=== PATIENT | female | born 1945 | race Caucasian/White ===

== ENCOUNTER → 2016-04-02 | Outpatient (CLI) | payer MEDICARE, MEDICAID | LOC: MW.CHRC 09:12 | PROVIDERS: ATTEND Family Medicine | DX: I10 Essential (primary) hypertension (principal); E78.00 Pure hypercholesterolemia, unspecified; R73.01 Impaired fasting glucose | CPT/HCPCS: 36415; 80053; 80061; 83036; G0463 ==

== ENCOUNTER → 2016-04-29 | Outpatient (CLI) | payer MEDICARE, MEDICAID | LOC: MW.CHPOD 09:16 | PROVIDERS: ATTEND Podiatrist Foot & Ankle Surgery | DX: M79.672 Pain in left foot (principal); S89.92XA Unspecified injury of left lower leg, initial encounter; E66.01 Morbid (severe) obesity due to excess calories; R26.9 Unspecified abnormalities of gait and mobility; M77.9 Enthesopathy, unspecified | CPT/HCPCS: 29540; 99205 ==

== ENCOUNTER → 2016-05-11 | Outpatient (CLI) | payer MEDICARE, MEDICAID ==
--- NOTE | 2016-05-11 16:11 | CR ---
EXAMINATION: Bilateral feet HISTORY: Pain COMPARISON: 12/03/2015 TECHNIQUE: 2 views bilaterally FINDINGS: Postsurgical changes are noted within the left first metatarsal secondary to bunionectomy. There is minimal hallux valgus residually and bilaterally. The osseous structures appear osteopenic . No fracture or dislocation. Mild valgus angulation of the MTP joints the second and third digits b ilaterally. Moderate plantar and Achilles calcaneal enthesophytes are noted. Mild plus planus bilate rally. IMPRESSION: 1. No acute osseous abnormalities. 2. Postsurgical changes within the first left metatarsal. 3. Plantar calcaneal spurs bilaterally. 4. Generalized osteopenia. 5. Mild valgus angulation of the second and third MTP joints.
== END ==
LOC: MW.DI 11:59
PROVIDERS: ATTEND Podiatrist Foot & Ankle Surgery
DX: R26.9 Unspecified abnormalities of gait and mobility (principal); M20.62 Acquired deformities of toe(s), unspecified, left foot; M79.672 Pain in left foot; M77.9 Enthesopathy, unspecified
CPT/HCPCS: 736202650; 73620-50; 99215

== ENCOUNTER → 2016-06-01 | Outpatient (CLI) | payer MEDICARE, MEDICAID | LOC: MW.CHPOD 08:00 | PROVIDERS: ATTEND Podiatrist Foot & Ankle Surgery | DX: S89.92XD Unspecified injury of left lower leg, subsequent encounter (principal); M79.672 Pain in left foot; R26.9 Unspecified abnormalities of gait and mobility; M77.42 Metatarsalgia, left foot | CPT/HCPCS: G0463 ==

== ENCOUNTER → 2016-06-15 | Outpatient (CLI) | payer MEDICARE, MEDICAID ==
--- NOTE | 2016-06-15 14:58 | CR ---
EXAMINATION: Right knee HISTORY: Artificial joint COMPARISON: 06/05/2015 TECHNIQUE: 3 views FINDINGS/IMPRESSION: Right total knee hardware is demonstrated in good position and alignment. No fr acture or acute osseous abnormality. No joint effusion.
== END ==
LOC: MW.CHORTHO 07:07
PROVIDERS: ATTEND Orthopaedic Surgery
DX: Z96.651 Presence of right artificial knee joint (principal); M17.11 Unilateral primary osteoarthritis, right knee
CPT/HCPCS: 73562-26-RT; 73562-RT; G0463

== ENCOUNTER → 2016-06-18 | Outpatient (CLI) | payer MEDICARE, MEDICAID | LOC: MW.CHRC 08:35 | PROVIDERS: ATTEND Family Medicine | DX: I10 Essential (primary) hypertension (principal); E78.00 Pure hypercholesterolemia, unspecified; R73.01 Impaired fasting glucose; G89.4 Chronic pain syndrome; I12.9 Hypertensive chronic kidney disease with stage 1 through stage 4 chronic kidney disease, or unspecified chronic kidney disease; T50.2X5D Adverse effect of carbonic-anhydrase inhibitors, benzothiadiazides and other diuretics, subsequent encounter; E87.6 Hypokalemia | CPT/HCPCS: 36415; 80053; 80061; 83036; 99215 ==

== ENCOUNTER 2016-07-04 20:36 | Emergency (ER) | payer MEDICARE, MEDICAID ==
[2016-07-04] MEDS ORDERED: Morphine 2 MG/ML Syringe IVPUSH ONE (20:44)
[2016-07-04] MEDS ORDERED: Ondansetron 4 MG/2 ML SDV IVPUSH ONE (20:44)
[2016-07-04] MEDS ORDERED: Sodium Chloride 0.9% 1,000 ML IV ONE (20:44)
--- NOTE | 2016-07-04 20:58 | EDM.PDOC ---
ED HPI GENERAL MEDICAL PROBLEM - General Chief Complaint: Back Pain or Injury Stated Complaint: PT HAS BACK PAINS Time Seen by Provider: 07/04/16 20:52 Source of Information: Reports: Patient History Limitations: Reports: No Limitations - History of Present Illness INITIAL COMMENTS - FREE TEXT/NARRATIVE: History of present illness: [71-year-old female brought in by EMS secondary to acute back pain. Patient is lying on gurney stating that she has pain in her abdomen, and back and it feels like the band and she does understand where the pain is coming from patient repeats herself in puzzlement in regards to her pain and why she is hurting. She denies any trauma or any acute changes] Review of systems: As per history of present illness and below otherwise all systems reviewed and negative. Past medical history: As per history of present illness and as reviewed below otherwise noncontributory. Surgical history: As per history of present illness and as reviewed below otherwise noncontributory. Social history: No reported history of drug or alcohol abuse. Family history: As per history of present illness and as reviewed below otherwise noncontributory. Physical exam: HEENT: Atraumatic, normocephalic, pupils reactive, negative for conjunctival pallor or scleral icterus, mucous membranes moist, throat clear, neck supple, nontender, trachea midline. Lungs: Clear to auscultation, breath sounds equal bilaterally, chest nontender. Heart: S1S2, regular, negative for clicks, rubs, or JVD. Abdomen: Soft, obese distended with diffuse non specific tenderness. Negative for masses or hepatosplenomegaly. Negative for costovertebral tenderness. Pelvis: Stable nontender. Genitourinary: Deferred. Rectal: Deferred. Extremities: Atraumatic, negative for cords or calf pain. Neurovascular unremarkable. Neuro: Awake, alert, oriented. Cranial nerves II through XII unremarkable. Cerebellum unremarkable. Motor and sensory unremarkable throughout. Exam nonfocal. Diagnostics: [CBC, CMP, UA] Therapeutics: [IV, morphine, Zofran] Impression: [Back pain acute on chronic] Plan: [Followup with PCP patient on he has pain medication] Definitive disposition and diagnosis as appropriate pending reevaluation and review of above. Treatments SECURITY MONITOR: Reports: IV/IO Lower Back Pain Score (Numeric/FACES): 10 - Related Data Allergies Allergy/AdvReac Type Severity Reaction Status Date / Time Tape adhesives Allergy Blisters Uncoded 12/03/15 11:32 Home Meds: Home Meds Furosemide 40 mg PO BID 11/08/14 [History] Metoprolol Tartrate [Lopressor] 25 mg PO BID 11/08/14 [History] Nitroglycerin [Nitrostat] 0.4 mg SL ASDIRECTED PRN 11/08/14 [History] Oxybutynin Chloride 5 mg PO BID 11/08/14 [History] Pramipexole Di-HCl [Mirapex] 1 mg PO BEDTIME PRN 11/08/14 [History] Rosuvastatin [Crestor] 40 mg PO DAILY 11/08/14 [History] Valsartan 80 mg PO DAILY 11/08/14 [History] FLUoxetine [PROzac] 20 mg PO DAILY 05/22/15 [History] Multivitamin [Multi-Vitamin Daily] 1 tab PO DAILY 05/22/15 [History] Potassium Chloride 10 meq PO DAILY 05/22/15 [History] ALPRAZolam [Alprazolam] 0.5 mg PO BID PRN 08/20/15 [History] Aspirin [Children's Aspirin] 81 mg PO DAILY 08/20/15 [History] Acetaminophen/HYDROcodone [[place] 325-5 MG] 1 tab PO Q6H PRN #14 tablet 12/03/15 [Rx] Gabapentin [Neurontin] 300 mg PO DAILY #30 cap 12/03/15 [Rx] traZODone HCl [Trazodone HCl] 50 mg PO BEDTIME PRN 07/04/16 [History] Past Medical History HEENT History: Reports: Cataract, Impaired Vision Other HEENT History: wears glasses, has upper dentures, loss of peripheral vision. 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 Other Genitourinary History: Stage III Kidney Disease [facility]ER History: Reports: Musculoskeletal History: Reports: Back Pain, Chronic Other Musculoskeletal History: Lot of arthritis to back, hx: fracturing Right and Left ankle, Right and Left arms, 2 toes Neurological History: Reports: None Other Neuro History: Restless Leg syndrome Psychiatric History: Reports: Anxiety, Depression Other Psychiatric History: "Some depression, but have good supports and reach out" Endocrine/Metabolic History: Reports: Obesity/BMI 30+ Other Endocrine/Metabolic History: History of Type I diabetes in dictation, she reports 'abnormal glucose' Hematologic History: Reports: None Immunologic History: Reports: None Oncologic (Cancer) History: Reports: Other (See Below) Other Oncologic History: skin cancer on nose, uterus ca, removal of stomach tumor Dermatologic History: Reports: Other (See Below) Other Dermatologic History: ABnormal cells to face, recent office procedure to remove or freeze - Infectious Disease History Infectious Disease History: Reports: Chicken Pox, Measles - Past Surgical History HEENT Surgical History: Reports: Cataract Surgery, Tonsillectomy, Other (See Below) Cardiovascular Surgical History: Reports: None Female Surgical History: Reports: Hysterectomy Endocrine Surgical History: Reports: None Other Endocrine Surgeries/Procedures: pt states she does not have diabetes Neurological Surgical History: Reports: Discectomy Other Neurological Surgeries/Procedures: 3 discs in back Musculoskeletal Surgical History: Reports: Knee Replacement, Other (See Below) Other Musculoskeletal Surgeries/Procedures:: right knee replacemnt, back surgery L3-L4 Oncologic Surgical History: Reports: Other (See Below) Social & Family History - Family History Family Medical History: Noncontributory Oncologic: Reports: Cervix, Lung, Other (See Below) Other Oncologic Family History: spine - Tobacco Use Smoking Status *Q: Never Smoker Years of Tobacco use: 20 Used Tobacco, but Quit: Yes Month Tobacco Last Used: April Second Hand Smoke Exposure: No - Caffeine Use Caffeine Use: Reports: None - Recreational Drug Use Recreational Drug Use: No Drug Use in Last 12 Months: No ED ROS GENERAL - Review of Systems Review Of Systems: See Below (The history of present illness) ED EXAM, GENERAL - Physical Exam Exam: See Below (See history of present illness) Course - Vital Signs Last Recorded V/S: Last Vital Signs Temp 36.2 C 07/04/16 20:41 Pulse 93 07/04/16 21:09 Resp 18 07/04/16 21:09 BP 149/68 H 07/04/16 21:09 Pulse Ox 93 L 07/04/16 21:09 - Orders/Labs/Meds Labs: Laboratory Tests 07/04/16 07/04/16 07/04/16 Range/Units 21:00 21:00 21:43 WBC 7.63 (4.0-11.0) K/uL RBC 4.81 (4.30-5.90) M/uL Hgb 13.5 (12.0-16.0) g/dL Hct 41.3 (36.0-46.0) % MCV 85.9 (80.0-98.0) fL MCH 28.1 (27.0-32.0) pg MCHC 32.7 (31.0-37.0) g/dL RDW Std Deviation 47.9 (28.0-62.0) fl RDW Coeff of Shu 15 (11.0-15.0) % Plt Count 187 (150-400) K/uL MPV 10.80 (7.40-12.00) fL Neut % (Auto) 41.6 L (48.0-80.0) % Lymph % (Auto) 48.0 H (16.0-40.0) % [place] % (Auto) 6.6 (0.0-15.0) % Eos % (Auto) 3.3 (0.0-7.0) % Baso % (Auto) 0.5 (0.0-1.5) % Neut # (Auto) 3.2 (1.4-5.7) K/uL Lymph # (Auto) 3.7 H (0.6-2.4) K/uL Irion # (Auto) 0.5 (0.0-0.8) K/uL Eos # (Auto) 0.3 (0.0-0.7) K/uL Baso # (Auto) 0.0 (0.0-0.1) K/uL Nucleated RBC % 0.0 /100WBC Nucleated RBCs # 0 K/uL Sodium 142 (136-146) mmol/L Potassium 3.8 (3.5-5.1) mmol/L Chloride 110 (98-110) mmol/L Carbon Dioxide 24 (21-31) mmol/L BUN 38 H (6.0-23.0) mg/dL Creatinine 1.2 (0.6-1.5) mg/dL Est Cr Clr Drug Dosing 36.59 mL/min Estimated GFR (MDRD) 44.2 ml/min Glucose 93 (60-110) mg/dL Calcium 9.8 (8.8-10.8) mg/dL Total Bilirubin 0.7 (0.1-1.5) mg/dL AST 13 (5-40) IU/L ALT 13 (8-54) IU/L Alkaline Phosphatase 58 (40-150) Total Protein 7.3 (6.0-8.0) g/dL Albumin 4.1 (3.4-4.8) g/dL Globulin 3.2 (2.0-3.5) g/dL Albumin/Globulin Ratio 1.3 (1.3-2.8) Urine Color YELLOW Urine Appearance HAZY Urine pH 5.5 (5.0-8.0) Ur Specific Cable 1.015 (1.001-1.035) Urine Protein NEGATIVE (NEGATIVE) mg/dL Urine Glucose (UA) NEGATIVE (NEGATIVE) mg/dL Urine Ketones NEGATIVE (NEGATIVE) mg/dL Urine Occult Blood NEGATIVE (NEGATIVE) Urine Nitrite NEGATIVE (NEGATIVE) Urine Bilirubin NEGATIVE (NEGATIVE) Urine Urobilinogen 0.2 (<2.0) EU/dL Ur Leukocyte Esterase TRACE (NEGATIVE) Urine RBC 0-2 (0-2/HPF) Urine WBC 0-4 (0-5/HPF) Ur Epithelial Cells RARE (NONE-FEW) Ur Renal Epithelial Cell RARE Urine Bacteria FEW (NEGATIVE) Urine Mucus LIGHT (NONE-MOD) Meds: Medications Discontinued Medications Generic Name Dose Route Start Last Admin Trade Name Freq PRN Reason Stop Dose Admin Sodium Chloride 1,000 mls @ 999 mls/hr 07/04/16 20:44 07/04/16 20:59 Normal Saline IV 07/04/16 21:44 999 mls/hr STAT ONE Administration Morphine Sulfate 2 mg 07/04/16 20:44 07/04/16 21:04 Morphine IVPUSH 07/04/16 20:45 2 mg ONETIME ONE Administration Ondansetron HCl 8 mg 07/04/16 20:44 07/04/16 21:01 Zofran IVPUSH 07/04/16 20:45 8 mg ONETIME ONE Administration Departure - Departure Time of Disposition: 22:10 Disposition: Home, Self-Care 01 Condition: good Clinical Impression: Back pain - Discharge Information Instructions: Back Pain, Adult, [id number] Forms: ED Department Discharge Additional Instructions: The following information is given to patients seen in the emergency department who are being discharged to home. This information is to outline your options for follow-up care. We provide all patients seen in our emergency department with a follow-up referral. The need for follow-up, as well as the timing and circumstances, are variable depending upon the specifics of your emergency department visit. If you don't have a primary care physician on staff, we will provide you with a referral. We always advise you to contact your personal physician following an emergency department visit to inform them of the circumstance of the visit and for follow-up with them and/or the need for any referrals to a consulting specialist. The emergency department will also refer you to a specialist when appropriate. This referral assures that you have the opportunity for follow-up care with a specialist. All of these measure are taken in an effort to provide you with optimal care, which includes your follow-up. Under all circumstances we always encourage you to contact your private physician who remains a resource for coordinating your care. When calling for follow-up care, please make the office aware that this follow-up is from your recent emergency room visit. If for any reason you are refused follow-up, please contact the [facility] Emergency Department at and asked to speak to the emergency department charge nurse. Take your pain medication majority have Followup with PCP 1-2 days Turned ED as needed as discussed
[2016-07-04 22:44] VITALS: BP 125/64
== END 2016-07-04 22:37 | disposition home or self-care (01) ==
LOC: MW.ED 20:36
DX: M54.9 Dorsalgia, unspecified (principal); E10.22 Type 1 diabetes mellitus with diabetic chronic kidney disease; I13.0 Hypertensive heart and chronic kidney disease with heart failure and stage 1 through stage 4 chronic kidney disease, or unspecified chronic kidney disease; I50.9 Heart failure, unspecified; N18.3 Chronic kidney disease, stage 3 (moderate); E66.9 Obesity, unspecified; F32.9 Major depressive disorder, single episode, unspecified; F41.9 Anxiety disorder, unspecified; G89.29 Other chronic pain; M19.90 Unspecified osteoarthritis, unspecified site; Z79.82 Long term (current) use of aspirin; Z79.899 Other long term (current) drug therapy; Z90.710 Acquired absence of both cervix and uterus; Z98.890 Other specified postprocedural states; Z96.651 Presence of right artificial knee joint; Z68.43 Body mass index [BMI] 50.0-59.9, adult; Z98.49 Cataract extraction status, unspecified eye; Z91.09 Other allergy status, other than to drugs and biological substances
CPT/HCPCS: 36415; 80053; 81001; 85025; 96361; 96374; 96375; 99284; J2270; J2405; J7040

== ENCOUNTER 2016-09-21 22:22 | Emergency (ER) | payer MEDICARE, MEDICAID ==
[2016-09-21] MEDS ORDERED: Sodium Chloride 0.9% 10 ML Syringe FLUSH PRN (22:30)
[2016-09-21] MEDS ORDERED: Sodium Chloride 0.9% 2.5 ML Syringe FLUSH PRN (22:30)
[2016-09-21] MEDS ORDERED: Dicyclomine 10 MG Cap PO ONE (22:31)
--- NOTE | 2016-09-21 22:37 | EDM.PDOC ---
ED HPI GENERAL MEDICAL PROBLEM - General Chief Complaint: Gastrointestinal Problem Stated Complaint: AMBULANCE Time Seen by Provider: 09/21/16 22:29 - History of Present Illness INITIAL COMMENTS - FREE TEXT/NARRATIVE: HISTORY AND PHYSICAL: History of present illness: The patient is a 71-year-old female with a history of hypertension and hypercholesterolemia chronic kidney disease stage III obstructive sleep apnea city follows in our family practice clinic and presents with complaints of 3 days of symptoms; she says that on Tuesday she had nausea and vomiting and then diarrhea and the nausea and vomiting has since stopped after 24 hours. The diarrhea has continued and she's had about 4 episodes today of watery stool which is not black or bloody. She also says that today this afternoon she started having shortness of breath and a dry hacking cough. She has not had a fever or urinary complaints and says that her abdomen is discomforting and cramping with the diarrhea overall is not sharp pain and she has no flank pain. She has no chest pain per se. The patient says she is compliant with her medications. The patient came by EMS and says that she called because of the shortness of breath and she felt like she might pass out. She has generalized weakness and malaise as well for the last 24 hours. She says she is trying to eat and drink but perhaps not doing as well as usual The patient told EMS and me that she used to have home oxygen when she lived in [place] but since she's been in this area in [place] for the last 8 years she has not used it or needed. She says her provider did not feel that it was necessary Review of systems: As per history of present illness and below otherwise all systems reviewed and negative. Past medical history: As per history of present illness and as reviewed below otherwise noncontributory. Surgical history: As per history of present illness and as reviewed below otherwise noncontributory. Social history: No reported history of drug or alcohol abuse. Family history: As per history of present illness and as reviewed below otherwise noncontributory. Physical exam: General: Well-developed well-nourished obese patient was nontoxic and speaking clearly in the ED without breathlessness. She moves easily in the bed without distress. Vital signs of the note by me HEENT: Atraumatic, normocephalic, pupils reactive, negative for conjunctival pallor or scleral icterus, mucous membranes tacky, throat clear, neck supple, nontender, trachea midline. Cervical adenopathy or nuchal rigidity Lungs: Clear to auscultation with some coarse breath sounds at the right base but no worker breathing stridor or wheezing or sensory muscle use, breath sounds equal bilaterally, chest nontender. Heart: S1S2, regular rate and rhythm and no overt murmur Abdomen: Soft, nondistended, hypoactive bowel sounds and obese abdomen, there is some mild tenderness in the left mid abdomen without rebound or guarding. Negative for masses or hepatosplenomegaly. Negative for costovertebral tenderness. Pelvis: Stable nontender. Genitourinary: Deferred. Rectal: Deferred. Extremities: Atraumatic, negative for cords or calf pain. Neurovascular unremarkable. Full range of motion without defects or deficits Neuro: Awake, alert, oriented. Cranial nerves II through XII unremarkable. Cerebellum unremarkable. Motor and sensory unremarkable throughout. Exam nonfocal. Skin: Normal turgor no evidence of any overt rashes or lesions Diagnostics: EKG CBC CMP amylase lipase troponin INR magnesium level UA BNP chest x-ray orthostatic vitals lactic acid We will collect stool and send it for culture if the patient produces Therapeutics: IV O2 monitor gentle IV fluids Bentyl potassium magnesium Rocephin I discussed with the patient all testing results and will give her a dose of potassium and magnesium here as well as a dose of antibiotics for the early UTI. Because the patient felt lightheaded at home and the subjective dyspnea I offered her an admission and she would decline that at this time. She will prefer to go home and follow-up in the clinic. She is aware of my concerns and is accepting of them. I've advised her on reasons to return to the ED and to call the clinic tomorrow for follow-up. I will give her Bentyl for home for any cramping in the diarrhea and a prescription for antibiotics that she can fill tomorrow as well. Impression: Subjective dyspnea, lightheadedness, diarrhea, early UTI Mild hypokalemia and hypomagnesemia Definitive disposition and diagnosis as appropriate pending reevaluation and review of above. no pain Pain Score (Numeric/FACES): 0 - Related Data Allergies Allergy/AdvReac Type Severity Reaction Status Date / Time Tape adhesives Allergy Blisters Uncoded 09/21/16 22:25 Home Meds: Home Meds Furosemide 40 mg PO BID 11/08/14 [History] Metoprolol Tartrate [Lopressor] 25 mg PO BID 11/08/14 [History] Nitroglycerin [Nitrostat] 0.4 mg SL ASDIRECTED PRN 11/08/14 [History] Oxybutynin Chloride 5 mg PO BID 11/08/14 [History] Pramipexole Di-HCl [Mirapex] 1 mg PO BEDTIME PRN 11/08/14 [History] Rosuvastatin [Crestor] 40 mg PO DAILY 11/08/14 [History] Valsartan 80 mg PO DAILY 11/08/14 [History] FLUoxetine [PROzac] 20 mg PO DAILY 05/22/15 [History] Multivitamin [Multi-Vitamin Daily] 1 tab PO DAILY 05/22/15 [History] Potassium Chloride 10 meq PO DAILY 05/22/15 [History] ALPRAZolam [Alprazolam] 0.5 mg PO BID PRN 08/20/15 [History] Aspirin [Children's Aspirin] 81 mg PO DAILY 08/20/15 [History] Acetaminophen/HYDROcodone [[place] 325-5 MG] 1 tab PO Q6H PRN #14 tablet 12/03/15 [Rx] Gabapentin [Neurontin] 300 mg PO DAILY #30 cap 12/03/15 [Rx] traZODone HCl [Trazodone HCl] 50 mg PO BEDTIME PRN 07/04/16 [History] Past Medical History HEENT History: Reports: Cataract, Impaired Vision Other HEENT History: wears glasses, has upper dentures, loss of peripheral vision. 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 Other Genitourinary History: Stage III Kidney Disease [employer] History: Reports: Musculoskeletal History: Reports: Back Pain, Chronic Other Musculoskeletal History: Lot of arthritis to back, hx: fracturing Right and Left ankle, Right and Left arms, 2 toes Neurological History: Reports: None Other Neuro History: Restless Leg syndrome Psychiatric History: Reports: Anxiety, Depression Other Psychiatric History: "Some depression, but have good supports and reach out" Endocrine/Metabolic History: Reports: Obesity/BMI 30+ Other Endocrine/Metabolic History: History of Type I diabetes in dictation, she reports 'abnormal glucose' Hematologic History: Reports: None Immunologic History: Reports: None Oncologic (Cancer) History: Reports: Other (See Below) Other Oncologic History: skin cancer on nose, uterus ca, removal of stomach tumor Dermatologic History: Reports: Other (See Below) Other Dermatologic History: ABnormal cells to face, recent office procedure to remove or freeze - Infectious Disease History Infectious Disease History: Reports: Chicken Pox, Measles - Past Surgical History HEENT Surgical History: Reports: Cataract Surgery, Tonsillectomy, Other (See Below) Cardiovascular Surgical History: Reports: None Female Surgical History: Reports: Hysterectomy Endocrine Surgical History: Reports: None Other Endocrine Surgeries/Procedures: pt states she does not have diabetes Neurological Surgical History: Reports: Discectomy Other Neurological Surgeries/Procedures: 3 discs in back Musculoskeletal Surgical History: Reports: Knee Replacement, Other (See Below) Other Musculoskeletal Surgeries/Procedures:: right knee replacemnt, back surgery L3-L4 Oncologic Surgical History: Reports: Other (See Below) Social & Family History - Family History Family Medical History: Noncontributory Oncologic: Reports: Cervix, Lung, Other (See Below) Other Oncologic Family History: spine - Tobacco Use Smoking Status *Q: Never Smoker Years of Tobacco use: 20 Used Tobacco, but Quit: Yes Month Tobacco Last Used: April Second Hand Smoke Exposure: No - Caffeine Use Caffeine Use: Reports: None - Recreational Drug Use Recreational Drug Use: No Drug Use in Last 12 Months: No ED ROS GENERAL - Review of Systems Review Of Systems: ROS reveals no pertinent complaints other than HPI. ED EXAM, GENERAL - Physical Exam Exam: See Below (See dictation) Course - Vital Signs Last Recorded V/S: Last Vital Signs Temp 36.3 C 09/21/16 22:25 Pulse 73 09/21/16 22:25 Resp 24 H 09/21/16 22:25 BP 120/66 09/21/16 22:25 Pulse Ox 95 09/21/16 22:31 Orthostatic Blood Pressure [ 108/42 Standing] Orthostatic Blood Pressure [ 104/46 Sitting] - Orders/Labs/Meds Orders: Active Orders 24 hr Category Date Time Status Cardiac Monitoring [RC] . DIRECTED Care 09/21/16 22:29 Active EKG Documentation Completion [RC] STAT Care 09/21/16 22:29 Active Orthostatic Vital Signs [RC] ASDIRECTED Care 09/21/16 22:31 Active Oxygen Therapy, ED [RC] ASDIRECTED Care 09/21/16 22:29 Active Pulse Oximetry [RC] ASDIRECTED Care 09/21/16 22:29 Active Chest 2V [CR] Stat Exams 09/21/16 22:30 Taken CULTURE URINE [RM] Stat Lab 09/21/16 22:45 Received Sodium Chloride 0.9% [Normal Saline] 500 ml Med 09/21/16 22:45 Active IV STAT Sodium Chloride 0.9% [Saline Flush] Med 09/21/16 22:30 Active 10 ml FLUSH ASDIRECTED PRN Sodium Chloride 0.9% [Saline Flush] Med 09/21/16 22:30 Active 2.5 ml FLUSH ASDIRECTED PRN cefTRIAXone [Rocephin in Dextrose,Iso-Osm 1 GM/50 ML] 1 Med 09/21/16 23:41 Ordered gm Premix Bag 1 bag IV ONETIME Saline Lock Insert [OM.PC] Stat Oth 09/21/16 22:29 Ordered Medication Orders Sodium Chloride (Normal Saline) 500 mls @ 999 mls/hr IV STAT HUMBERTO Last Admin: 09/21/16 22:43 Dose: 999 mls/hr Ceftriaxone Sodium/Dextrose 1 (gm/ Premix) 50 mls @ 100 mls/hr IV ONETIME ONE Stop: 09/22/16 00:10 Sodium Chloride (Saline Flush) 10 ml FLUSH ASDIRECTED PRN PRN Reason: Keep Vein Open Sodium Chloride (Saline Flush) 2.5 ml FLUSH ASDIRECTED PRN PRN Reason: Keep Vein Open Labs: Laboratory Tests 09/21/16 09/21/16 09/21/16 Range/Units 22:45 22:47 22:47 WBC 8.43 (4.0-11.0) K/uL RBC 4.35 (4.30-5.90) M/uL Hgb 12.5 (12.0-16.0) g/dL Hct 37.9 (36.0-46.0) % MCV 87.1 (80.0-98.0) fL MCH 28.7 (27.0-32.0) pg MCHC 33.0 (31.0-37.0) g/dL RDW Std Deviation 50.9 (28.0-62.0) fl RDW Coeff of Shu 16 H (11.0-15.0) % Plt Count 187 (150-400) K/uL MPV 10.90 (7.40-12.00) fL Neut % (Auto) 35.5 L (48.0-80.0) % Lymph % (Auto) 50.3 H (16.0-40.0) % [place] % (Auto) 9.7 (0.0-15.0) % Eos % (Auto) 3.9 (0.0-7.0) % Baso % (Auto) 0.6 (0.0-1.5) % Neut # (Auto) 3.0 (1.4-5.7) K/uL Lymph # (Auto) 4.2 H (0.6-2.4) K/uL [place] # (Auto) 0.8 (0.0-0.8) K/uL Eos # (Auto) 0.3 (0.0-0.7) K/uL Baso # (Auto) 0.1 (0.0-0.1) K/uL Nucleated RBC % 0.0 /100WBC Nucleated RBCs # 0 K/uL INR 0.95 (0.86-1.11) Lactate (0.20-2.00) mmol/L Sodium (136-146) mmol/L Potassium (3.5-5.1) mmol/L Chloride (98-110) mmol/L Carbon Dioxide (21-31) mmol/L BUN (6.0-23.0) mg/dL Creatinine (0.6-1.5) mg/dL Est Cr Clr Drug Dosing mL/min Estimated GFR (MDRD) ml/min Glucose (60-110) mg/dL Calcium (8.8-10.8) mg/dL Magnesium (1.5-2.3) mEq/L Total Bilirubin (0.1-1.5) mg/dL AST (5-40) IU/L ALT (8-54) IU/L Alkaline Phosphatase (40-150) Troponin I (0.0-0.29) NG/ML B-Natriuretic Peptide (<100) PG/ML Total Protein (6.0-8.0) g/dL Albumin (3.4-4.8) g/dL Globulin (2.0-3.5) g/dL Albumin/Globulin Ratio (1.3-2.8) Amylase (10-90) U/L Lipase (7-80) U/L Urine Color YELLOW Urine Appearance CLEAR Urine pH 6.0 (5.0-8.0) Ur Specific [place] 1.020 (1.001-1.035) Urine Protein NEGATIVE (NEGATIVE) mg/dL Urine Glucose (UA) NEGATIVE (NEGATIVE) mg/dL Urine Ketones NEGATIVE (NEGATIVE) mg/dL Urine Occult Blood NEGATIVE (NEGATIVE) Urine Nitrite NEGATIVE (NEGATIVE) Urine Bilirubin NEGATIVE (NEGATIVE) Urine Urobilinogen 0.2 (<2.0) EU/dL Ur Leukocyte Esterase SMALL (NEGATIVE) Urine RBC 0-1 (0-2/HPF) Urine WBC 4-6 (0-5/HPF) Ur Epithelial Cells FEW (NONE-FEW) Urine Bacteria FEW (NEGATIVE) 09/21/16 09/21/16 09/21/16 Range/Units 22:47 22:47 22:47 WBC (4.0-11.0) K/uL RBC (4.30-5.90) M/uL Hgb (12.0-16.0) g/dL Hct (36.0-46.0) % MCV (80.0-98.0) fL MCH (27.0-32.0) pg MCHC (31.0-37.0) g/dL RDW Std Deviation (28.0-62.0) fl RDW Coeff of Shu (11.0-15.0) % Plt Count (150-400) K/uL MPV (7.40-12.00) fL Neut % (Auto) (48.0-80.0) % Lymph % (Auto) (16.0-40.0) % [place] % (Auto) (0.0-15.0) % Eos % (Auto) (0.0-7.0) % Baso % (Auto) (0.0-1.5) % Neut # (Auto) (1.4-5.7) K/uL Lymph # (Auto) (0.6-2.4) K/uL [place] # (Auto) (0.0-0.8) K/uL Eos # (Auto) (0.0-0.7) K/uL Baso # (Auto) (0.0-0.1) K/uL Nucleated RBC % /100WBC Nucleated RBCs # K/uL INR (0.86-1.11) Lactate 1.1 (0.20-2.00) mmol/L Sodium 145 (136-146) mmol/L Potassium 3.2 L (3.5-5.1) mmol/L Chloride 110 (98-110) mmol/L Carbon Dioxide 24 (21-31) mmol/L BUN 25 H (6.0-23.0) mg/dL Creatinine 1.1 (0.6-1.5) mg/dL Est Cr Clr Drug Dosing 40.21 mL/min Estimated GFR (MDRD) 48.8 ml/min Glucose 127 H (60-110) mg/dL Calcium 8.7 L (8.8-10.8) mg/dL Magnesium 1.4 L (1.5-2.3) mEq/L Total Bilirubin 0.3 (0.1-1.5) mg/dL AST 14 (5-40) IU/L ALT 16 (8-54) IU/L Alkaline Phosphatase 87 (40-150) Troponin I < 0.10 (0.0-0.29) NG/ML B-Natriuretic Peptide (<100) PG/ML Total Protein 6.5 (6.0-8.0) g/dL Albumin 3.4 (3.4-4.8) g/dL Globulin 3.1 (2.0-3.5) g/dL Albumin/Globulin Ratio 1.1 L (1.3-2.8) Amylase 64 (10-90) U/L Lipase 23 (7-80) U/L Urine Color Urine Appearance Urine pH (5.0-8.0) Ur Specific [place] (1.001-1.035) Urine Protein (NEGATIVE) mg/dL Urine Glucose (UA) (NEGATIVE) mg/dL Urine Ketones (NEGATIVE) mg/dL Urine Occult Blood (NEGATIVE) Urine Nitrite (NEGATIVE) Urine Bilirubin (NEGATIVE) Urine Urobilinogen (<2.0) EU/dL Ur Leukocyte Esterase (NEGATIVE) Urine RBC (0-2/HPF) Urine WBC (0-5/HPF) Ur Epithelial Cells (NONE-FEW) Urine Bacteria (NEGATIVE) 09/21/16 Range/Units 22:47 WBC (4.0-11.0) K/uL RBC (4.30-5.90) M/uL Hgb (12.0-16.0) g/dL Hct (36.0-46.0) % MCV (80.0-98.0) fL MCH (27.0-32.0) pg MCHC (31.0-37.0) g/dL RDW Std Deviation (28.0-62.0) fl RDW Coeff of Shu (11.0-15.0) % Plt Count (150-400) K/uL MPV (7.40-12.00) fL Neut % (Auto) (48.0-80.0) % Lymph % (Auto) (16.0-40.0) % [place] % (Auto) (0.0-15.0) % Eos % (Auto) (0.0-7.0) % Baso % (Auto) (0.0-1.5) % Neut # (Auto) (1.4-5.7) K/uL Lymph # (Auto) (0.6-2.4) K/uL [place] # (Auto) (0.0-0.8) K/uL Eos # (Auto) (0.0-0.7) K/uL Baso # (Auto) (0.0-0.1) K/uL Nucleated RBC % /100WBC Nucleated RBCs # K/uL INR (0.86-1.11) Lactate (0.20-2.00) mmol/L Sodium (136-146) mmol/L Potassium (3.5-5.1) mmol/L Chloride (98-110) mmol/L Carbon Dioxide (21-31) mmol/L BUN (6.0-23.0) mg/dL Creatinine (0.6-1.5) mg/dL Est Cr Clr Drug Dosing mL/min Estimated GFR (MDRD) ml/min Glucose (60-110) mg/dL Calcium (8.8-10.8) mg/dL Magnesium (1.5-2.3) mEq/L Total Bilirubin (0.1-1.5) mg/dL AST (5-40) IU/L ALT (8-54) IU/L Alkaline Phosphatase (40-150) Troponin I (0.0-0.29) NG/ML B-Natriuretic Peptide < 15 (<100) PG/ML Total Protein (6.0-8.0) g/dL Albumin (3.4-4.8) g/dL Globulin (2.0-3.5) g/dL Albumin/Globulin Ratio (1.3-2.8) Amylase (10-90) U/L Lipase (7-80) U/L Urine Color Urine Appearance Urine pH (5.0-8.0) Ur Specific [place] (1.001-1.035) Urine Protein (NEGATIVE) mg/dL Urine Glucose (UA) (NEGATIVE) mg/dL Urine Ketones (NEGATIVE) mg/dL Urine Occult Blood (NEGATIVE) Urine Nitrite (NEGATIVE) Urine Bilirubin (NEGATIVE) Urine Urobilinogen (<2.0) EU/dL Ur Leukocyte Esterase (NEGATIVE) Urine RBC (0-2/HPF) Urine WBC (0-5/HPF) Ur Epithelial Cells (NONE-FEW) Urine Bacteria (NEGATIVE) Meds: Medications Generic Name Dose Route Start Last Admin Trade Name Freq PRN Reason Stop Dose Admin Sodium Chloride 500 mls @ 999 mls/hr 09/21/16 22:45 09/21/16 22:43 Normal Saline IV 999 mls/hr STAT HUMBERTO Administration Ceftriaxone Sodium/Dextrose 1 50 mls @ 100 mls/hr 09/21/16 23:41 gm/ Premix IV 09/22/16 00:10 ONETIME ONE Sodium Chloride 10 ml 09/21/16 22:30 Saline Flush FLUSH ASDIRECTED PRN Keep Vein Open Sodium Chloride 2.5 ml 09/21/16 22:30 Saline Flush FLUSH ASDIRECTED PRN Keep Vein Open Discontinued Medications Generic Name Dose Route Start Last Admin Trade Name Freq PRN Reason Stop Dose Admin Dicyclomine HCl 20 mg 09/21/16 22:31 09/21/16 22:42 Bentyl PO 09/21/16 22:32 20 mg ONETIME ONE Administration Magnesium Oxide 400 mg 09/21/16 23:40 Magnesium Oxide PO 09/21/16 23:41 ONETIME ONE Potassium Chloride 20 meq 09/21/16 23:40 Klor-Con M20 PO 09/21/16 23:41 ONETIME ONE Departure - Departure Time of Disposition: 23:47 Disposition: Home, Self-Care 01 Condition: Good Clinical Impression: UTI, Urinary tract infectious disease, Diarrhea, Lightheadedness Dyspnea, unspecified Qualifiers: Dyspnea type: unspecified Qualified Code(s): R06.00 - Dyspnea, unspecified - Discharge Information Forms: ED Department Discharge Additional Instructions: The following information is given to patients seen in the emergency department who are being discharged to home. This information is to outline your options for follow-up care. We provide all patients seen in our emergency department with a follow-up referral. The need for follow-up, as well as the timing and circumstances, are variable depending upon the specifics of your emergency department visit. If you don't have a primary care physician on staff, we will provide you with a referral. We always advise you to contact your personal physician following an emergency department visit to inform them of the circumstance of the visit and for follow-up with them and/or the need for any referrals to a consulting specialist. The emergency department will also refer you to a specialist when appropriate. This referral assures that you have the opportunity for followup care with a specialist. All of these measure are taken in an effort to provide you with optimal care, which includes your followup. Under all circumstances we always encourage you to contact your private physician who remains a resource for coordinating your care. When calling for followup care, please make the office aware that this follow-up is from your recent emergency room visit. If for any reason you are refused follow-up, please contact the [facility] emergency department at and ask to speak to the emergency department charge nurse. [facility] Primary care- Internal Medicine and Family [address] [address] Please use the Bentyl you have been prescribed for cramping and diarrhea and push hydration. Please use [id number] [place] saline nasal spray as well as petroleum jelly to keep the nasal mucosa moist. Please call and follow-up in the clinic as we discussed in the next 1-2 days for reevaluation and further care. Return to ER as needed and as discussed. Please take the antibiotics you have been prescribed until they're finished. He will be contacted if the culture results yield any changes that are necessary in this care plan. - My Orders Last 24 Hours: My Active Orders 09/21/16 22:29 Cardiac Monitoring [RC] . DIRECTED EKG Documentation Completion [RC] STAT Oxygen Therapy, ED [RC] ASDIRECTED Pulse Oximetry [RC] ASDIRECTED Saline Lock Insert [OM.PC] Stat 09/21/16 22:30 Chest 2V [CR] Stat Sodium Chloride 0.9% [Saline Flush] 10 ml FLUSH ASDIRECTED PRN Sodium Chloride 0.9% [Saline Flush] 2.5 ml FLUSH ASDIRECTED PRN 09/21/16 22:31 Orthostatic Vital Signs [RC] ASDIRECTED 09/21/16 22:45 CULTURE URINE [RM] Stat Sodium Chloride 0.9% [Normal Saline] 500 ml IV STAT 09/21/16 23:41 cefTRIAXone [Rocephin in Dextrose,Iso-Osm 1 GM/50 ML] 1 gm Premix Bag 1 bag IV ONETIME - Assessment/Plan Last 24 Hours: My Active Orders 09/21/16 22:29 Cardiac Monitoring [RC] . DIRECTED EKG Documentation Completion [RC] STAT Oxygen Therapy, ED [RC] ASDIRECTED Pulse Oximetry [RC] ASDIRECTED Saline Lock Insert [OM.PC] Stat 09/21/16 22:30 Chest 2V [CR] Stat Sodium Chloride 0.9% [Saline Flush] 10 ml FLUSH ASDIRECTED PRN Sodium Chloride 0.9% [Saline Flush] 2.5 ml FLUSH ASDIRECTED PRN 09/21/16 22:31 Orthostatic Vital Signs [RC] ASDIRECTED 09/21/16 22:45 CULTURE URINE [RM] Stat Sodium Chloride 0.9% [Normal Saline] 500 ml IV STAT 09/21/16 23:41 cefTRIAXone [Rocephin in Dextrose,Iso-Osm 1 GM/50 ML] 1 gm Premix Bag 1 bag IV ONETIME
[2016-09-21] MEDS ORDERED: Sodium Chloride 0.9% 500 ML IV SCH (22:45)
[2016-09-21] MEDS ORDERED: Potassium Chloride 20 MEQ Tab.ER PO ONE (23:40)
[2016-09-21] MEDS ORDERED: Magnesium Oxide 400 MG Tab PO ONE (23:40)
[2016-09-21] MEDS ORDERED: cefTRIAXone 1 GM in Premix Bag 1 BAG IV ONE (23:41)
[2016-09-22 00:45] VITALS: BP 113/59
--- NOTE | 2016-09-22 10:00 | CR ---
EXAM DATE: 09/21/16 PATIENT'S AGE: 71 Patient: FOZIA YEAGER Facility: [place], [place] Site . Site : 1945 Study: XRay Chest [id number]/8/2017 11:27:45 PM Ordering Physician: Luis E Jenkins Final Report: HISTORY: Nausea vomiting and diarrhea x3 days. Cough, shortness of breath x1 day. FINDINGS: PA and lateral chest radiographs are compared to 14 Jul 2015. EKG leads overlie the thorax. There is stable cardiomegaly. Pulmonary vasculature is free cephalization. No lobar consolidation or pleural effusion is seen. Peridiscal spurring is seen within the thoracic spine. IMPRESSION: Stable cardiomegaly without CHF. Dictated by Keke Lake MD @ 09/21/2016 11:38:26 PM Dictated by: Keke Lake MD @ 09/21/2016 23:39:16 (Electronic Signature) Report Signed by Proxy. [facility] SYSTEMStacie
== END 2016-09-22 00:32 | disposition home or self-care (01) ==
LOC: MW.ED 22:22
DX: E83.42 Hypomagnesemia (principal); E87.6 Hypokalemia; R06.00 Dyspnea, unspecified; R42 Dizziness and giddiness; R19.7 Diarrhea, unspecified; N39.0 Urinary tract infection, site not specified; I13.0 Hypertensive heart and chronic kidney disease with heart failure and stage 1 through stage 4 chronic kidney disease, or unspecified chronic kidney disease; N18.3 Chronic kidney disease, stage 3 (moderate); I50.9 Heart failure, unspecified; F41.9 Anxiety disorder, unspecified; F32.9 Major depressive disorder, single episode, unspecified; E66.9 Obesity, unspecified; Z85.42 Personal history of malignant neoplasm of other parts of uterus; Z85.828 Personal history of other malignant neoplasm of skin; Z98.890 Other specified postprocedural states; Z90.710 Acquired absence of both cervix and uterus; Z96.651 Presence of right artificial knee joint; Z87.891 Personal history of nicotine dependence; Z91.09 Other allergy status, other than to drugs and biological substances; Z79.82 Long term (current) use of aspirin; Z79.899 Other long term (current) drug therapy; Z68.43 Body mass index [BMI] 50.0-59.9, adult
CPT/HCPCS: 36415; 71020; 80053; 81001; 82150; 83605; 83690; 83735; 83880; 84484; 85025; 85610; 87086; 93005; 96361; 96365; 99285; A9270; J0696; J7040; 99284

== ENCOUNTER 2016-11-02 10:31 | Emergency (ER) | payer MEDICARE, MEDICAID ==
[2016-11-02] MEDS ORDERED: Sodium Chloride 0.9% 1,000 ML IV ONE (10:55)
[2016-11-02] MEDS ORDERED: Sodium Chloride 0.9% 10 ML Syringe FLUSH PRN (10:55)
[2016-11-02] MEDS ORDERED: Sodium Chloride 0.9% 2.5 ML Syringe FLUSH PRN (10:55)
[2016-11-02] MEDS ORDERED: Ondansetron 4 MG/2 ML SDV IVPUSH ONE (10:59)
[2016-11-02] MEDS ORDERED: Dicyclomine 10 MG Cap PO ONE (11:59)
[2016-11-02] MEDS ORDERED: Ibuprofen 800 MG Tab PO ONE (12:05)
--- NOTE | 2016-11-02 12:12 | EDM.PDOC ---
ED HPI GENERAL MEDICAL PROBLEM - General Chief Complaint: Abdominal Pain Stated Complaint: FLU LIKE SYMPTOMS Time Seen by Provider: 11/02/16 10:44 Source of Information: Reports: Patient History Limitations: Reports: No Limitations - History of Present Illness INITIAL COMMENTS - FREE TEXT/NARRATIVE: History of present illness: []Patient has been complaining of one week of feeling poorly with extreme weakness and chills. 2 days ago she began having diarrhea that is watery and black. She denies any bloody emesis or bright red blood per stool. She has generalized abdominal pain. Patient was taking antibiotic and Bentyl for inflamed bowels and has run out of meds. Review of systems: As per history of present illness and below otherwise all systems reviewed and negative. Past medical history: As per history of present illness and as reviewed below otherwise noncontributory. Surgical history: As per history of present illness and as reviewed below otherwise noncontributory. Social history: No reported history of drug or alcohol abuse. Family history: As per history of present illness and as reviewed below otherwise noncontributory. Physical exam: General: Well developed, well nourished in NAD HEENT: Atraumatic, normocephalic, pupils reactive, negative for conjunctival pallor or scleral icterus, mucous membranes moist, throat clear, neck supple, nontender, trachea midline. Lungs: Clear to auscultation, breath sounds equal bilaterally, chest nontender. Heart: S1S2, regular, negative for clicks, rubs, or JVD. Abdomen: Soft, nondistended, nontender. Negative for masses or hepatosplenomegaly. Negative for costovertebral tenderness. Pelvis: Stable nontender. Genitourinary: Deferred. Rectal: Deferred. Extremities: Atraumatic, negative for cords or calf pain. Neurovascular unremarkable. Neuro: Awake, alert, oriented. Cranial nerves II through XII unremarkable. Cerebellum unremarkable. Motor and sensory unremarkable throughout. Exam nonfocal. Diagnostics: []Labs and UA checked and are normal Therapeutics: []IV hydrated dose of Bentyl given for pain vital signs stable Impression: []Diarrhea, abdominal pain Plan: []Bentyl, follow-up with PMD Definitive disposition and diagnosis as appropriate pending reevaluation and review of above. upper abdominal Pain Score (Numeric/FACES): 9 - Related Data Allergies Allergy/AdvReac Type Severity Reaction Status Date / Time Tape adhesives Allergy Blisters Uncoded 11/02/16 10:47 Home Meds: Home Meds Furosemide 40 mg PO BID 11/08/14 [History] Metoprolol Tartrate [Lopressor] 25 mg PO BID 11/08/14 [History] Nitroglycerin [Nitrostat] 0.4 mg SL ASDIRECTED PRN 11/08/14 [History] Oxybutynin Chloride 5 mg PO BID 11/08/14 [History] Pramipexole Di-HCl [Mirapex] 1 mg PO BEDTIME PRN 11/08/14 [History] Rosuvastatin [Crestor] 40 mg PO DAILY 11/08/14 [History] Valsartan 80 mg PO DAILY 11/08/14 [History] FLUoxetine [PROzac] 20 mg PO DAILY 05/22/15 [History] Multivitamin [Multi-Vitamin Daily] 1 tab PO DAILY 05/22/15 [History] Potassium Chloride 10 meq PO DAILY 05/22/15 [History] ALPRAZolam [Alprazolam] 0.5 mg PO BID PRN 08/20/15 [History] Aspirin [Children's Aspirin] 81 mg PO DAILY 08/20/15 [History] traZODone HCl [Trazodone HCl] 50 mg PO BEDTIME PRN 07/04/16 [History] Carisoprodol [Soma] 350 mg PO TID 11/02/16 [History] Celecoxib [CeleBREX] 200 mg PO DAILY 11/02/16 [History] Dicyclomine [Bentyl] 10 mg PO QID PRN #20 cap 11/02/16 [Rx] traMADol [Ultram] 50 mg pe PO BID PRN 11/02/16 [History] Past Medical History HEENT History: Reports: Cataract, Impaired Vision Other HEENT History: wears glasses, has upper dentures, loss of peripheral vision. 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 Other Genitourinary History: Stage III Kidney Disease SHINGLER History: Reports: Musculoskeletal History: Reports: Back Pain, Chronic Other Musculoskeletal History: Lot of arthritis to back, hx: fracturing Right and Left ankle, Right and Left arms, 2 toes Neurological History: Reports: None Other Neuro History: Restless Leg syndrome Psychiatric History: Reports: Anxiety, Depression Other Psychiatric History: "Some depression, but have good supports and reach out" Endocrine/Metabolic History: Reports: Obesity/BMI 30+ Other Endocrine/Metabolic History: History of Type I diabetes in dictation, she reports 'abnormal glucose' Hematologic History: Reports: None Immunologic History: Reports: None Oncologic (Cancer) History: Reports: Other (See Below) Other Oncologic History: skin cancer on nose, uterus ca, removal of stomach tumor Dermatologic History: Reports: Other (See Below) Other Dermatologic History: ABnormal cells to face - Infectious Disease History Infectious Disease History: Reports: Chicken Pox, Measles - Past Surgical History HEENT Surgical History: Reports: Cataract Surgery, Tonsillectomy, Other (See Below) Cardiovascular Surgical History: Reports: None Female Surgical History: Reports: Hysterectomy Endocrine Surgical History: Reports: None Other Endocrine Surgeries/Procedures: pt states she does not have diabetes Neurological Surgical History: Reports: Discectomy Other Neurological Surgeries/Procedures: 3 discs in back Musculoskeletal Surgical History: Reports: Knee Replacement, Other (See Below) Other Musculoskeletal Surgeries/Procedures:: right knee replacemnt, back surgery L3-L4 Oncologic Surgical History: Reports: Other (See Below) Social & Family History - Family History Family Medical History: Noncontributory Oncologic: Reports: Cervix, Lung, Other (See Below) Other Oncologic Family History: spine - Tobacco Use Smoking Status *Q: Never Smoker Years of Tobacco use: 20 Used Tobacco, but Quit: Yes Month Tobacco Last Used: April Second Hand Smoke Exposure: No - Caffeine Use Caffeine Use: Reports: Coffee, Soda - Recreational Drug Use Recreational Drug Use: No Drug Use in Last 12 Months: No ED ROS GENERAL - Review of Systems Review Of Systems: See Below (See history of present illness) ED EXAM, GENERAL - Physical Exam Exam: See Below (See history of present illness) Course - Vital Signs Last Recorded V/S: Last Vital Signs Temp 36.4 C 11/02/16 10:44 Pulse 76 11/02/16 10:44 Resp 20 11/02/16 10:44 BP 127/81 11/02/16 10:44 Pulse Ox 95 11/02/16 10:44 - Orders/Labs/Meds Orders: Active Orders 24 hr Category Date Time Status EKG Documentation Completion [RC] STAT Care 11/02/16 10:54 Active Sodium Chloride 0.9% [Saline Flush] Med 11/02/16 10:55 Active 10 ml FLUSH ASDIRECTED PRN Sodium Chloride 0.9% [Saline Flush] Med 11/02/16 10:55 Active 2.5 ml FLUSH ASDIRECTED PRN Saline Lock Insert [OM.PC] Stat Oth 11/02/16 10:54 Ordered Medication Orders Sodium Chloride (Saline Flush) 10 ml FLUSH ASDIRECTED PRN PRN Reason: Keep Vein Open Last Admin: 11/02/16 11:06 Dose: 10 ml Sodium Chloride (Saline Flush) 2.5 ml FLUSH ASDIRECTED PRN PRN Reason: Keep Vein Open Last Admin: 11/02/16 11:06 Dose: 2.5 ml Labs: Laboratory Tests 11/02/16 11/02/16 11/02/16 Range/Units 10:49 10:49 10:49 WBC 8.33 (4.0-11.0) K/uL RBC 4.78 (4.30-5.90) M/uL Hgb 13.9 (12.0-16.0) g/dL Hct 41.9 (36.0-46.0) % MCV 87.7 (80.0-98.0) fL MCH 29.1 (27.0-32.0) pg MCHC 33.2 (31.0-37.0) g/dL RDW Std Deviation 49.3 (28.0-62.0) fl RDW Coeff of Shu 15 (11.0-15.0) % Plt Count 196 (150-400) K/uL MPV 10.80 (7.40-12.00) fL Neut % (Auto) 50.6 (48.0-80.0) % Lymph % (Auto) 35.7 (16.0-40.0) % Phillips % (Auto) 10.1 (0.0-15.0) % Eos % (Auto) 3.2 (0.0-7.0) % Baso % (Auto) 0.4 (0.0-1.5) % Neut # (Auto) 4.2 (1.4-5.7) K/uL Lymph # (Auto) 3.0 H (0.6-2.4) K/uL Phillips # (Auto) 0.8 (0.0-0.8) K/uL Eos # (Auto) 0.3 (0.0-0.7) K/uL Baso # (Auto) 0.0 (0.0-0.1) K/uL Nucleated RBC % 0.0 /100WBC Nucleated RBCs # 0 K/uL Sodium 140 (136-146) mmol/L Potassium 4.0 (3.5-5.1) mmol/L Chloride 107 (98-110) mmol/L Carbon Dioxide 23 (21-31) mmol/L BUN 30 H (6.0-23.0) mg/dL Creatinine 1.1 (0.6-1.5) mg/dL Est Cr Clr Drug Dosing 39.92 mL/min Estimated GFR (MDRD) 48.8 ml/min Glucose 106 (60-110) mg/dL Calcium 9.7 (8.8-10.8) mg/dL Total Bilirubin 0.9 (0.1-1.5) mg/dL AST 14 (5-40) IU/L ALT 12 (8-54) IU/L Alkaline Phosphatase 85 (40-150) Troponin I < 0.10 (0.0-0.29) NG/ML Total Protein 7.5 (6.0-8.0) g/dL Albumin 3.8 (3.4-4.8) g/dL Globulin 3.7 H (2.0-3.5) g/dL Albumin/Globulin Ratio 1.0 L (1.3-2.8) Urine Color Urine Appearance Urine pH (5.0-8.0) Ur Specific [place] (1.001-1.035) Urine Protein (NEGATIVE) mg/dL Urine Glucose (UA) (NEGATIVE) mg/dL Urine Ketones (NEGATIVE) mg/dL Urine Occult Blood (NEGATIVE) Urine Nitrite (NEGATIVE) Urine Bilirubin (NEGATIVE) Urine Urobilinogen (<2.0) EU/dL Ur Leukocyte Esterase (NEGATIVE) Urine RBC (0-2/HPF) Urine WBC (0-5/HPF) Ur Epithelial Cells (NONE-FEW) Amorphous Sediment (NEGATIVE) Urine Bacteria (NEGATIVE) 11/02/16 Range/Units 11:22 WBC (4.0-11.0) K/uL RBC (4.30-5.90) M/uL Hgb (12.0-16.0) g/dL Hct (36.0-46.0) % MCV (80.0-98.0) fL MCH (27.0-32.0) pg MCHC (31.0-37.0) g/dL RDW Std Deviation (28.0-62.0) fl RDW Coeff of Shu (11.0-15.0) % Plt Count (150-400) K/uL MPV (7.40-12.00) fL Neut % (Auto) (48.0-80.0) % Lymph % (Auto) (16.0-40.0) % Phillips % (Auto) (0.0-15.0) % Eos % (Auto) (0.0-7.0) % Baso % (Auto) (0.0-1.5) % Neut # (Auto) (1.4-5.7) K/uL Lymph # (Auto) (0.6-2.4) K/uL Phillips # (Auto) (0.0-0.8) K/uL Eos # (Auto) (0.0-0.7) K/uL Baso # (Auto) (0.0-0.1) K/uL Nucleated RBC % /100WBC Nucleated RBCs # K/uL Sodium (136-146) mmol/L Potassium (3.5-5.1) mmol/L Chloride (98-110) mmol/L Carbon Dioxide (21-31) mmol/L BUN (6.0-23.0) mg/dL Creatinine (0.6-1.5) mg/dL Est Cr Clr Drug Dosing mL/min Estimated GFR (MDRD) ml/min Glucose (60-110) mg/dL Calcium (8.8-10.8) mg/dL Total Bilirubin (0.1-1.5) mg/dL AST (5-40) IU/L ALT (8-54) IU/L Alkaline Phosphatase (40-150) Troponin I (0.0-0.29) NG/ML Total Protein (6.0-8.0) g/dL Albumin (3.4-4.8) g/dL Globulin (2.0-3.5) g/dL Albumin/Globulin Ratio (1.3-2.8) Urine Color YELLOW Urine Appearance CLEAR Urine pH 5.5 (5.0-8.0) Ur Specific [place] 1.025 (1.001-1.035) Urine Protein NEGATIVE (NEGATIVE) mg/dL Urine Glucose (UA) NEGATIVE (NEGATIVE) mg/dL Urine Ketones NEGATIVE (NEGATIVE) mg/dL Urine Occult Blood NEGATIVE (NEGATIVE) Urine Nitrite NEGATIVE (NEGATIVE) Urine Bilirubin NEGATIVE (NEGATIVE) Urine Urobilinogen 0.2 (<2.0) EU/dL Ur Leukocyte Esterase TRACE (NEGATIVE) Urine RBC 0-1 (0-2/HPF) Urine WBC 1-2 (0-5/HPF) Ur Epithelial Cells MODERATE (NONE-FEW) Amorphous Sediment FEW (NEGATIVE) Urine Bacteria FEW (NEGATIVE) Meds: Medications Generic Name Dose Route Start Last Admin Trade Name Francisco PRN Reason Stop Dose Admin Sodium Chloride 10 ml 11/02/16 10:55 11/02/16 11:06 Saline Flush FLUSH 10 ml ASDIRECTED PRN Administration Keep Vein Open Sodium Chloride 2.5 ml 11/02/16 10:55 11/02/16 11:06 Saline Flush FLUSH 2.5 ml ASDIRECTED PRN Administration Keep Vein Open Discontinued Medications Generic Name Dose Route Start Last Admin Trade Name Francisco PRN Reason Stop Dose Admin Dicyclomine HCl 10 mg 11/02/16 11:59 Bentyl PO 11/02/16 12:00 ONETIME ONE Sodium Chloride 1,000 mls @ 999 mls/hr 11/02/16 10:55 11/02/16 11:06 Normal Saline IV 11/02/16 11:55 999 mls/hr .Bolus ONE Administration Ibuprofen 800 mg 11/02/16 12:05 Motrin PO 11/02/16 12:06 ONETIME ONE Ondansetron HCl 4 mg 11/02/16 10:59 11/02/16 11:06 Zofran IVPUSH 11/02/16 11:00 4 mg ONETIME ONE Administration Departure - Departure Time of Disposition: 12:12 Disposition: Home, Self-Care 01 Condition: Good Clinical Impression: Diarrhea Qualifiers: Diarrhea type: unspecified type Qualified Code(s): R19.7 - Diarrhea, unspecified - Discharge Information Prescriptions: Dicyclomine [Bentyl] 10 mg PO QID PRN #20 cap PRN Reason: Pain Referrals: PCP,Unknown [Primary Care Provider] - Additional Instructions: The following information is given to patients seen in the emergency department who are being discharged to home. This information is to outline your options for follow-up care. We provide all patients seen in our emergency department with a follow-up referral. The need for follow-up, as well as the timing and circumstances, are variable depending upon the specifics of your emergency department visit. If you don't have a primary care physician on staff, we will provide you with a referral. We always advise you to contact your personal physician following an emergency department visit to inform them of the circumstance of the visit and for follow-up with them and/or the need for any referrals to a consulting specialist. The emergency department will also refer you to a specialist when appropriate. This referral assures that you have the opportunity for follow-up care with a specialist. All of these measure are taken in an effort to provide you with optimal care, which includes your follow-up. Under all circumstances we always encourage you to contact your private physician who remains a resource for coordinating your care. When calling for follow-up care, please make the office aware that this follow-up is from your recent emergency room visit. If for any reason you are refused follow-up, please contact the [facility] Emergency Department at and asked to speak to the emergency department charge nurse. [facility] [address] [place] [id number] - My Orders Last 24 Hours: My Active Orders 11/02/16 10:54 EKG Documentation Completion [RC] STAT Saline Lock Insert [OM.PC] Stat 11/02/16 10:55 Sodium Chloride 0.9% [Saline Flush] 10 ml FLUSH ASDIRECTED PRN Sodium Chloride 0.9% [Saline Flush] 2.5 ml FLUSH ASDIRECTED PRN - Assessment/Plan Last 24 Hours: My Active Orders 11/02/16 10:54 EKG Documentation Completion [RC] STAT Saline Lock Insert [OM.PC] Stat 11/02/16 10:55 Sodium Chloride 0.9% [Saline Flush] 10 ml FLUSH ASDIRECTED PRN Sodium Chloride 0.9% [Saline Flush] 2.5 ml FLUSH ASDIRECTED PRN
[2016-11-02 12:20] VITALS: BP 118/59
== END 2016-11-02 12:34 | disposition home or self-care (01) ==
LOC: MW.ED 10:31
DX: R19.7 Diarrhea, unspecified (principal); I13.0 Hypertensive heart and chronic kidney disease with heart failure and stage 1 through stage 4 chronic kidney disease, or unspecified chronic kidney disease; E10.22 Type 1 diabetes mellitus with diabetic chronic kidney disease; N18.3 Chronic kidney disease, stage 3 (moderate); I50.9 Heart failure, unspecified; F32.9 Major depressive disorder, single episode, unspecified; E66.9 Obesity, unspecified; Z85.828 Personal history of other malignant neoplasm of skin; Z85.42 Personal history of malignant neoplasm of other parts of uterus; Z98.49 Cataract extraction status, unspecified eye; Z98.890 Other specified postprocedural states; Z90.710 Acquired absence of both cervix and uterus; Z96.651 Presence of right artificial knee joint; Z87.891 Personal history of nicotine dependence; Z91.048 Other nonmedicinal substance allergy status
CPT/HCPCS: 36415; 80053; 81001; 84484; 85025; 93005; 96361; 96374; 99284; A9270; J2405; J7040; 99283

== ENCOUNTER 2017-05-09 08:32 | Emergency (ER) | payer MEDICARE, MEDICAID ==
--- NOTE | 2017-05-09 08:35 | EDM.PDOC ---
ED HPI GENERAL MEDICAL PROBLEM - General Chief Complaint: General Stated Complaint: FALL Time Seen by Provider: 05/09/17 08:35 Source of Information: Reports: Patient - History of Present Illness INITIAL COMMENTS - FREE TEXT/NARRATIVE: HISTORY AND PHYSICAL: History of present illness: []Patient presents via EMS after a fall in her home 72-year-old female who after taking a shower this morning was walking into her kitchen/living room area she slipped falling and striking the back of her head on a footstool, she also complains of several other painful joints including left shoulder and right knee. Pain is 4 out of 10 nonradiating to the joints 1 out of 10 headache patient states she really doesn't know what happened outside of that she fell and hit her head. Later after imaging she began to complain of low back pain 4 out of 10 nonradiating over lumbar spine No fever nausea vomiting diarrhea constipation chest pain shortness breath dizziness or palpitation no bowel or urine symptoms headache has improved/ resolved Review of systems: As per history of present illness and below otherwise all systems reviewed and negative. Past medical history: As per history of present illness and as reviewed below otherwise noncontributory. Surgical history: As per history of present illness and as reviewed below otherwise noncontributory. Social history: No reported history of drug or alcohol abuse. Family history: As per history of present illness and as reviewed below otherwise noncontributory. Physical exam: HEENT: Atraumatic, normocephalic, pupils reactive, negative for conjunctival pallor or scleral icterus, mucous membranes moist, throat clear, neck supple, nontender, trachea midline. Lungs: Clear to auscultation, breath sounds equal bilaterally, chest nontender. Heart: S1S2, regular, negative for clicks, rubs, or JVD. Abdomen: Soft, nondistended, nontender. Negative for masses or hepatosplenomegaly. Negative for costovertebral tenderness. Pelvis: Stable nontender. Genitourinary: Deferred. Rectal: Deferred. Extremities: Atraumatic, negative for cords or calf pain. Neurovascular unremarkable. Neuro: Awake, alert, oriented. Cranial nerves II through XII unremarkable. Cerebellum unremarkable. Motor and sensory unremarkable throughout. Exam nonfocal. Skin no bruising or open lesion Diagnostics: [CBC CMP UA troponin EKG Chest 1 view Pelvis 1 view Left shoulder Right knee ]Lumbar spine plain films--patient refused imaging Therapeutics: [Ibuprofen 400 mg by mouth Patient was able to get up and get to the bathroom on her own without difficulty , patient will be discharged in stable condition negative findings ] Impression: [fall in home] Contusion left shoulder/right knee Chronic history baseline Definitive disposition and diagnosis as appropriate pending reevaluation and review of above. Right Knee Pain Score (Numeric/FACES): 9 Middle Back Pain Score (Numeric/FACES): 9 Left Shoulder Pain Score (Numeric/FACES): 9 - Related Data Allergies Allergy/AdvReac Type Severity Reaction Status Date / Time Tape adhesives Allergy Blisters Uncoded 11/02/16 10:47 Home Meds: Home Meds Furosemide 40 mg PO BID 11/08/14 [History] Metoprolol Tartrate [Lopressor] 25 mg PO BID 11/08/14 [History] Nitroglycerin [Nitrostat] 0.4 mg SL ASDIRECTED PRN 11/08/14 [History] Oxybutynin Chloride 5 mg PO BID 11/08/14 [History] Pramipexole Di-HCl [Mirapex] 1 mg PO BEDTIME PRN 11/08/14 [History] Rosuvastatin [Crestor] 40 mg PO DAILY 11/08/14 [History] Valsartan 80 mg PO DAILY 11/08/14 [History] FLUoxetine [PROzac] 20 mg PO DAILY 05/22/15 [History] Multivitamin [Multi-Vitamin Daily] 1 tab PO DAILY 05/22/15 [History] Potassium Chloride 10 meq PO DAILY 05/22/15 [History] ALPRAZolam [Alprazolam] 0.5 mg PO BID PRN 08/20/15 [History] Aspirin [Children's Aspirin] 81 mg PO DAILY 08/20/15 [History] traZODone HCl [Trazodone HCl] 50 mg PO BEDTIME PRN 07/04/16 [History] Dicyclomine [Bentyl] 10 mg PO QID PRN #20 cap 11/02/16 [Rx] Hydrocodone/Acetaminophen [Hydrocodon-Acetaminophen 5-325] 5 - 325 mg Q6H [History] Past Medical History HEENT History: Reports: Cataract, Impaired Vision Other HEENT History: wears glasses, has upper dentures, loss of peripheral vision. 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 Other Genitourinary History: Stage III Kidney Disease [employer] History: Reports: Musculoskeletal History: Reports: Back Pain, Chronic Other Musculoskeletal History: Lot of arthritis to back, hx: fracturing Right and Left ankle, Right and Left arms, 2 toes Neurological History: Reports: None Other Neuro History: Restless Leg syndrome Psychiatric History: Reports: Anxiety, Depression Other Psychiatric History: "Some depression, but have good supports and reach out" Endocrine/Metabolic History: Reports: Obesity/BMI 30+ Other Endocrine/Metabolic History: History of Type I diabetes in dictation, she reports 'abnormal glucose' Hematologic History: Reports: None Immunologic History: Reports: None Oncologic (Cancer) History: Reports: Other (See Below) Other Oncologic History: skin cancer on nose, uterus ca, removal of stomach tumor Dermatologic History: Reports: Other (See Below) Other Dermatologic History: ABnormal cells to face - Infectious Disease History Infectious Disease History: Reports: Chicken Pox, Measles - Past Surgical History HEENT Surgical History: Reports: Cataract Surgery, Tonsillectomy, Other (See Below) Cardiovascular Surgical History: Reports: None Female Surgical History: Reports: Hysterectomy Endocrine Surgical History: Reports: None Other Endocrine Surgeries/Procedures: pt states she does not have diabetes Neurological Surgical History: Reports: Discectomy Other Neurological Surgeries/Procedures: 3 discs in back Musculoskeletal Surgical History: Reports: Knee Replacement, Other (See Below) Other Musculoskeletal Surgeries/Procedures:: right knee replacemnt, back surgery L3-L4 Oncologic Surgical History: Reports: Other (See Below) Social & Family History - Family History Family Medical History: Noncontributory Oncologic: Reports: Cervix, Lung, Other (See Below) Other Oncologic Family History: spine - Tobacco Use Smoking Status *Q: Never Smoker Years of Tobacco use: 20 Used Tobacco, but Quit: Yes Month/Year Tobacco Last Used: April Second Hand Smoke Exposure: No - Caffeine Use Caffeine Use: Reports: Coffee, Soda - Recreational Drug Use Recreational Drug Use: No Drug Use in Last 12 Months: No ED ROS GENERAL - Review of Systems Review Of Systems: ROS reveals no pertinent complaints other than HPI. ED EXAM, GENERAL - Physical Exam Exam: See Below Course - Vital Signs Last Recorded V/S: Last Vital Signs Temp 97.6 F 05/09/17 08:34 Pulse 72 05/09/17 08:34 Resp 18 05/09/17 08:34 BP 133/51 L 05/09/17 08:34 Pulse Ox 96 05/09/17 08:34 - Orders/Labs/Meds Orders: Active Orders 24 hr Category Date Time Status EKG 12 Lead [EKG Documentation Completion] [RC] AM Care 05/09/17 08:47 Active Labs: Laboratory Tests 05/09/17 05/09/17 05/09/17 Range/Units 08:47 09:00 09:00 WBC 8.07 (4.0-11.0) K/uL RBC 4.56 (4.30-5.90) M/uL Hgb 12.9 (12.0-16.0) g/dL Hct 39.3 (36.0-46.0) % MCV 86.2 (80.0-98.0) fL MCH 28.3 (27.0-32.0) pg MCHC 32.8 (31.0-37.0) g/dL RDW Std Deviation 52.0 (28.0-62.0) fl RDW Coeff of Shu 17 H (11.0-15.0) % Plt Count 180 (150-400) K/uL MPV 10.40 (7.40-12.00) fL Neut % (Auto) 54.3 (48.0-80.0) % Lymph % (Auto) 32.1 (16.0-40.0) % [place] % (Auto) 8.3 (0.0-15.0) % Eos % (Auto) 4.8 (0.0-7.0) % Baso % (Auto) 0.5 (0.0-1.5) % Neut # (Auto) 4.4 (1.4-5.7) K/uL Lymph # (Auto) 2.6 H (0.6-2.4) K/uL [place] # (Auto) 0.7 (0.0-0.8) K/uL Eos # (Auto) 0.4 (0.0-0.7) K/uL Baso # (Auto) 0.0 (0.0-0.1) K/uL Nucleated RBC % 0.0 /100WBC Nucleated RBCs # 0 K/uL Sodium 144 (136-145) mmol/L Potassium 4.5 (3.5-5.1) mmol/L Chloride 109 H (98-107) mmol/L Carbon Dioxide 26.8 (21.0-32.0) mmol/L BUN 26 H (7.0-18.0) mg/dL Creatinine 1.1 H (0.6-1.0) mg/dL Est Cr Clr Drug Dosing 39.33 mL/min Estimated GFR (MDRD) 48.7 ml/min Glucose 103 (74-106) mg/dL Calcium 9.4 (8.5-10.1) mg/dL Total Bilirubin 0.5 (0.2-1.0) mg/dL AST 15 (15-37) IU/L ALT 15 (14-63) IU/L Alkaline Phosphatase 74 (46-116) U/L Troponin I < 0.050 (0.000-0.056) ng/mL Total Protein 6.9 (6.4-8.2) g/dL Albumin 3.1 L (3.4-5.0) g/dL Globulin 3.8 H (2.0-3.5) g/dL Albumin/Globulin Ratio 0.8 L (1.3-2.8) Urine Color YELLOW Urine Appearance CLEAR Urine pH 6.0 (5.0-8.0) Ur Specific [place] <= 1.005 (1.001-1.035) Urine Protein NEGATIVE (NEGATIVE) mg/dL Urine Glucose (UA) NEGATIVE (NEGATIVE) mg/dL Urine Ketones NEGATIVE (NEGATIVE) mg/dL Urine Occult Blood NEGATIVE (NEGATIVE) Urine Nitrite NEGATIVE (NEGATIVE) Urine Bilirubin NEGATIVE (NEGATIVE) Urine Urobilinogen 0.2 (<2.0) EU/dL Ur Leukocyte Esterase NEGATIVE (NEGATIVE) Urine RBC 0-1 (0-2/HPF) Urine WBC 0-1 (0-5/HPF) Ur Epithelial Cells OCCASIONAL (NONE-FEW) Urine Bacteria RARE (NEGATIVE) Meds: Medications Discontinued Medications Generic Name Dose Route Start Last Admin Trade Name Freq PRN Reason Stop Dose Admin Ibuprofen 400 mg 03/26/18 12:08 05/09/17 12:17 Motrin PO 05/09/17 12:09 400 mg ONETIME ONE Administration Departure - Departure Time of Disposition: 12:42 Disposition: Home, Self-Care 01 Condition: Good Clinical Impression: Fall at home, Contusion - Discharge Information Referrals: Tavon Fregoso MD [Primary Care Provider] - Forms: ED Department Discharge Additional Instructions: Continue home medications as directed Return if symptoms persist or worsen or new concerning symptoms develop Follow-up with primary care in 2 weeks sooner as needed [facility] - Primary [facility] [address] [place] [id number] [address] The following information is given to patients seen in the emergency department who are being discharged to home. This information is to outline your options for follow-up care. We provide all patients seen in our emergency department with a follow-up referral. The need for follow-up, as well as the timing and circumstances, are variable depending upon the specifics of your emergency department visit. If you don't have a primary care physician on staff, we will provide you with a referral. We always advise you to contact your personal physician following an emergency department visit to inform them of the circumstance of the visit and for follow-up with them and/or the need for any referrals to a consulting specialist. The emergency department will also refer you to a specialist when appropriate. This referral assures that you have the opportunity for follow-up care with a specialist. All of these measure are taken in an effort to provide you with optimal care, which includes your follow-up. Under all circumstances we always encourage you to contact your private physician who remains a resource for coordinating your care. When calling for follow-up care, please make the office aware that this follow-up is from your recent emergency room visit. If for any reason you are refused follow-up, please contact the [facility] emergency department at and asked to speak to the emergency department charge nurse. - My Orders Last 24 Hours: My Active Orders 05/09/17 08:47 EKG 12 Lead [EKG Documentation Completion] [RC] AM - Assessment/Plan Last 24 Hours: My Active Orders 05/09/17 08:47 EKG 12 Lead [EKG Documentation Completion] [RC] AM
[2017-05-09 10:29] LABS: CHLORIDE,CL 109 mmol/L (98-107); SODIUM,NA 144 mmol/L (136-145)
--- NOTE | 2017-05-09 10:53 | CT ---
EXAMINATION: Non contrast CT head. Coronal and sagittal reformats. HISTORY: Pain FINDINGS: No evidence of intra or extra axial hemorrhage, mass, midline shift, hydrocephalus or edema. No hypoattenuation changes in the major vascular territories to suggest acute infarct. No abnormal intracranial calcifications are detected. No evidence of substantial vascular calcificat ions. Paranasal sinuses and mastoid air cells are well aerated without substantial findings. Orbits and gl obes are symmetric. Pituitary fossa appears unremarkable. Calvarium is intact. No evidence of skull fracture. IMPRESSION: No acute intracranial findings.
--- NOTE | 2017-05-09 10:54 | CT ---
EXAMINATION: CT cervical spine HISTORY: Pain COMPARISON: None TECHNIQUE: Axial CT images obtained through the cervical spine without contrast. Coronal and sagittal reconstructions obtained. FINDINGS: The cervical spinal alignment is normal. Vertebral body heights appear maintained. Osseous structures appear osteopenic. Minimal marginal osteophytes are noted. Temporomandibular joints are sy mmetric. The prevertebral soft tissues are grossly unremarkable. Lung apices are grossly clear. IMPRESSION: 1. No acute cervical spinal abnormality. 2. Generalized osteopenia.
--- NOTE | 2017-05-09 10:58 | CR ---
EXAMINATION: Right knee HISTORY: Fall COMPARISON: 04/05/2016 TECHNIQUE: 2 views FINDINGS/IMPRESSION: Right total knee hardware demonstrated in stable position and alignment. No frac ture or acute osseous abnormality identified. No joint effusion or soft tissue swelling.
--- NOTE | 2017-05-09 10:59 | CR ---
EXAMINATION: Left shoulder HISTORY: Pain COMPARISON: None TECHNIQUE: 3 views FINDINGS: There is no acute osseous abnormality, dislocation, or fracture. Osseous structures are ost eopenic. Mild acromioclavicular osteoarthritic changes are noted. Glenohumeral joint space is preserv ed. IMPRESSION: 1. No acute osseous abnormality identified. 2. Generalized osteopenia.
[2017-05-09] MEDS ORDERED: Ibuprofen 400 MG Tab PO ONE (12:08)
[2017-05-09 13:36] VITALS: BP 140/54
== END 2017-05-09 13:00 | disposition home or self-care (01) ==
LOC: MW.ED 08:32
DX: S80.01XA Contusion of right knee, initial encounter (principal); S40.012A Contusion of left shoulder, initial encounter; N18.3 Chronic kidney disease, stage 3 (moderate); I12.9 Hypertensive chronic kidney disease with stage 1 through stage 4 chronic kidney disease, or unspecified chronic kidney disease; E10.22 Type 1 diabetes mellitus with diabetic chronic kidney disease; W01.198A Fall on same level from slipping, tripping and stumbling with subsequent striking against other object, initial encounter; Y93.01 Activity, walking, marching and hiking; Y92.000 Kitchen of unspecified non-institutional (private) residence as the place of occurrence of the external cause; Z79.899 Other long term (current) drug therapy; Z91.048 Other nonmedicinal substance allergy status
CPT/HCPCS: 36415; 70450; 72125; 73030; 73560; 80053; 81001; 84484; 85025; 93005; 99285; A9270; 99283

== ENCOUNTER 2017-08-27 22:14 | Emergency (ER) | payer MEDICARE, MEDICAID ==
--- NOTE | 2017-08-27 22:34 | EDM.PDOC ---
ED HPI GENERAL MEDICAL PROBLEM - General Chief Complaint: Lower Extremity Injury/Pain Stated Complaint: FALL Time Seen by Provider: 08/27/17 22:22 - History of Present Illness INITIAL COMMENTS - FREE TEXT/NARRATIVE: HISTORY AND PHYSICAL: History of present illness: The patient is a 72-year-old female with a history of hypertension obstructive sleep apnea dependent edema/CHF morbid obesity and chronic renal disease stage III who presents via EMS after she was getting out of her chair and her right leg gave out and she fell with it angled toward and landed on her butt. She did gently hit her head but did not pass out or black out and has no head neck or upper back pain and complains only of pain at her tailbone and her right knee area. Patient has a history of a total knee replacement on the right 2 years ago and says that since that time she has had repeated events of her leg giving out on the right and her falling infection had one for which she was seen here in April and she had one a few weeks ago that she was seen elsewhere. The patient does live alone with her cat and says that she is interested in getting some kind of a brace for her knee because this is been happening since her surgery but she has not been able to find one. She otherwise was in her usual state of good health prior to these events. She does admit to me that she spends a lot of time in her chair. She has a history of dependent edema which is not new or different today. He has no chest pain rib pain upper extremity complaints left leg complaints of upper back pain abdominal pain nausea or vomiting. Review of systems: As per history of present illness and below otherwise all systems reviewed and negative. Past medical history: As per history of present illness and as reviewed below otherwise noncontributory. Surgical history: As per history of present illness and as reviewed below otherwise noncontributory. Social history: No reported history of drug or alcohol abuse. Family history: As per history of present illness and as reviewed below otherwise noncontributory. Physical exam: General: Well-developed well-nourished morbidly obese female who is nontoxic and speaks clearly and easily in the ED. Vital signs are noted by me HEENT: Atraumatic, normocephalic, pupils reactive, negative for conjunctival pallor or scleral icterus, mucous membranes moist, throat clear, neck supple, nontender, trachea midline. She has no midline step-offs tenderness defects of the cervical spine Lungs: Clear to auscultation, breath sounds equal bilaterally, chest nontender. Heart: S1S2, regular rate and rhythm no overt murmurs Abdomen: Soft, nondistended, nontender. NABS Pelvis: Stable nontender. No lateral hip tenderness especially on the right Genitourinary: Deferred. Rectal: Deferred. Extremities: Atraumatic appearing with full range of motion without defects or deficits but the exam of the right knee is difficult due to her morbid obesity but there seems to be symmetry right versus left. There is no evidence of ecchymosis erythema or gross soft tissue swelling and no palpable bony deformities appreciated. The patient has tenderness just distal to her knee and just proximal to her knee. The legs are, negative for cords or calf pain. Neurovascular unremarkable. Neuro: Awake, alert, oriented. Cranial nerves II through XII unremarkable. Cerebellum unremarkable. Motor and sensory unremarkable throughout. Exam nonfocal. Back: There are no midline step-offs in his defects of the thoracic or lumbar spine no posterior rib or posterior pelvis tenderness, but there is tenderness at palpation of the sacrum in the lower aspect and the coccyx. There is an abundant amount of soft tissue in this region but none of which is ecchymotic or erythematous. Diagnostics: X-rays of sacrum and coccyx, pelvis, right femur and right tib-fib Therapeutics: Ice pack, tylenol Impression: Simple fall with history of same, right knee/leg contusion, coccyx contusion Definitive disposition and diagnosis as appropriate pending reevaluation and review of above. Right Knee Pain Score (Numeric/FACES): 10 lower back Pain Score (Numeric/FACES): 10 - Related Data Allergies Allergy/AdvReac Type Severity Reaction Status Date / Time Tape adhesives Allergy Blisters Uncoded 08/27/17 22:33 Home Meds: Home Meds Furosemide 40 mg PO BID 11/08/14 [History] Metoprolol Tartrate [Lopressor] 25 mg PO BID 11/08/14 [History] Nitroglycerin [Nitrostat] 0.4 mg SL ASDIRECTED PRN 11/08/14 [History] Oxybutynin Chloride 5 mg PO BID 11/08/14 [History] Pramipexole Di-HCl [Mirapex] 1 mg PO BEDTIME PRN 11/08/14 [History] Rosuvastatin [Crestor] 40 mg PO DAILY 11/08/14 [History] Valsartan 80 mg PO DAILY 11/08/14 [History] FLUoxetine [PROzac] 20 mg PO DAILY 05/22/15 [History] Multivitamin [Multi-Vitamin Daily] 1 tab PO DAILY 05/22/15 [History] Potassium Chloride 10 meq PO DAILY 05/22/15 [History] ALPRAZolam [Alprazolam] 0.5 mg PO BID PRN 08/20/15 [History] Aspirin [Children's Aspirin] 81 mg PO DAILY 08/20/15 [History] traZODone HCl [Trazodone HCl] 50 mg PO BEDTIME PRN 07/04/16 [History] Dicyclomine [Bentyl] 10 mg PO QID PRN #20 cap 11/02/16 [Rx] Hydrocodone/Acetaminophen [Hydrocodon-Acetaminophen 5-325] 5 - 325 mg Q6H [History] Past Medical History HEENT History: Reports: Cataract, Impaired Vision Other HEENT History: wears glasses, has upper dentures, loss of peripheral vision. 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 Other Genitourinary History: Stage III Kidney Disease [employer] History: Reports: Musculoskeletal History: Reports: Back Pain, Chronic Other Musculoskeletal History: Lot of arthritis to back, hx: fracturing Right and Left ankle, Right and Left arms, 2 toes Neurological History: Reports: None Other Neuro History: Restless Leg syndrome Psychiatric History: Reports: Anxiety, Depression Other Psychiatric History: "Some depression, but have good supports and reach out" Endocrine/Metabolic History: Reports: Obesity/BMI 30+ Other Endocrine/Metabolic History: History of Type I diabetes in dictation, she reports 'abnormal glucose' Hematologic History: Reports: None Immunologic History: Reports: None Oncologic (Cancer) History: Reports: Other (See Below) Other Oncologic History: skin cancer on nose, uterus ca, removal of stomach tumor Dermatologic History: Reports: Other (See Below) Other Dermatologic History: ABnormal cells to face - Infectious Disease History Infectious Disease History: Reports: Chicken Pox, Measles - Past Surgical History HEENT Surgical History: Reports: Cataract Surgery, Tonsillectomy, Other (See Below) Cardiovascular Surgical History: Reports: None Female Surgical History: Reports: Hysterectomy Endocrine Surgical History: Reports: None Other Endocrine Surgeries/Procedures: pt states she does not have diabetes Neurological Surgical History: Reports: Discectomy Other Neurological Surgeries/Procedures: 3 discs in back Musculoskeletal Surgical History: Reports: Knee Replacement, Other (See Below) Other Musculoskeletal Surgeries/Procedures:: right knee replacemnt, back surgery L3-L4 Oncologic Surgical History: Reports: Other (See Below) Social & Family History - Family History Family Medical History: Noncontributory Oncologic: Reports: Cervix, Lung, Other (See Below) Other Oncologic Family History: spine - Caffeine Use Caffeine Use: Reports: Coffee, Soda Review of Systems - Review of Systems Review Of Systems: ROS reveals no pertinent complaints other than HPI. ED EXAM, GENERAL - Physical Exam Exam: See Below (see dictation) Course - Vital Signs Last Recorded V/S: Last Vital Signs Temp 36.5 C 08/27/17 22:23 Pulse 98 08/27/17 23:55 Resp 18 08/27/17 23:55 BP 138/42 L 08/27/17 23:55 Pulse Ox 98 08/27/17 23:55 - Orders/Labs/Meds Orders: Active Orders 24 hr Category Date Time Status Femur Min 2V Rt [CR] Stat Exams 08/27/17 22:29 Taken Pelvis 1V or 2V [CR] Stat Exams 08/27/17 22:29 Taken Sacrum Coccyx Min 2V [CR] Stat Exams 08/27/17 22:29 Taken Tibia Fibula Rt [CR] Stat Exams 08/27/17 22:29 Taken Meds: Medications Discontinued Medications Generic Name Dose Route Start Last Admin Trade Name Freq PRN Reason Stop Dose Admin Acetaminophen 650 mg 08/27/17 22:52 08/27/17 23:47 Tylenol PO 08/27/17 22:53 650 mg NOW ONE Administration Departure - Departure Time of Disposition: 00:11 Disposition: Home, Self-Care 01 Condition: Good Clinical Impression: Fall, Pain of right lower extremity - Discharge Information Referrals: PCP,None [Primary Care Provider] - Forms: ED Department Discharge Additional Instructions: The following information is given to patients seen in the emergency department who are being discharged to home. This information is to outline your options for follow-up care. We provide all patients seen in our emergency department with a follow-up referral. The need for follow-up, as well as the timing and circumstances, are variable depending upon the specifics of your emergency department visit. If you don't have a primary care physician on staff, we will provide you with a referral. We always advise you to contact your personal physician following an emergency department visit to inform them of the circumstance of the visit and for follow-up with them and/or the need for any referrals to a consulting specialist. The emergency department will also refer you to a specialist when appropriate. This referral assures that you have the opportunity for followup care with a specialist. All of these measure are taken in an effort to provide you with optimal care, which includes your followup. Under all circumstances we always encourage you to contact your private physician who remains a resource for coordinating your care. When calling for followup care, please make the office aware that this follow-up is from your recent emergency room visit. If for any reason you are refused follow-up, please contact the [facility] emergency department at and ask to speak to the emergency department charge nurse. [facility] Specialty Care--Orthopedic clinic Professional Building [address] [place] [id number] [facility] Primary care- Internal Medicine and Family [facility] [address] [place] [id number] Ice to areas of discomfort and use [id number] meds such as Tylenol. Please call and follow-up with your provider in the clinic and or our orthopedics clinic for further care and evaluation. Return to ER as needed and as discussed - My Orders Last 24 Hours: My Active Orders 08/27/17 22:29 Femur Min 2V Rt [CR] Stat Pelvis 1V or 2V [CR] Stat Sacrum Coccyx Min 2V [CR] Stat Tibia Fibula Rt [CR] Stat - Assessment/Plan Last 24 Hours: My Active Orders 08/27/17 22:29 Femur Min 2V Rt [CR] Stat Pelvis 1V or 2V [CR] Stat Sacrum Coccyx Min 2V [CR] Stat Tibia Fibula Rt [CR] Stat
[2017-08-27] MEDS ORDERED: Acetaminophen 325 MG Tab PO ONE (22:52)
[2017-08-28 01:23] VITALS: BP 131/67
--- NOTE | 2017-08-29 17:03 | CR ---
EXAM DATE: 08/27/17 PATIENT'S AGE: 72 Patient: FOZIA YEAGER Facility: [place], [place] Site . Site : 1945 Study: XRay Pelvis [id number]/14/2018 11:44:47 PM Ordering Physician: Luis E Jenkins Final Report: Indication: Injury and pain Technique: Pelvis 1 views Comparison: None Findings: Bones: Alignment is normal. No fractures or bone lesions. Joint spaces: Unremarkable. Soft tissues: Unremarkable. Impression: No sign of acute injury. Dictated by Macario Chatman MD @ Aug 27 2017 11:47PM (Electronic Signature) Report Signed by Proxy. KATELYNN
--- NOTE | 2017-08-29 17:04 | CR ---
EXAM DATE: 08/27/17 PATIENT'S AGE: 72 Patient: FOZIA YEAGER Facility: [place], [place] Site . Site : 1945 Study: XRay Pelvis sacrum/coccyx [id number]/14/2018 11:45:36 PM Ordering Physician: Luis E Jenkins Final Report: Indication: Injury and pain Technique: Sacrum and coccyx 3 views Comparison: None Findings: Bones: The sacrum and coccyx are poorly visualized on the lateral image. Alignment otherwise appears normal. No fractures or bone lesions. Joint spaces: Unremarkable. Soft tissues: Unremarkable. Impression: No sign of acute injury. However, the exam is limited in that the sacrum and coccyx are poorly visualized on the lateral image. Dictated by Macario Chatman MD @ Aug 27 2017 11:48PM (Electronic Signature) Report Signed by Proxy. KATELYNN
--- NOTE | 2017-08-29 17:05 | CR ---
EXAM DATE: 08/27/17 PATIENT'S AGE: 72 Patient: FOZIA YEAGER Facility: [place], [place] Site . Site : 1945 Study: XRay Extremity Right tib/fib [id number]/14/2018 11:46:10 PM Ordering Physician: Luis E Jenkins Final Report: Indication: Injury and pain Technique: Right tibia and fibula 4 views Comparison: None Findings: Bones: Alignment is normal. No fractures or bone lesions. Joint spaces: Unremarkable. Soft tissues: Unremarkable. Impression: No sign of acute injury. Dictated by Macario Chatman MD @ Aug 27 2017 11:50PM (Electronic Signature) Report Signed by Proxy. KATELYNN
--- NOTE | 2017-08-29 17:06 | CR ---
EXAM DATE: 08/27/17 PATIENT'S AGE: 72 Patient: FOZIA YEAGER Facility: [place], [place] Site . Site : 1945 Study: XRay Extremity Right femur [id number]/14/2018 11:47:20 PM Ordering Physician: Luis E Jenkins Final Report: Indication: Injury and pain Technique: Right femur 4 views Comparison: None Findings: Bones: Alignment is normal. No fractures or bone lesions. Joint spaces: Left hip arthroplasty appears unremarkable. Minimal degenerative changes are present in the hip joint. Soft tissues: Unremarkable. Impression: No sign of acute injury. Dictated by Macario Chatman MD @ Aug 27 2017 11:52PM (Electronic Signature) Report Signed by Proxy. KATELYNN
== END 2017-08-28 01:38 | disposition home or self-care (01) ==
LOC: MW.ED 22:14
DX: S80.01XA Contusion of right knee, initial encounter (principal); S30.0XXA Contusion of lower back and pelvis, initial encounter; I13.0 Hypertensive heart and chronic kidney disease with heart failure and stage 1 through stage 4 chronic kidney disease, or unspecified chronic kidney disease; I50.9 Heart failure, unspecified; N18.3 Chronic kidney disease, stage 3 (moderate); E10.22 Type 1 diabetes mellitus with diabetic chronic kidney disease; E66.8 Other obesity; Z96.651 Presence of right artificial knee joint; Z79.82 Long term (current) use of aspirin; Z79.899 Other long term (current) drug therapy; Z68.30 Body mass index [BMI] 30.0-30.9, adult; W01.10XA Fall on same level from slipping, tripping and stumbling with subsequent striking against unspecified object, initial encounter
CPT/HCPCS: 72170; 72220; 73552; 73590; 99284; A9270; 99283

== ENCOUNTER 2018-05-12 19:13 | Emergency (ER) | payer MEDICARE, MEDICAID ==
--- NOTE | 2018-05-12 19:31 | EDM.PDOC ---
ED HPI GENERAL MEDICAL PROBLEM - General Chief Complaint: Lower Extremity Injury/Pain Stated Complaint: PAIN IN RIGHT FOOT Time Seen by Provider: 05/12/18 19:28 - History of Present Illness INITIAL COMMENTS - FREE TEXT/NARRATIVE: HISTORY AND PHYSICAL: History of present illness: Patient 73-year-old female with history of morbid obesity multiple other medical problems presents with a concern of pain on the plantar surface of her right foot there is was no reported trauma no fever no chills no other complaints Review of systems: As per history of present illness and below otherwise all systems reviewed and negative. Past medical history: As per history of present illness and as reviewed below otherwise noncontributory. Surgical history: As per history of present illness and as reviewed below otherwise noncontributory. Social history: No reported history of drug or alcohol abuse. Family history: As per history of present illness and as reviewed below otherwise noncontributory. Physical exam: HEENT: Atraumatic, normocephalic, pupils reactive, negative for conjunctival pallor or scleral icterus, mucous membranes moist, throat clear, neck supple, nontender, trachea midline. Lungs: Clear to auscultation, breath sounds equal bilaterally, chest nontender. Heart: S1S2, regular, negative for clicks, rubs, or JVD. Abdomen: Soft, nondistended, nontender. Negative for masses or hepatosplenomegaly. Negative for costovertebral tenderness. Pelvis: Stable nontender. Genitourinary: Deferred. Rectal: Deferred. Extremities: Right foot is tenderness in the plantar arch there is no significant erythema neurovascular exam is unremarkable no bony tenderness Neuro: Awake, alert, oriented. Cranial nerves II through XII unremarkable. Cerebellum unremarkable. Motor and sensory unremarkable throughout. Exam nonfocal. Diagnostics: X-ray right foot Therapeutics: None Impression: #1 right foot pain rule out plantar fasciitis Definitive disposition and diagnosis as appropriate pending reevaluation and review of above. - Related Data Allergies Allergy/AdvReac Type Severity Reaction Status Date / Time Tape adhesives Allergy Blisters Uncoded 08/27/17 22:33 Home Meds: Home Meds Furosemide 40 mg PO BID 11/08/14 [History] Metoprolol Tartrate [Lopressor] 25 mg PO BID 11/08/14 [History] Nitroglycerin [Nitrostat] 0.4 mg SL ASDIRECTED PRN 11/08/14 [History] Oxybutynin Chloride 5 mg PO BID 11/08/14 [History] Pramipexole Di-HCl [Mirapex] 1 mg PO BEDTIME PRN 11/08/14 [History] Rosuvastatin [Crestor] 40 mg PO DAILY 11/08/14 [History] Valsartan 80 mg PO DAILY 11/08/14 [History] FLUoxetine [PROzac] 20 mg PO DAILY 05/22/15 [History] Multivitamin [Multi-Vitamin Daily] 1 tab PO DAILY 05/22/15 [History] Potassium Chloride 10 meq PO DAILY 05/22/15 [History] ALPRAZolam [Alprazolam] 0.5 mg PO BID PRN 08/20/15 [History] Aspirin [Children's Aspirin] 81 mg PO DAILY 08/20/15 [History] traZODone HCl [Trazodone HCl] 50 mg PO BEDTIME PRN 07/04/16 [History] Dicyclomine [Bentyl] 10 mg PO QID PRN #20 cap 11/02/16 [Rx] Hydrocodone/Acetaminophen [Hydrocodon-Acetaminophen 5-325] 5 - 325 mg Q6H [History] Past Medical History HEENT History: Reports: Cataract, Impaired Vision Other HEENT History: wears glasses, has upper dentures, loss of peripheral vision. 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: Musculoskeletal History: Reports: Back Pain, Chronic Other Musculoskeletal History: Lot of arthritis to back, hx: fracturing Right and Left ankle, Right and Left arms, 2 toes Neurological History: Reports: None Other Neuro History: Restless Leg syndrome Psychiatric History: Reports: Anxiety, Depression Other Psychiatric History: "Some depression, but have good supports and reach out" Endocrine/Metabolic History: Reports: Obesity/BMI 30+ Other Endocrine/Metabolic History: History of Type I diabetes in dictation, she reports 'abnormal glucose' Hematologic History: Reports: None Immunologic History: Reports: None Oncologic (Cancer) History: Reports: Other (See Below) Other Oncologic History: skin cancer on nose, uterus ca, removal of stomach tumor Dermatologic History: Reports: Other (See Below) Other Dermatologic History: ABnormal cells to face - Infectious Disease History Infectious Disease History: Reports: Chicken Pox, Measles - Past Surgical History HEENT Surgical History: Reports: Cataract Surgery, Tonsillectomy, Other (See Below) Cardiovascular Surgical History: Reports: None Female Surgical History: Reports: Hysterectomy Endocrine Surgical History: Reports: None Other Endocrine Surgeries/Procedures: pt states she does not have diabetes Neurological Surgical History: Reports: Discectomy Other Neurological Surgeries/Procedures: 3 discs in back Musculoskeletal Surgical History: Reports: Knee Replacement, Other (See Below) Other Musculoskeletal Surgeries/Procedures:: right knee replacemnt, back surgery L3-L4 Oncologic Surgical History: Reports: Other (See Below) Social & Family History - Family History Family Medical History: Noncontributory Oncologic: Reports: Cervix, Lung, Other (See Below) Other Oncologic Family History: spine - Caffeine Use Caffeine Use: Reports: Coffee, Soda Review of Systems - Review of Systems Review Of Systems: ROS reveals no pertinent complaints other than HPI. ED EXAM, GENERAL - Physical Exam Exam: See Below (See dictation) Departure - Departure Time of Disposition: 19:30 Disposition: Home, Self-Care 01 Condition: Good Clinical Impression: Foot pain, Plantar fasciitis - Discharge Information Referrals: PCP,None [Primary Care Provider] - Additional Instructions: The following information is given to patients seen in the emergency department who are being discharged to home. This information is to outline your options for follow-up care. We provide all patients seen in our emergency department with a follow-up referral. The need for follow-up, as well as the timing and circumstances, are variable depending upon the specifics of your emergency department visit. If you don't have a primary care physician on staff, we will provide you with a referral. We always advise you to contact your personal physician following an emergency department visit to inform them of the circumstance of the visit and for follow-up with them and/or the need for any referrals to a consulting specialist. The emergency department will also refer you to a specialist when appropriate. This referral assures that you have the opportunity for followup care with a specialist. All of these measure are taken in an effort to provide you with optimal care, which includes your followup. Under all circumstances we always encourage you to contact your private physician who remains a resource for coordinating your care. When calling for followup care, please make the office aware that this follow-up is from your recent emergency room visit. If for any reason you are refused follow-up, please contact the [facility] emergency department at and asked to speak to the emergency department charge nurse. [facility] - Podiatry [address] [place] [id number] Fax: [phone] Motrin/Tylenol as directed follow-up podiatry as discussed called to schedule routine appointment follow primary medical doctor as needed as discussed
--- NOTE | 2018-05-12 20:23 | CR ---
Indication: Pain Technique: Two views right foot Comparison: None Findings: Bones: Alignment is normal. No fractures or bone lesions. Small inferior and posterior calcaneal enthesophytes. Joint spaces: Unremarkable. Soft tissues: There appears to be diffuse edema. No soft tissue gas. Impression: Edema of the right foot. No acute osseous abnormality. Dictated by Marisa Carlin MD @ May 12 2018 8:20PM Signed by Dr. Marisa Carlin @ May 12 2018 8:22PM
[2018-05-12 21:07] VITALS: BP 104/52
== END 2018-05-12 21:00 | disposition home or self-care (01) ==
LOC: MW.ED 19:13
DX: M72.2 Plantar fascial fibromatosis (principal); I13.0 Hypertensive heart and chronic kidney disease with heart failure and stage 1 through stage 4 chronic kidney disease, or unspecified chronic kidney disease; N18.3 Chronic kidney disease, stage 3 (moderate); I50.9 Heart failure, unspecified; F41.9 Anxiety disorder, unspecified; F32.9 Major depressive disorder, single episode, unspecified; Z79.82 Long term (current) use of aspirin; Z79.899 Other long term (current) drug therapy; Z91.09 Other allergy status, other than to drugs and biological substances
CPT/HCPCS: 73620-26-RT; 73620-RT; 99283-25

== ENCOUNTER 2018-12-24 13:04 | Observation (INO) | payer MEDICARE, MEDICAID ==
[2018-12-24] MEDS ORDERED: Sodium Chloride 0.9% 2.5 ML Syringe FLUSH PRN (13:06)
[2018-12-24] MEDS ORDERED: Sodium Chloride 0.9% 10 ML Syringe FLUSH PRN (13:06)
--- NOTE | 2018-12-24 13:31 | CR ---
INDICATION: SOB TECHNIQUE: Chest 1 view. COMPARISON: 09/21/16 FINDINGS: Cardiovascular and mediastinum: Heart size and vasculature are normal in caliber and appearance. Mediastinum is within normal limits. Lungs and pleural space: Lungs are clear. No sign of infiltrate or mass. No sign of pleural effusion. No pneumothorax. Bones and soft tissues: No significant findings. IMPRESSION: Unremarkable chest. Dictated by: Tejinder Keenan MD @ 12/24/2018 13:30:12 (Electronically Signed)
--- NOTE | 2018-12-24 13:32 | EDM.PDOC ---
ED HPI GENERAL MEDICAL PROBLEM - General Chief Complaint: Chest Pain Stated Complaint: DIFF TIME BREATHING Time Seen by Provider: 12/24/18 13:05 Source of Information: Reports: Patient History Limitations: Reports: No Limitations - History of Present Illness INITIAL COMMENTS - FREE TEXT/NARRATIVE: History of present illness: []Patient is diabetic with hypertension and CHF and coronary artery disease who started having chest pain yesterday around 10 AM it worsened around noon after her cat got out of the house and she was chasing it. She became very short of breath and dizzy and had to stop at a neighbors house her pain lasted throughout the day but subsided the night. His sporting a friend called and asked for lunch and while she was cooking lunch at 9 AM she became short of breath with chest and epigastrium pressure. Patient has been lightheaded when she exerts herself with minimal activity. Patient received aspirin and nitroglycerin in route by EMS without any relief. Review of systems: As per history of present illness and below otherwise all systems reviewed and negative. Past medical history: As per history of present illness and as reviewed below otherwise noncontributory. Surgical history: As per history of present illness and as reviewed below otherwise noncontributory. Social history: No reported history of drug or alcohol abuse. Family history: As per history of present illness and as reviewed below otherwise noncontributory. Physical exam: General: Well developed, well nourished in NAD HEENT: Atraumatic, normocephalic, pupils reactive, negative for conjunctival pallor or scleral icterus, mucous membranes moist, throat clear, neck supple, nontender, trachea midline. Lungs: Clear to auscultation, breath sounds equal bilaterally, chest nontender. No rales no chest wall retractions no respiratory distress Heart: S1S2, regular, negative for clicks, rubs, or JVD. Abdomen: NABS, Soft, nondistended, epigastric tenderness to palpation no rebound or guarding. Negative for masses or hepatosplenomegaly. Negative for costovertebral tenderness. Pelvis: Stable nontender. Genitourinary: Deferred. Rectal: Deferred. Extremities: Atraumatic, negative for cords or calf pain. Neurovascular unremarkable. Neuro: Awake, alert, oriented. Cranial nerves II through XII unremarkable. Cerebellum unremarkable. Motor and sensory unremarkable throughout. Exam nonfocal. Skin:warm and dry Diagnostics: EKG, chest x-ray, CBC, chemistry, troponin Therapeutics: GI cocktail-some relief ED Course: Stable Impression: Chest pain, GERD Prescriptions: none Plan: Admit for observation rule out NM Definitive disposition and diagnosis as appropriate pending reevaluation and review of above. 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, IV/IO, Oxygen Chest pain Pain Score (Numeric/FACES): 8 - Related Data Allergies Allergy/AdvReac Type Severity Reaction Status Date / Time Tape adhesives Allergy Blisters Uncoded 12/24/18 13:18 Home Meds: Home Meds Furosemide 40 mg PO BID 11/08/14 [History] Metoprolol Tartrate [Lopressor] 25 mg PO BID 11/08/14 [History] Nitroglycerin [Nitrostat] 0.4 mg SL ASDIRECTED PRN 11/08/14 [History] Oxybutynin Chloride 5 mg PO BID 11/08/14 [History] Rosuvastatin [Crestor] 40 mg PO DAILY 11/08/14 [History] Potassium Chloride 10 meq PO DAILY 05/22/15 [History] ALPRAZolam [Alprazolam] 0.5 mg PO BID PRN 08/20/15 [History] Aspirin [Children's Aspirin] 81 mg PO DAILY 08/20/15 [History] Hydrocodone/Acetaminophen [Hydrocodon-Acetaminophen 5-325] 1 tab PO Q6H PRN [History] Docusate Sodium [Colace] 100 mg PO BID 05/12/18 [History] Olmesartan Medoxomil 40 mg PO DAILY 05/12/18 [History] Past Medical History HEENT History: Reports: Cataract, Impaired Vision Other HEENT History: wears glasses, has upper dentures, loss of peripheral vision. 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: Musculoskeletal History: Reports: Back Pain, Chronic Other Musculoskeletal History: Lot of arthritis to back, hx: fracturing Right and Left ankle, Right and Left arms, 2 toes Neurological History: Reports: None Other Neuro History: Restless Leg syndrome Psychiatric History: Reports: Anxiety, Depression Other Psychiatric History: "Some depression, but have good supports and reach out" Endocrine/Metabolic History: Reports: Obesity/BMI 30+ Other Endocrine/Metabolic History: History of Type I diabetes in dictation, she reports 'abnormal glucose' Hematologic History: Reports: None Immunologic History: Reports: None Oncologic (Cancer) History: Reports: Other (See Below) Other Oncologic History: skin cancer on nose, uterus ca, removal of stomach tumor Dermatologic History: Reports: Other (See Below) Other Dermatologic History: ABnormal cells to face - Infectious Disease History Infectious Disease History: Reports: Chicken Pox, Measles - Past Surgical History HEENT Surgical History: Reports: Cataract Surgery, Tonsillectomy, Other (See Below) Cardiovascular Surgical History: Reports: None Female Surgical History: Reports: Hysterectomy Endocrine Surgical History: Reports: None Other Endocrine Surgeries/Procedures: pt states she does not have diabetes Neurological Surgical History: Reports: Discectomy Other Neurological Surgeries/Procedures: 3 discs in back Musculoskeletal Surgical History: Reports: Knee Replacement, Other (See Below) Other Musculoskeletal Surgeries/Procedures:: right knee replacemnt, back surgery L3-L4 Oncologic Surgical History: Reports: Other (See Below) Social & Family History - Family History Family Medical History: Noncontributory Oncologic: Reports: Cervix, Lung, Other (See Below) Other Oncologic Family History: spine - Tobacco Use Smoking Status *Q: Never Smoker - Caffeine Use Caffeine Use: Reports: Coffee, Soda - Recreational Drug Use Recreational Drug Use: No ED ROS GENERAL - Review of Systems Review Of Systems: See Below ED EXAM, GENERAL - Physical Exam Exam: See Below Course - Vital Signs Last Recorded V/S: Last Vital Signs Temp 96.8 F 12/24/18 13:15 Pulse 70 12/24/18 13:42 Resp 20 12/24/18 13:42 BP 139/67 12/24/18 13:42 Pulse Ox 93 L 12/24/18 13:42 - Orders/Labs/Meds Orders: Active Orders 24 hr Category Date Time Status Patient Status [ADT] Stat ADT 12/24/18 13:58 Ordered Cardiac Monitoring [RC] . DIRECTED Care 12/24/18 13:06 Active EKG Documentation Completion [RC] STAT Care 12/24/18 13:06 Active Sodium Chloride 0.9% [Saline Flush] Med 12/24/18 13:06 Active 10 ml FLUSH ASDIRECTED PRN Sodium Chloride 0.9% [Saline Flush] Med 12/24/18 13:06 Active 2.5 ml FLUSH ASDIRECTED PRN Saline Lock Insert [OM.PC] Stat Oth 12/24/18 13:06 Ordered Medication Orders Sodium Chloride (Saline Flush) 10 ml FLUSH ASDIRECTED PRN PRN Reason: Keep Vein Open Last Admin: 12/24/18 13:41 Dose: 10 ml Sodium Chloride (Saline Flush) 2.5 ml FLUSH ASDIRECTED PRN PRN Reason: Keep Vein Open Last Admin: 12/24/18 13:42 Dose: 2.5 ml Labs: Laboratory Tests 12/24/18 12/24/18 Range/Units 13:10 13:10 WBC 10.38 (4.0-11.0) K/uL RBC 4.99 (4.30-5.90) M/uL Hgb 13.8 (12.0-16.0) g/dL Hct 42.0 (36.0-46.0) % MCV 84.2 (80.0-98.0) fL MCH 27.7 (27.0-32.0) pg MCHC 32.9 (31.0-37.0) g/dL RDW Std Deviation 49.5 (28.0-62.0) fl RDW Coeff of Shu 16 H (11.0-15.0) % Plt Count 181 (150-400) K/uL MPV 11.30 (7.40-12.00) fL Neut % (Auto) 64.5 (48.0-80.0) % Lymph % (Auto) 25.7 (16.0-40.0) % [place] % (Auto) 6.9 (0.0-15.0) % Eos % (Auto) 2.5 (0.0-7.0) % Baso % (Auto) 0.4 (0.0-1.5) % Neut # (Auto) 6.7 H (1.4-5.7) K/uL Lymph # (Auto) 2.7 H (0.6-2.4) K/uL [place] # (Auto) 0.7 (0.0-0.8) K/uL Eos # (Auto) 0.3 (0.0-0.7) K/uL Baso # (Auto) 0.0 (0.0-0.1) K/uL Nucleated RBC % 0.0 /100WBC Nucleated RBCs # 0 K/uL Sodium 145 (136-145) mmol/L Potassium 3.9 (3.5-5.1) mmol/L Chloride 106 (98-107) mmol/L Carbon Dioxide 30.1 (21.0-32.0) mmol/L BUN 17 (7.0-18.0) mg/dL Creatinine 1.3 H (0.6-1.0) mg/dL Est Cr Clr Drug Dosing 32.78 mL/min Estimated GFR (MDRD) 40.0 ml/min Glucose 112 H (74-106) mg/dL Calcium 9.5 (8.5-10.1) mg/dL Total Bilirubin 0.6 (0.2-1.0) mg/dL AST 14 L (15-37) IU/L ALT 16 (14-63) IU/L Alkaline Phosphatase 74 (46-116) U/L Troponin I < 0.050 (0.000-0.056) ng/mL Total Protein 7.8 (6.4-8.2) g/dL Albumin 3.5 (3.4-5.0) g/dL Globulin 4.3 H (2.6-4.0) g/dL Albumin/Globulin Ratio 0.8 L (0.9-1.6) Meds: Medications Generic Name Dose Route Start Last Admin Trade Name Freq PRN Reason Stop Dose Admin Sodium Chloride 10 ml 12/24/18 13:06 12/24/18 13:41 Saline Flush FLUSH 10 ml ASDIRECTED PRN Administration Keep Vein Open Sodium Chloride 2.5 ml 12/24/18 13:06 12/24/18 13:42 Saline Flush FLUSH 2.5 ml ASDIRECTED PRN Administration Keep Vein Open Discontinued Medications Generic Name Dose Route Start Last Admin Trade Name Freq PRN Reason Stop Dose Admin Al Hydroxide/Mg Hydroxide 15 0 ml 12/24/18 13:35 12/24/18 13:41 ml/ Lidocaine HCl 5 ml PO 12/24/18 13:36 20 each ONETIME ONE Administration Departure - Departure Time of Disposition: 14:02 Disposition: Home, Self-Care 01 Condition: Good Clinical Impression: Chest pain Qualifiers: Chest pain type: unspecified Qualified Code(s): R07.9 - Chest pain, unspecified Referrals: PCP,Unobtain [Primary Care Provider] - Forms: ED Department Discharge - My Orders Last 24 Hours: My Active Orders 12/24/18 13:06 Cardiac Monitoring [RC] . DIRECTED EKG Documentation Completion [RC] STAT Sodium Chloride 0.9% [Saline Flush] 10 ml FLUSH ASDIRECTED PRN Sodium Chloride 0.9% [Saline Flush] 2.5 ml FLUSH ASDIRECTED PRN Saline Lock Insert [OM.PC] Stat 12/24/18 13:58 Patient Status [ADT] Stat - Assessment/Plan Last 24 Hours: My Active Orders 12/24/18 13:06 Cardiac Monitoring [RC] . DIRECTED EKG Documentation Completion [RC] STAT Sodium Chloride 0.9% [Saline Flush] 10 ml FLUSH ASDIRECTED PRN Sodium Chloride 0.9% [Saline Flush] 2.5 ml FLUSH ASDIRECTED PRN Saline Lock Insert [OM.PC] Stat 12/24/18 13:58 Patient Status [ADT] Stat
[2018-12-24] MEDS ORDERED: Alum Hydrox/Mag Hydrox/Simeth 15 ML, Lidocaine 2% 5 ML PO ONE ×2 (13:35)
[2018-12-24 13:38] LABS: BLOOD UREA NITROGEN,BUN 17 mg/dL (7.0-18.0); CARBON DIOXIDE,CO2 30.1 mmol/L (21.0-32.0); CHLORIDE,CL 106 mmol/L (98-107); GLUCOSE RANDOM 112 mg/dL (74-106); POTASSIUM,K 3.9 mmol/L (3.5-5.1); SODIUM,NA 145 mmol/L (136-145)
[2018-12-24] MEDS ORDERED: Ondansetron 4 MG Tab.DIS PO PRN (14:17)
[2018-12-24] MEDS ORDERED: Acetaminophen 325 MG Tab PO PRN (14:17)
[2018-12-24] MEDS ORDERED: Ibuprofen 600 MG Tab PO PRN (14:17)
[2018-12-24] MEDS ORDERED: Albuterol/Ipratropium 3.0-0.5 MG/3 ML Neb Soln NEB PRN (14:17)
[2018-12-24] MEDS ORDERED: Polyethylene Glycol 3350 Powder 17 GM Packet PO PRN (14:17)
[2018-12-24] MEDS ORDERED: Bisacodyl 5 MG Tab PO PRN (14:17)
[2018-12-24] MEDS ORDERED: Ketorolac 30 MG/ML SDV IV PRN (14:17)
[2018-12-24] MEDS ORDERED: Ondansetron 4 MG/2 ML SDV IVPUSH PRN (14:17)
[2018-12-24] MEDS ORDERED: Sucralfate Suspension 1 GM/10 ML Cup PO ONE (14:22)
[2018-12-24] MEDS ORDERED: Nitroglycerin 0.4 MG Tab.SL SL PRN (14:27)
--- NOTE | 2018-12-24 14:28 | PCM.HP.2 ---
H&P History of Present Illness - General Date of Service: 12/24/18 Admit Problem/Dx: Admission Diagnosis/Problem Admission Diagnosis/Problem Chest pain - History of Present Illness Initial Comments - Free Text/Narative: 73 y/o female with history CAD, HTN, CKD stage 3 who presented to the ER complaining of chest pain. Patient states that she started having epigastric, sternal pain last night when going to bed. Sharp pain, rated 10/10, lasting few minutes. Denies any nausea, vomiting. No radiation to neck or arms. She was able to go back to sleep. However, this morning patient states she was cooking when she suddenly felt a sharp, intense pain in epigastric area. Lasting few minutes. Resolved on its own. She used nitroglycerin x1 but did not help. States that pain radiated to her back. Has also noticed she gets more short of breath when going one flight of stairs or walking. Manuel smoking, alcohol. Has had a cholecystectomy and appendectomy. Denies acid reflux. In the ER, EKG showed sinus rhythm, no acute ST changes. Troponin was negative. Chest pain Pain Score (Numeric/FACES): 8 - Related Data Allergies/Adverse Reactions: Allergies Allergy/AdvReac Type Severity Reaction Status Date / Time Tape adhesives Allergy Blisters Uncoded 12/24/18 15:26 Home Medications: Home Meds Furosemide 40 mg PO BID 11/08/14 [History] Metoprolol Tartrate [Lopressor] 25 mg PO BID 11/08/14 [History] Nitroglycerin [Nitrostat] 0.4 mg SL ASDIRECTED PRN 11/08/14 [History] Oxybutynin Chloride 5 mg PO BID 11/08/14 [History] Rosuvastatin [Crestor] 40 mg PO DAILY 11/08/14 [History] Potassium Chloride 10 meq PO DAILY 05/22/15 [History] ALPRAZolam [Alprazolam] 0.5 mg PO BID PRN 08/20/15 [History] Aspirin [Children's Aspirin] 81 mg PO DAILY 08/20/15 [History] Hydrocodone/Acetaminophen [Hydrocodon-Acetaminophen 5-325] 1 tab PO Q6H PRN [History] Docusate Sodium [Colace] 100 mg PO BID 05/12/18 [History] Olmesartan Medoxomil 40 mg PO DAILY 05/12/18 [History] Past Medical History HEENT History: Reports: Cataract, Impaired Vision Other HEENT History: wears glasses, has upper dentures, loss of peripheral vision. 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: Musculoskeletal History: Reports: Back Pain, Chronic Other Musculoskeletal History: Lot of arthritis to back, hx: fracturing Right and Left ankle, Right and Left arms, 2 toes Neurological History: Reports: None Other Neuro History: Restless Leg syndrome Psychiatric History: Reports: Anxiety, Depression Other Psychiatric History: "Some depression, but have good supports and reach out" Endocrine/Metabolic History: Reports: Obesity/BMI 30+ Other Endocrine/Metabolic History: History of Type I diabetes in dictation, she reports 'abnormal glucose' Hematologic History: Reports: None Immunologic History: Reports: None Oncologic (Cancer) History: Reports: Other (See Below) Other Oncologic History: skin cancer on nose, uterus ca, removal of stomach tumor Dermatologic History: Reports: Other (See Below) Other Dermatologic History: ABnormal cells to face - Infectious Disease History Infectious Disease History: Reports: Chicken Pox, Measles - Past Surgical History HEENT Surgical History: Reports: Cataract Surgery, Tonsillectomy, Other (See Below) Cardiovascular Surgical History: Reports: None Female Surgical History: Reports: Hysterectomy Endocrine Surgical History: Reports: None Other Endocrine Surgeries/Procedures: pt states she does not have diabetes Neurological Surgical History: Reports: Discectomy Other Neurological Surgeries/Procedures: 3 discs in back Musculoskeletal Surgical History: Reports: Knee Replacement, Other (See Below) Other Musculoskeletal Surgeries/Procedures:: right knee replacemnt, back surgery L3-L4 Oncologic Surgical History: Reports: Other (See Below) Social & Family History - Family History Family Medical History: Noncontributory Oncologic: Reports: Cervix, Lung, Other (See Below) Other Oncologic Family History: spine - Tobacco Use Smoking Status *Q: Never Smoker - Caffeine Use Caffeine Use: Reports: Coffee, Soda - Recreational Drug Use Recreational Drug Use: No H&P Review of Systems - Review of Systems: Review Of Systems: ROS reveals no pertinent complaints other than HPI. Exam - Exam Exam: See Below - Vital Signs Vital Signs: Last Vital Signs Temp 36.0 C 12/24/18 13:15 Pulse 70 12/24/18 13:42 Resp 20 12/24/18 13:42 BP 139/67 12/24/18 13:42 Pulse Ox 93 L 12/24/18 13:42 Weight: 140.614 kg - Exam General: Alert, Oriented, Cooperative HEENT: Conjunctiva Clear, Mucosa Moist & [place] Lungs: Clear to Auscultation, Normal Respiratory Effort. No: Crackles, Wheezing Cardiovascular: Regular Rate, Regular Rhythm GI/Abdominal Exam: Other (Large habitus. tender to palpation on epigastri area.) Back Exam: Normal Inspection. No: CVA Tenderness (L), CVA Tenderness (R) Extremities: Normal Inspection, Non-Tender Skin: Warm, Dry - Patient Data Lab Results Last 24 hrs: Laboratory Results - last 24 hr 12/24/18 12/24/18 Range/Units 13:10 13:10 WBC 10.38 (4.0-11.0) K/uL RBC 4.99 (4.30-5.90) M/uL Hgb 13.8 (12.0-16.0) g/dL Hct 42.0 (36.0-46.0) % MCV 84.2 (80.0-98.0) fL MCH 27.7 (27.0-32.0) pg MCHC 32.9 (31.0-37.0) g/dL RDW Std Deviation 49.5 (28.0-62.0) fl RDW Coeff of Shu 16 H (11.0-15.0) % Plt Count 181 (150-400) K/uL MPV 11.30 (7.40-12.00) fL Neut % (Auto) 64.5 (48.0-80.0) % Lymph % (Auto) 25.7 (16.0-40.0) % [place] % (Auto) 6.9 (0.0-15.0) % Eos % (Auto) 2.5 (0.0-7.0) % Baso % (Auto) 0.4 (0.0-1.5) % Neut # (Auto) 6.7 H (1.4-5.7) K/uL Lymph # (Auto) 2.7 H (0.6-2.4) K/uL [place] # (Auto) 0.7 (0.0-0.8) K/uL Eos # (Auto) 0.3 (0.0-0.7) K/uL Baso # (Auto) 0.0 (0.0-0.1) K/uL Nucleated RBC % 0.0 /100WBC Nucleated RBCs # 0 K/uL Sodium 145 (136-145) mmol/L Potassium 3.9 (3.5-5.1) mmol/L Chloride 106 (98-107) mmol/L Carbon Dioxide 30.1 (21.0-32.0) mmol/L BUN 17 (7.0-18.0) mg/dL Creatinine 1.3 H (0.6-1.0) mg/dL Est Cr Clr Drug Dosing 32.78 mL/min Estimated GFR (MDRD) 40.0 ml/min Glucose 112 H (74-106) mg/dL Calcium 9.5 (8.5-10.1) mg/dL Total Bilirubin 0.6 (0.2-1.0) mg/dL AST 14 L (15-37) IU/L ALT 16 (14-63) IU/L Alkaline Phosphatase 74 (46-116) U/L Troponin I < 0.050 (0.000-0.056) ng/mL Total Protein 7.8 (6.4-8.2) g/dL Albumin 3.5 (3.4-5.0) g/dL Globulin 4.3 H (2.6-4.0) g/dL Albumin/Globulin Ratio 0.8 L (0.9-1.6) Result Diagrams: 12/24/18 13:10 12/24/18 13:10 Problem List Initiated/Reviewed/Updated: Yes Orders Last 24hrs: Active Orders 24 hr Category Date Time Status Patient Status [ADT] Stat ADT 12/24/18 13:58 Active Blood Glucose Check, Bedside [RC] TIDMEALS Care 12/24/18 14:17 Active Cardiac Monitoring [RC] . DIRECTED Care 12/24/18 13:06 Active EKG Documentation Completion [RC] STAT Care 12/24/18 13:06 Active Intake and Output [RC] QSHIFT Care 12/24/18 14:19 Active Oxygen Therapy [RC] PRN Care 12/24/18 14:18 Active RT Aerosol Therapy [RC] ASDIRECTED Care 12/24/18 14:20 Active Up With Assistance [RC] ASDIRECTED Care 12/24/18 14:17 Active VTE/DVT Education [RC] PER UNIT ROUTINE Care 12/24/18 14:18 Active Vital Signs [RC] Q4H Care 12/24/18 14:18 Active Heart Healthy Diet [DIET] Diet 12/24/18 Dinner Active B-TYPE NATRIURETIC PEPTIDE,BNP [CHEM] Routine Lab 12/24/18 14:24 Ordered CBC WITH AUTO DIFF [HEME] AM Lab 12/25/18 05:11 Ordered COMPREHENSIVE METABOLIC PN,CMP [CHEM] AM Lab 12/25/18 05:11 Ordered TROPONIN I [CHEM] Q6H Lab 12/24/18 19:00 Ordered TROPONIN I [CHEM] Q6H Lab 12/25/18 01:00 Ordered Acetaminophen [Tylenol] Med 12/24/18 14:17 Active 650 mg PO Q4H PRN Albuterol/Ipratropium [DuoNeb 3.0-0.5 MG/3 ML] Med 12/24/18 14:17 Active 3 ml NEB Q4HRRT PRN Aspirin Med 12/25/18 09:00 Active 81 mg PO DAILY Bisacodyl [Dulcolax] Med 12/24/18 14:17 Active 5 mg PO DAILY PRN Enoxaparin [Lovenox] Med 12/24/18 14:30 Active 40 mg SUBCUT Q24H Ibuprofen [Motrin] Med 12/24/18 14:17 Active 600 mg PO Q6H PRN Insulin Aspart [NovoLOG] Med 12/24/18 17:00 Active See Protocol SUBCUT TIDAC Ketorolac [Toradol] Med 12/24/18 14:17 Active 15 mg IV Q6H PRN Metoprolol Tartrate [Lopressor] Med 12/24/18 21:00 Active 25 mg PO BID Morphine Med 12/24/18 14:17 Active 2 mg IVPUSH Q2H PRN Nitroglycerin [Nitrostat] Med 12/24/18 14:27 Active 0.4 mg SL Q5M PRN Ondansetron [Zofran ODT] Med 12/24/18 14:17 Active 4 mg PO Q4H PRN Ondansetron [Zofran] Med 12/24/18 14:17 Active 4 mg IVPUSH Q4H PRN Pantoprazole [ProTONIX] Med 12/24/18 14:30 Active 40 mg PO DAILY Polyethylene Glycol 3350 [MiraLAX] Med 12/24/18 14:17 Active 17 gm PO DAILY PRN Rosuvastatin [Crestor] Med 12/25/18 09:00 Active 40 mg PO DAILY Sodium Chloride 0.9% [Saline Flush] Med 12/24/18 13:06 Active 10 ml FLUSH ASDIRECTED PRN Sodium Chloride 0.9% [Saline Flush] Med 12/24/18 13:06 Active 2.5 ml FLUSH ASDIRECTED PRN Saline Lock Insert [OM.PC] Stat Oth 12/24/18 13:06 Ordered Resuscitation Status Routine Resus Stat 12/24/18 14:17 Ordered Medication Orders Acetaminophen (Tylenol) 650 mg PO Q4H PRN PRN Reason: Pain (Mild 1-3)/fever Albuterol/Ipratropium (Duoneb 3.0-0.5 Mg/3 Ml) 3 ml NEB Q4HRRT PRN PRN Reason: Shortness Of Breath/wheezing Aspirin (Aspirin) 81 mg PO DAILY HUMBERTO Bisacodyl (Dulcolax) 5 mg PO DAILY PRN PRN Reason: Constipation Enoxaparin Sodium (Lovenox) 40 mg SUBCUT Q24H HUMBERTO Ibuprofen (Motrin) 600 mg PO Q6H PRN PRN Reason: Pain (mild 1-3) Insulin Aspart (Novolog) 0 unit SUBCUT TIDAC HUMBERTO; Protocol Ketorolac Tromethamine (Toradol) 15 mg IV Q6H PRN PRN Reason: Pain (moderate 4-6) Metoprolol Tartrate (Lopressor) 25 mg PO BID HUMBERTO Morphine Sulfate (Morphine) 2 mg IVPUSH Q2H PRN PRN Reason: Pain (severe 7-10) Stop: 12/25/18 14:19 Nitroglycerin (Nitrostat) 0.4 mg SL Q5M PRN PRN Reason: Chest Pain Non-Formulary Medication (Rosuvastatin [Crestor]) 40 mg PO DAILY HUMBERTO Ondansetron HCl (Zofran Odt) 4 mg PO Q4H PRN PRN Reason: nausea, able to take PO Ondansetron HCl (Zofran) 4 mg IVPUSH Q4H PRN PRN Reason: Nausea Pantoprazole Sodium (Protonix) 40 mg PO DAILY HUMBERTO Polyethylene Glycol (Miralax) 17 gm PO DAILY PRN PRN Reason: Constipation Sodium Chloride (Saline Flush) 10 ml FLUSH ASDIRECTED PRN PRN Reason: Keep Vein Open Last Admin: 12/24/18 13:41 Dose: 10 ml Sodium Chloride (Saline Flush) 2.5 ml FLUSH ASDIRECTED PRN PRN Reason: Keep Vein Open Last Admin: 12/24/18 13:42 Dose: 2.5 ml Assessment/Plan Comment:: A: 1. chest pain, rule out ACS 2. CKD stage 3 3. Hypertension 4. PMH CAD, morbid obesity P: 1. Will get serial troponins. Telemetry. Nitroglycerin, Morphine PRN for chest pain. Will continue home medications for CAD and Hypertension. Will give pantoprazole and carafate and see if that helps with her epigastric pain. Dispo: 1-2 days.
[2018-12-24] MEDS ORDERED: Enoxaparin 40 MG/0.4 ML Syringe SUBCUT SCH (14:30)
[2018-12-24] MEDS: Pantoprazole 40 MG Tab.CR PO SCH (15:23)
[2018-12-24] MEDS: Heparin Sodium 5,000 Units/ML Vial SUBCUT SCH ×2 (16:06→23:18)
[2018-12-24] MEDS ORDERED: ALPRAZolam 0.5 MG Tab PO PRN (17:16)
[2018-12-24] MEDS: Morphine 10 MG/ML Syringe IVPUSH PRN ×2 (17:16→21:01)
[2018-12-24] MEDS: Insulin Aspart 100 Units/ML 3 ML Pen SUBCUT SCH (17:29)
[2018-12-24] MEDS: Furosemide 40 MG Tab PO SCH (20:59)
[2018-12-24] MEDS: Oxybutynin 5 MG Tab PO SCH (20:59)
[2018-12-24] MEDS: Metoprolol Tartrate 25 MG Tab PO SCH (20:59)
[2018-12-24] MEDS: Nystatin Crm 30 GM Tube TOP SCH (21:00)
[2018-12-25] MEDS: Morphine 10 MG/ML Syringe IVPUSH PRN (02:42)
[2018-12-25 06:03] LABS: CARBON DIOXIDE,CO2 32.4 mmol/L (21.0-32.0); POTASSIUM,K 4.2 mmol/L (3.5-5.1)
[2018-12-25] MEDS: Heparin Sodium 5,000 Units/ML Vial SUBCUT SCH (06:34)
[2018-12-25] MEDS: Sucralfate Suspension 1 GM/10 ML Cup PO SCH ×2 (06:35→11:45)
[2018-12-25] MEDS: Insulin Aspart 100 Units/ML 3 ML Pen SUBCUT SCH ×2 (07:58→11:45)
[2018-12-25 08:05] VITALS: BP 123/82; PULSE 55
[2018-12-25] MEDS ORDERED: Aspirin 81 MG Tab.Chew PO SCH (09:00)
[2018-12-25] MEDS ORDERED: Olmesartan 20 MG Tab PO SCH (09:00)
[2018-12-25] MEDS ORDERED: Non-Formulary Medication 1 Each (Rosuvastatin [Crestor] 40 MG) PO SCH (09:00)
[2018-12-25] MEDS: Pantoprazole 40 MG Tab.CR PO SCH (09:03)
[2018-12-25] MEDS: Furosemide 40 MG Tab PO SCH (09:03)
[2018-12-25] MEDS: Oxybutynin 5 MG Tab PO SCH (09:03)
[2018-12-25] MEDS: Nystatin Crm 30 GM Tube TOP SCH (09:04)
[2018-12-25] MEDS: Metoprolol Tartrate 25 MG Tab PO SCH (09:05)
[2018-12-25] MEDS ORDERED: Rosuvastatin 10 MG Tab PO SCH (09:54)
--- NOTE | 2018-12-25 10:58 | PCM.DCSUM1 ---
<Nikkypatricia Jim Howell - Last Filed: 12/25/18 16:13> Discharge Summary - Hospital Course Free Text/Narrative:: 73 y/o female presenting with epigastric pain. Admitted for chest pain, ACS rule out. Serial troponins x3 were negative. Epigastric pain improved with Pantoprazole and Carafate. She improved overnight. She was discharged home on omeprazole and carafate and instructions to follow-up with her PCP. Patient may need upper endoscopy if still having acid reflux. - Discharge Data Discharge Date: 12/25/18 Discharge Disposition: Home, Self-Care 01 Condition: Good - Referral to Home Health Primary Care Physician: PCP Unobtainable - Patient Instructions Diet: Regular Diet as Tolerated Activity: As Tolerated Notify Provider of: Fever, Increased Pain, Swelling and Redness, Nausea and/or Vomiting - Discharge Plan Prescriptions/Med Rec: Nystatin [Nystatin Crm] 1 gm TOP BID #1 tube Omeprazole 20 mg PO ACBREAKFAST 30 Days #30 cap.sr Sucralfate [Carafate] 1 gm PO TIDAC #90 tablet Home Medications: Home Meds Furosemide 40 mg PO BID 11/08/14 [History] Metoprolol Tartrate [Lopressor] 25 mg PO BID 11/08/14 [History] Nitroglycerin [Nitrostat] 0.4 mg SL ASDIRECTED PRN 11/08/14 [History] Oxybutynin Chloride 5 mg PO BID 11/08/14 [History] Rosuvastatin [Crestor] 40 mg PO DAILY 11/08/14 [History] Potassium Chloride 10 meq PO DAILY 05/22/15 [History] ALPRAZolam [Alprazolam] 0.5 mg PO BID PRN 08/20/15 [History] Aspirin [Children's Aspirin] 81 mg PO DAILY 08/20/15 [History] Hydrocodone/Acetaminophen [Hydrocodon-Acetaminophen 5-325] 1 tab PO Q6H PRN [History] Docusate Sodium [Colace] 100 mg PO BID 05/12/18 [History] Olmesartan Medoxomil 40 mg PO DAILY 05/12/18 [History] Nystatin [Nystatin Crm] 1 gm TOP BID #1 tube 12/25/18 [Rx] Omeprazole 20 mg PO ACBREAKFAST 30 Days #30 cap.sr 12/25/18 [Rx] Sucralfate [Carafate] 1 gm PO TIDAC #90 tablet 12/25/18 [Rx] Patient Handouts: Nystatin skin cream or ointment, Nonspecific Chest Pain, Easy -to-Read, Sucralfate tablets, Omeprazole tablets (OTC) Referrals: [facility] [Outside] Tavon Fregoso MD [Physician] - 12/28/18 9:00 am - Discharge Summary/Plan Comment DC Time >30 min.: No - Patient Data Vitals - Most Recent: Last Vital Signs Temp 36.2 C 12/25/18 08:00 Pulse 55 L 12/25/18 08:00 Resp 20 12/25/18 08:00 BP 123/82 12/25/18 09:04 Pulse Ox 95 12/25/18 08:00 Weight - Most Recent: 140.614 kg I&O - Last 24 hours: Intake & Output 12/24/18 12/25/18 12/25/18 22:59 06:59 14:59 Intake Total 1136 Output Total 1000 Balance 136 Lab Results - Last 24 hrs: Laboratory Results - last 24 hr 12/24/18 12/24/18 12/24/18 Range/Units 13:10 13:10 13:10 WBC 10.38 (4.0-11.0) K/uL RBC 4.99 (4.30-5.90) M/uL Hgb 13.8 (12.0-16.0) g/dL Hct 42.0 (36.0-46.0) % MCV 84.2 (80.0-98.0) fL MCH 27.7 (27.0-32.0) pg MCHC 32.9 (31.0-37.0) g/dL RDW Std Deviation 49.5 (28.0-62.0) fl RDW Coeff of Shu 16 H (11.0-15.0) % Plt Count 181 (150-400) K/uL MPV 11.30 (7.40-12.00) fL Neut % (Auto) 64.5 (48.0-80.0) % Lymph % (Auto) 25.7 (16.0-40.0) % [place] % (Auto) 6.9 (0.0-15.0) % Eos % (Auto) 2.5 (0.0-7.0) % Baso % (Auto) 0.4 (0.0-1.5) % Neut # (Auto) 6.7 H (1.4-5.7) K/uL Lymph # (Auto) 2.7 H (0.6-2.4) K/uL [place] # (Auto) 0.7 (0.0-0.8) K/uL Eos # (Auto) 0.3 (0.0-0.7) K/uL Baso # (Auto) 0.0 (0.0-0.1) K/uL Nucleated RBC % 0.0 /100WBC Nucleated RBCs # 0 K/uL Sodium 145 (136-145) mmol/L Potassium 3.9 (3.5-5.1) mmol/L Chloride 106 (98-107) mmol/L Carbon Dioxide 30.1 (21.0-32.0) mmol/L BUN 17 (7.0-18.0) mg/dL Creatinine 1.3 H (0.6-1.0) mg/dL Est Cr Clr Drug Dosing 32.78 mL/min Estimated GFR (MDRD) 40.0 ml/min Glucose 112 H (74-106) mg/dL POC Glucose (60-110) mg/dL Calcium 9.5 (8.5-10.1) mg/dL Total Bilirubin 0.6 (0.2-1.0) mg/dL AST 14 L (15-37) IU/L ALT 16 (14-63) IU/L Alkaline Phosphatase 74 (46-116) U/L Troponin I < 0.050 (0.000-0.056) ng/mL Total Protein 7.8 (6.4-8.2) g/dL Albumin 3.5 (3.4-5.0) g/dL Globulin 4.3 H (2.6-4.0) g/dL Albumin/Globulin Ratio 0.8 L (0.9-1.6) Lipase 108 (73-393) U/L 12/24/18 12/24/18 12/25/18 Range/Units 15:16 19:03 00:55 WBC (4.0-11.0) K/uL RBC (4.30-5.90) M/uL Hgb (12.0-16.0) g/dL Hct (36.0-46.0) % MCV (80.0-98.0) fL MCH (27.0-32.0) pg MCHC (31.0-37.0) g/dL RDW Std Deviation (28.0-62.0) fl RDW Coeff of Shu (11.0-15.0) % Plt Count (150-400) K/uL MPV (7.40-12.00) fL Neut % (Auto) (48.0-80.0) % Lymph % (Auto) (16.0-40.0) % [place] % (Auto) (0.0-15.0) % Eos % (Auto) (0.0-7.0) % Baso % (Auto) (0.0-1.5) % Neut # (Auto) (1.4-5.7) K/uL Lymph # (Auto) (0.6-2.4) K/uL [place] # (Auto) (0.0-0.8) K/uL Eos # (Auto) (0.0-0.7) K/uL Baso # (Auto) (0.0-0.1) K/uL Nucleated RBC % /100WBC Nucleated RBCs # K/uL Sodium (136-145) mmol/L Potassium (3.5-5.1) mmol/L Chloride (98-107) mmol/L Carbon Dioxide (21.0-32.0) mmol/L BUN (7.0-18.0) mg/dL Creatinine (0.6-1.0) mg/dL Est Cr Clr Drug Dosing mL/min Estimated GFR (MDRD) ml/min Glucose (74-106) mg/dL POC Glucose 92 (60-110) mg/dL Calcium (8.5-10.1) mg/dL Total Bilirubin (0.2-1.0) mg/dL AST (15-37) IU/L ALT (14-63) IU/L Alkaline Phosphatase (46-116) U/L Troponin I < 0.050 < 0.050 (0.000-0.056) ng/mL Total Protein (6.4-8.2) g/dL Albumin (3.4-5.0) g/dL Globulin (2.6-4.0) g/dL Albumin/Globulin Ratio (0.9-1.6) Lipase (73-393) U/L 12/25/18 12/25/18 12/25/18 Range/Units 05:00 05:00 06:53 WBC 6.45 (4.0-11.0) K/uL RBC 4.73 (4.30-5.90) M/uL Hgb 12.8 (12.0-16.0) g/dL Hct 40.4 (36.0-46.0) % MCV 85.4 (80.0-98.0) fL MCH 27.1 (27.0-32.0) pg MCHC 31.7 (31.0-37.0) g/dL RDW Std Deviation 51.4 (28.0-62.0) fl RDW Coeff of Shu 16 H (11.0-15.0) % Plt Count 168 (150-400) K/uL MPV 11.90 (7.40-12.00) fL Neut % (Auto) 42.6 L (48.0-80.0) % Lymph % (Auto) 45.0 H (16.0-40.0) % [place] % (Auto) 7.6 (0.0-15.0) % Eos % (Auto) 4.2 (0.0-7.0) % Baso % (Auto) 0.6 (0.0-1.5) % Neut # (Auto) 2.8 (1.4-5.7) K/uL Lymph # (Auto) 2.9 H (0.6-2.4) K/uL [place] # (Auto) 0.5 (0.0-0.8) K/uL Eos # (Auto) 0.3 (0.0-0.7) K/uL Baso # (Auto) 0.0 (0.0-0.1) K/uL Nucleated RBC % 0.0 /100WBC Nucleated RBCs # 0 K/uL Sodium 143 (136-145) mmol/L Potassium 4.2 (3.5-5.1) mmol/L Chloride 105 (98-107) mmol/L Carbon Dioxide 32.4 H (21.0-32.0) mmol/L BUN 22 H (7.0-18.0) mg/dL Creatinine 1.2 H (0.6-1.0) mg/dL Est Cr Clr Drug Dosing 35.52 mL/min Estimated GFR (MDRD) 43.9 ml/min Glucose 92 (74-106) mg/dL POC Glucose 89 (60-110) mg/dL Calcium 9.0 (8.5-10.1) mg/dL Total Bilirubin 0.6 (0.2-1.0) mg/dL AST 15 (15-37) IU/L ALT 14 (14-63) IU/L Alkaline Phosphatase 67 (46-116) U/L Troponin I (0.000-0.056) ng/mL Total Protein 7.0 (6.4-8.2) g/dL Albumin 3.1 L (3.4-5.0) g/dL Globulin 3.9 (2.6-4.0) g/dL Albumin/Globulin Ratio 0.8 L (0.9-1.6) Lipase (73-393) U/L Med Orders - Current: Current Medications Acetaminophen (Tylenol) 650 mg PO Q4H PRN PRN Reason: Pain (Mild 1-3)/fever Last Admin: 12/25/18 09:01 Dose: 650 mg Albuterol/Ipratropium (Duoneb 3.0-0.5 Mg/3 Ml) 3 ml NEB Q4HRRT PRN PRN Reason: Shortness Of Breath/wheezing Alprazolam (Xanax) 0.5 mg PO BID PRN PRN Reason: Anxiety Aspirin (Aspirin) 81 mg PO DAILY [facility] Last Admin: 12/25/18 09:01 Dose: 81 mg Bisacodyl (Dulcolax) 5 mg PO DAILY PRN PRN Reason: Constipation Furosemide (Lasix) 40 mg PO BID [facility] Last Admin: 12/25/18 09:03 Dose: 40 mg Heparin Sodium (Porcine) (Heparin Sodium) 5,000 units SUBCUT Q8H [facility] Last Admin: 12/25/18 06:34 Dose: 5,000 units Insulin Aspart (Novolog) 0 unit SUBCUT TIDAC [facility]; Protocol Last Admin: 12/25/18 07:58 Dose: Not Given Metoprolol Tartrate (Lopressor) 25 mg PO BID [facility] Last Admin: 12/25/18 09:05 Dose: Not Given Morphine Sulfate (Morphine) 2 mg IVPUSH Q2H PRN PRN Reason: Pain (severe 7-10) Stop: 12/25/18 14:19 Last Admin: 12/25/18 02:42 Dose: 2 mg Nitroglycerin (Nitrostat) 0.4 mg SL Q5M PRN PRN Reason: Chest Pain Nystatin (Nystatin Crm) 1 gm TOP BID [facility] Last Admin: 12/25/18 09:04 Dose: 1 applic Olmesartan (Benicar) 40 mg PO DAILY [facility] Last Admin: 12/25/18 09:04 Dose: 40 mg Ondansetron HCl (Zofran Odt) 4 mg PO Q4H PRN PRN Reason: nausea, able to take PO Ondansetron HCl (Zofran) 4 mg IVPUSH Q4H PRN PRN Reason: Nausea Oxybutynin Chloride (Oxybutynin) 5 mg PO BID [facility] Last Admin: 12/25/18 09:03 Dose: 5 mg Pantoprazole Sodium (Protonix) 40 mg PO DAILY [facility] Last Admin: 12/25/18 09:03 Dose: 40 mg Polyethylene Glycol (Miralax) 17 gm PO DAILY PRN PRN Reason: Constipation Rosuvastatin Calcium (Crestor) 40 mg PO DAILY [facility] Sodium Chloride (Saline Flush) 10 ml FLUSH ASDIRECTED PRN PRN Reason: Keep Vein Open Last Admin: 12/24/18 13:41 Dose: 10 ml Sodium Chloride (Saline Flush) 2.5 ml FLUSH ASDIRECTED PRN PRN Reason: Keep Vein Open Last Admin: 12/24/18 13:42 Dose: 2.5 ml Sucralfate (Carafate) 1 gm PO TIDAC [facility] Last Admin: 12/25/18 06:35 Dose: 1 gm Discontinued Medications Al Hydroxide/Mg Hydroxide 15 (ml/ Lidocaine HCl 5 ml) 0 ml PO ONETIME ONE Stop: 12/24/18 13:36 Last Admin: 12/24/18 13:41 Dose: 20 each Enoxaparin Sodium (Lovenox) 40 mg SUBCUT Q24H [facility] Last Admin: 12/24/18 15:22 Dose: Not Given Ibuprofen (Motrin) 600 mg PO Q6H PRN PRN Reason: Pain (mild 1-3) Influenza Virus Vaccine (Pharmacy To Dose - Influenza Vaccine) 1 each IM ONETIME ONE Stop: 12/24/18 17:03 Influenza Virus Vaccine (Fluzone High-Dose Syringe) 180 mcg IM .ONCE ONE Stop: 12/24/18 17:16 Ketorolac Tromethamine (Toradol) 15 mg IV Q6H PRN PRN Reason: Pain (moderate 4-6) Last Admin: 12/24/18 16:06 Dose: 15 mg Non-Formulary Medication (Rosuvastatin [Crestor]) 40 mg PO DAILY [facility] Last Admin: 12/25/18 09:06 Dose: Not Given Sucralfate (Carafate) 1 gm PO ONETIME ONE Stop: 12/24/18 14:23 Last Admin: 12/24/18 15:23 Dose: 1 gm <Manjinder Ovalle - Last Filed: 12/25/18 20:41> Discharge Summary - Referral to Home Health Primary Care Physician: PCP Unobtainable - Patient Data Vitals - Most Recent: Last Vital Signs Temp 36.2 C 12/25/18 08:00 Pulse 55 L 12/25/18 08:00 Resp 20 12/25/18 08:00 BP 123/82 12/25/18 09:04 Pulse Ox 95 12/25/18 08:00 I&O - Last 24 hours: Intake & Output 12/25/18 12/25/18 12/25/18 06:59 14:59 22:59 Intake Total 1136 1000 Output Total 1000 1700 Balance 136 -700 Lab Results - Last 24 hrs: Laboratory Results - last 24 hr 12/25/18 12/25/18 12/25/18 Range/Units 00:55 05:00 05:00 WBC 6.45 (4.0-11.0) K/uL RBC 4.73 (4.30-5.90) M/uL Hgb 12.8 (12.0-16.0) g/dL Hct 40.4 (36.0-46.0) % MCV 85.4 (80.0-98.0) fL MCH 27.1 (27.0-32.0) pg MCHC 31.7 (31.0-37.0) g/dL RDW Std Deviation 51.4 (28.0-62.0) fl RDW Coeff of Shu 16 H (11.0-15.0) % Plt Count 168 (150-400) K/uL MPV 11.90 (7.40-12.00) fL Neut % (Auto) 42.6 L (48.0-80.0) % Lymph % (Auto) 45.0 H (16.0-40.0) % [place] % (Auto) 7.6 (0.0-15.0) % Eos % (Auto) 4.2 (0.0-7.0) % Baso % (Auto) 0.6 (0.0-1.5) % Neut # (Auto) 2.8 (1.4-5.7) K/uL Lymph # (Auto) 2.9 H (0.6-2.4) K/uL [place] # (Auto) 0.5 (0.0-0.8) K/uL Eos # (Auto) 0.3 (0.0-0.7) K/uL Baso # (Auto) 0.0 (0.0-0.1) K/uL Nucleated RBC % 0.0 /100WBC Nucleated RBCs # 0 K/uL Sodium 143 (136-145) mmol/L Potassium 4.2 (3.5-5.1) mmol/L Chloride 105 (98-107) mmol/L Carbon Dioxide 32.4 H (21.0-32.0) mmol/L BUN 22 H (7.0-18.0) mg/dL Creatinine 1.2 H (0.6-1.0) mg/dL Est Cr Clr Drug Dosing 35.52 mL/min Estimated GFR (MDRD) 43.9 ml/min Glucose 92 (74-106) mg/dL POC Glucose (60-110) mg/dL Calcium 9.0 (8.5-10.1) mg/dL Total Bilirubin 0.6 (0.2-1.0) mg/dL AST 15 (15-37) IU/L ALT 14 (14-63) IU/L Alkaline Phosphatase 67 (46-116) U/L Troponin I < 0.050 (0.000-0.056) ng/mL Total Protein 7.0 (6.4-8.2) g/dL Albumin 3.1 L (3.4-5.0) g/dL Globulin 3.9 (2.6-4.0) g/dL Albumin/Globulin Ratio 0.8 L (0.9-1.6) 12/25/18 12/25/18 Range/Units 06:53 11:44 WBC (4.0-11.0) K/uL RBC (4.30-5.90) M/uL Hgb (12.0-16.0) g/dL Hct (36.0-46.0) % MCV (80.0-98.0) fL MCH (27.0-32.0) pg MCHC (31.0-37.0) g/dL RDW Std Deviation (28.0-62.0) fl RDW Coeff of Shu (11.0-15.0) % Plt Count (150-400) K/uL MPV (7.40-12.00) fL Neut % (Auto) (48.0-80.0) % Lymph % (Auto) (16.0-40.0) % [place] % (Auto) (0.0-15.0) % Eos % (Auto) (0.0-7.0) % Baso % (Auto) (0.0-1.5) % Neut # (Auto) (1.4-5.7) K/uL Lymph # (Auto) (0.6-2.4) K/uL [place] # (Auto) (0.0-0.8) K/uL Eos # (Auto) (0.0-0.7) K/uL Baso # (Auto) (0.0-0.1) K/uL Nucleated RBC % /100WBC Nucleated RBCs # K/uL Sodium (136-145) mmol/L Potassium (3.5-5.1) mmol/L Chloride (98-107) mmol/L Carbon Dioxide (21.0-32.0) mmol/L BUN (7.0-18.0) mg/dL Creatinine (0.6-1.0) mg/dL Est Cr Clr Drug Dosing mL/min Estimated GFR (MDRD) ml/min Glucose (74-106) mg/dL POC Glucose 89 92 (60-110) mg/dL Calcium (8.5-10.1) mg/dL Total Bilirubin (0.2-1.0) mg/dL AST (15-37) IU/L ALT (14-63) IU/L Alkaline Phosphatase (46-116) U/L Troponin I (0.000-0.056) ng/mL Total Protein (6.4-8.2) g/dL Albumin (3.4-5.0) g/dL Globulin (2.6-4.0) g/dL Albumin/Globulin Ratio (0.9-1.6) Med Orders - Current: Current Medications Discontinued Medications Acetaminophen (Tylenol) 650 mg PO Q4H PRN PRN Reason: Pain (Mild 1-3)/fever Last Admin: 12/25/18 09:01 Dose: 650 mg Albuterol/Ipratropium (Duoneb 3.0-0.5 Mg/3 Ml) 3 ml NEB Q4HRRT PRN PRN Reason: Shortness Of Breath/wheezing Alprazolam (Xanax) 0.5 mg PO BID PRN PRN Reason: Anxiety Aspirin (Aspirin) 81 mg PO DAILY [facility] Last Admin: 12/25/18 09:01 Dose: 81 mg Bisacodyl (Dulcolax) 5 mg PO DAILY PRN PRN Reason: Constipation Al Hydroxide/Mg Hydroxide 15 (ml/ Lidocaine HCl 5 ml) 0 ml PO ONETIME ONE Stop: 12/24/18 13:36 Last Admin: 12/24/18 13:41 Dose: 20 each Enoxaparin Sodium (Lovenox) 40 mg SUBCUT Q24H [facility] Last Admin: 12/24/18 15:22 Dose: Not Given Furosemide (Lasix) 40 mg PO BID [facility] Last Admin: 12/25/18 09:03 Dose: 40 mg Heparin Sodium (Porcine) (Heparin Sodium) 5,000 units SUBCUT Q8H [facility] Last Admin: 12/25/18 06:34 Dose: 5,000 units Ibuprofen (Motrin) 600 mg PO Q6H PRN PRN Reason: Pain (mild 1-3) Influenza Virus Vaccine (Pharmacy To Dose - Influenza Vaccine) 1 each IM ONETIME ONE Stop: 12/24/18 17:03 Influenza Virus Vaccine (Fluzone High-Dose 2018- Syringe) 180 mcg IM .ONCE ONE Stop: 12/24/18 17:16 Last Admin: 12/25/18 12:28 Dose: 180 mcg Insulin Aspart (Novolog) 0 unit SUBCUT TIDAC [facility]; Protocol Last Admin: 12/25/18 11:45 Dose: Not Given Ketorolac Tromethamine (Toradol) 15 mg IV Q6H PRN PRN Reason: Pain (moderate 4-6) Last Admin: 12/24/18 16:06 Dose: 15 mg Metoprolol Tartrate (Lopressor) 25 mg PO BID [facility] Last Admin: 12/25/18 09:05 Dose: Not Given Morphine Sulfate (Morphine) 2 mg IVPUSH Q2H PRN PRN Reason: Pain (severe 7-10) Stop: 12/25/18 14:19 Last Admin: 12/25/18 02:42 Dose: 2 mg Nitroglycerin (Nitrostat) 0.4 mg SL Q5M PRN PRN Reason: Chest Pain Non-Formulary Medication (Rosuvastatin [Crestor]) 40 mg PO DAILY [facility] Last Admin: 12/25/18 09:06 Dose: Not Given Nystatin (Nystatin Crm) 1 gm TOP BID [facility] Last Admin: 12/25/18 09:04 Dose: 1 applic Olmesartan (Benicar) 40 mg PO DAILY [facility] Last Admin: 12/25/18 09:04 Dose: 40 mg Ondansetron HCl (Zofran Odt) 4 mg PO Q4H PRN PRN Reason: nausea, able to take PO Ondansetron HCl (Zofran) 4 mg IVPUSH Q4H PRN PRN Reason: Nausea Oxybutynin Chloride (Oxybutynin) 5 mg PO BID [facility] Last Admin: 12/25/18 09:03 Dose: 5 mg Pantoprazole Sodium (Protonix) 40 mg PO DAILY [facility] Last Admin: 12/25/18 09:03 Dose: 40 mg Polyethylene Glycol (Miralax) 17 gm PO DAILY PRN PRN Reason: Constipation Rosuvastatin Calcium (Crestor) 40 mg PO DAILY [facility] Sodium Chloride (Saline Flush) 10 ml FLUSH ASDIRECTED PRN PRN Reason: Keep Vein Open Last Admin: 12/24/18 13:41 Dose: 10 ml Sodium Chloride (Saline Flush) 2.5 ml FLUSH ASDIRECTED PRN PRN Reason: Keep Vein Open Last Admin: 12/24/18 13:42 Dose: 2.5 ml Sucralfate (Carafate) 1 gm PO ONETIME ONE Stop: 12/24/18 14:23 Last Admin: 12/24/18 15:23 Dose: 1 gm Sucralfate (Carafate) 1 gm PO TIDAC [facility] Last Admin: 12/25/18 11:45 Dose: 1 gm - Free Text/Narrative Note: I have seen and evaluated the patient with the resident. I have discussed findings and treatment plan with the resident. I agree with the assessment and plan outlined in the following note.
== END 2018-12-25 12:40 | disposition home or self-care (01) ==
LOC: MW.ED 13:04 → UNDOADMOB 13:58 → MW.MS 13:58
PROVIDERS: ADMIT Internal Medicine; ATTEND Internal Medicine
DX: R07.2 Precordial pain (principal); I25.10 Atherosclerotic heart disease of native coronary artery without angina pectoris; I13.0 Hypertensive heart and chronic kidney disease with heart failure and stage 1 through stage 4 chronic kidney disease, or unspecified chronic kidney disease; I50.9 Heart failure, unspecified; E10.22 Type 1 diabetes mellitus with diabetic chronic kidney disease; N18.3 Chronic kidney disease, stage 3 (moderate); F41.9 Anxiety disorder, unspecified; F32.9 Major depressive disorder, single episode, unspecified; M47.9 Spondylosis, unspecified; E66.01 Morbid (severe) obesity due to excess calories; Z79.899 Other long term (current) drug therapy; Z79.82 Long term (current) use of aspirin; Z91.048 Other nonmedicinal substance allergy status; Z68.43 Body mass index [BMI] 50.0-59.9, adult
CPT/HCPCS: 36415; 71045; 80053; 82962; 83690; 84484; 85025; 90662; 93005; A9270; G0008; J1644; J1885; J2270; 96372; 96374; 96375; 96376; 99285-25; G0378

== ENCOUNTER 2019-01-31 10:24 | Observation (INO) | payer MEDICARE, MEDICAID ==
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
[2019-01-31] MEDS: Sodium Chloride 0.9% 1,000 ML IV SCH ×2 (11:22→19:46)
[2019-01-31 11:27] LABS: BLOOD UREA NITROGEN,BUN 33 mg/dL (7.0-18.0); CARBON DIOXIDE,CO2 26.4 mmol/L (21.0-32.0); CHLORIDE,CL 103 mmol/L (98-107); GLUCOSE RANDOM 106 mg/dL (74-106); POTASSIUM,K 4.2 mmol/L (3.5-5.1); SODIUM,NA 139 mmol/L (136-145)
--- NOTE | 2019-01-31 11:29 | CR ---
Chest: AP view of the chest was obtained. Comparison: Previous chest x-ray of 09/21/16. Heart size is slightly enlarged. Lungs are clear with no acute parenchymal change. Bony structures are grossly intact. Impression: 1. Nothing acute is seen on AP chest x-ray. Diagnostic code #1 This report was dictated in [place] Standard Time
--- NOTE | 2019-01-31 11:29 | CT ---
Head CT Technique: Multiple axial sections through the brain were obtained. Intravenous contrast was not utilized. Comparison: No prior intracranial imaging. Findings: Ventricles along with basal cisterns and sulci over the convexities appear within normal limits for the patient's age. No abnormal parenchymal densities are seen. No evidence of intracranial hemorrhage. No midline shift or mass effect is seen. Mucosal thickening is seen within the right maxillary sinus. Mastoid sinuses are clear. No acute calvarial abnormality is seen. Incidental note of hyperostosis internal frontalis. Impression: 1. Findings as noted above believed to be chronic. 2. Nothing acute is appreciated on noncontrast head CT exam. Diagnostic code #2
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
[2019-01-31] MEDS ORDERED: Acetaminophen 325 MG Tab PO ONE (17:53)
[2019-01-31] MEDS ORDERED: Nitroglycerin 0.4 MG Tab.SL SL PRN (19:00)
[2019-01-31] MEDS: Oxybutynin 5 MG Tab PO SCH (21:02)
[2019-01-31] MEDS: Pramipexole 0.25 MG Tab PO SCH (21:02)
[2019-01-31] MEDS: Docusate Sodium 100 MG Cap PO SCH (21:04)
[2019-01-31] MEDS ORDERED: Morphine 2 MG/ML Syringe IVPUSH ONE (22:50)
[2019-02-01] MEDS: Omeprazole 20 MG Cap.CR PO SCH (06:32)
[2019-02-01 06:34] LABS: CARBON DIOXIDE,CO2 26.1 mmol/L (21.0-32.0); POTASSIUM,K 4.2 mmol/L (3.5-5.1)
[2019-02-01] MEDS: Sertraline 100 MG Tab PO SCH (08:01)
[2019-02-01] MEDS: Oxybutynin 5 MG Tab PO SCH ×2 (08:02→20:22)
[2019-02-01] MEDS: Docusate Sodium 100 MG Cap PO SCH ×2 (08:02→20:22)
[2019-02-01] MEDS: Potassium Chloride 10 MEQ Tab.ER PO SCH (08:02)
[2019-02-01] MEDS: Clopidogrel 75 MG Tab PO SCH (08:02)
[2019-02-01] MEDS: Sucralfate 1 GM Tab PO SCH ×3 (08:03→16:53)
[2019-02-01] MEDS: Rosuvastatin 10 MG Tab PO SCH (08:03)
[2019-02-01] MEDS ORDERED: Acetaminophen 325 MG Tab PO ONE (09:16)
[2019-02-01] MEDS: Isosorbide Mononitrate 30 MG Tab.ER PO SCH (10:17)
[2019-02-01] MEDS: Olmesartan 20 MG Tab PO SCH (10:17)
[2019-02-01] MEDS: Fluticasone Propionate Nasal Spray 16 GM Bottle NASBOTH SCH (12:14)
[2019-02-01] MEDS: Metoprolol Succinate 25 MG Tab.ER PO SCH (12:14)
[2019-02-01] MEDS: Acetaminophen/HYDROcodone 325-7.5 MG Tab PO PRN ×3 (12:19→22:20)
--- NOTE | 2019-02-01 12:37 | PCM.PN ---
<Rachel Young - Last Filed: 02/01/19 12:28> - General Info Date of Service: 02/01/19 Subjective Update: Seen at bedside; endorsing some sinus congestion and mild tension headache. Still endorsing some feelings of fatigue and "off balance" when trying to move around. Denies any acute pain including chest pain or abdominal pain. - Review of Systems General: Reports: Fatigue. Denies: Weakness HEENT: Reports: Headaches, Post Nasal Drip, Sinus Congestion. Denies: Sore Throat Pulmonary: Denies: Shortness of Breath, Cough Cardiovascular: Reports: Dyspnea on Exertion. Denies: Chest Pain, Palpitations Gastrointestinal: Denies: Abdominal Pain, Constipation, Decreased Appetite, Diarrhea, Nausea, Vomiting Genitourinary: Denies: Dysuria Musculoskeletal: Reports: Back Pain Neurological: Reports: Headache - Patient Data Vitals - Most Recent: Last Vital Signs Temp 98.4 F 02/01/19 12:10 Pulse 82 02/01/19 12:14 Resp 18 02/01/19 12:10 BP 127/66 02/01/19 12:14 Pulse Ox 97 02/01/19 12:10 Orthostatic Blood Pressure [ 113/58 Standing] Orthostatic Blood Pressure [ 124/58 Sitting] Orthostatic Blood Pressure [ 132/61 Supine] Weight - Most Recent: 134.082 kg I&O - Last 24 Hours: Intake & Output 01/31/19 02/01/19 02/01/19 22:59 06:59 14:59 Intake Total 1284 1500 600 Output Total 100 1050 Balance 1184 450 600 Lab Results Last 24 Hours: Laboratory Results - last 24 hr 01/31/19 01/31/19 01/31/19 Range/Units 10:47 14:00 17:01 WBC (4.0-11.0) K/uL RBC (4.30-5.90) M/uL Hgb (12.0-16.0) g/dL Hct (36.0-46.0) % MCV (80.0-98.0) fL MCH (27.0-32.0) pg MCHC (31.0-37.0) g/dL RDW Std Deviation (28.0-62.0) fl RDW Coeff of Shu (11.0-15.0) % Plt Count (150-400) K/uL MPV (7.40-12.00) fL Neut % (Auto) (48.0-80.0) % Lymph % (Auto) (16.0-40.0) % [place] % (Auto) (0.0-15.0) % Eos % (Auto) (0.0-7.0) % Baso % (Auto) (0.0-1.5) % Neut # (Auto) (1.4-5.7) K/uL Lymph # (Auto) (0.6-2.4) K/uL [place] # (Auto) (0.0-0.8) K/uL Eos # (Auto) (0.0-0.7) K/uL Baso # (Auto) (0.0-0.1) K/uL Sodium (136-145) mmol/L Potassium (3.5-5.1) mmol/L Chloride (98-107) mmol/L Carbon Dioxide (21.0-32.0) mmol/L BUN (7.0-18.0) mg/dL Creatinine (0.6-1.0) mg/dL Est Cr Clr Drug Dosing mL/min Estimated GFR (MDRD) ml/min Glucose (74-106) mg/dL Calcium (8.5-10.1) mg/dL Total Bilirubin (0.2-1.0) mg/dL AST (15-37) IU/L ALT (14-63) IU/L Alkaline Phosphatase (46-116) U/L Troponin I < 0.050 (0.000-0.056) ng/mL Total Protein (6.4-8.2) g/dL Albumin (3.4-5.0) g/dL Globulin (2.6-4.0) g/dL Albumin/Globulin Ratio (0.9-1.6) TSH 3rd Generation 1.55 (0.36-3.74) uIU/mL Urine Color YELLOW Urine Appearance HAZY Urine pH 5.5 (5.0-8.0) Ur Specific [place] 1.020 (1.001-1.035) Urine Protein NEGATIVE (NEGATIVE) mg/dL Urine Glucose (UA) NEGATIVE (NEGATIVE) mg/dL Urine Ketones NEGATIVE (NEGATIVE) mg/dL Urine Occult Blood NEGATIVE (NEGATIVE) Urine Nitrite NEGATIVE (NEGATIVE) Urine Bilirubin NEGATIVE (NEGATIVE) Urine Urobilinogen 0.2 (<2.0) EU/dL Ur Leukocyte Esterase SMALL H (NEGATIVE) Urine RBC 0-1 (0-2/HPF) Urine WBC 3-5 (0-5/HPF) Ur Epithelial Cells FEW (NONE-FEW) Urine Bacteria FEW (NEGATIVE) Hyaline Casts 0-2 (0-2/LPF) Urine Mucus LIGHT (NONE-MOD) 01/31/19 02/01/19 02/01/19 Range/Units 22:01 05:47 05:47 WBC 7.76 (4.0-11.0) K/uL RBC 4.45 (4.30-5.90) M/uL Hgb 12.6 (12.0-16.0) g/dL Hct 36.5 (36.0-46.0) % MCV 82.0 (80.0-98.0) fL MCH 28.3 (27.0-32.0) pg MCHC 34.5 (31.0-37.0) g/dL RDW Std Deviation 50.3 (28.0-62.0) fl RDW Coeff of Shu 17 H (11.0-15.0) % Plt Count 141 L (150-400) K/uL MPV 12.00 (7.40-12.00) fL Neut % (Auto) 60.8 (48.0-80.0) % Lymph % (Auto) 25.1 (16.0-40.0) % [place] % (Auto) 10.6 (0.0-15.0) % Eos % (Auto) 3.2 (0.0-7.0) % Baso % (Auto) 0.3 (0.0-1.5) % Neut # (Auto) 4.7 (1.4-5.7) K/uL Lymph # (Auto) 2.0 (0.6-2.4) K/uL [place] # (Auto) 0.8 (0.0-0.8) K/uL Eos # (Auto) 0.3 (0.0-0.7) K/uL Baso # (Auto) 0.0 (0.0-0.1) K/uL Sodium 143 (136-145) mmol/L Potassium 4.2 (3.5-5.1) mmol/L Chloride 109 H (98-107) mmol/L Carbon Dioxide 26.1 (21.0-32.0) mmol/L BUN 25 H (7.0-18.0) mg/dL Creatinine 1.2 H (0.6-1.0) mg/dL Est Cr Clr Drug Dosing 35.52 mL/min Estimated GFR (MDRD) 43.9 ml/min Glucose 103 (74-106) mg/dL Calcium 9.3 (8.5-10.1) mg/dL Total Bilirubin 0.4 (0.2-1.0) mg/dL AST 11 L (15-37) IU/L ALT 14 (14-63) IU/L Alkaline Phosphatase 67 (46-116) U/L Troponin I < 0.050 (0.000-0.056) ng/mL Total Protein 7.0 (6.4-8.2) g/dL Albumin 3.3 L (3.4-5.0) g/dL Globulin 3.7 (2.6-4.0) g/dL Albumin/Globulin Ratio 0.9 (0.9-1.6) TSH 3rd Generation (0.36-3.74) uIU/mL Urine Color Urine Appearance Urine pH (5.0-8.0) Ur Specific [place] (1.001-1.035) Urine Protein (NEGATIVE) mg/dL Urine Glucose (UA) (NEGATIVE) mg/dL Urine Ketones (NEGATIVE) mg/dL Urine Occult Blood (NEGATIVE) Urine Nitrite (NEGATIVE) Urine Bilirubin (NEGATIVE) Urine Urobilinogen (<2.0) EU/dL Ur Leukocyte Esterase (NEGATIVE) Urine RBC (0-2/HPF) Urine WBC (0-5/HPF) Ur Epithelial Cells (NONE-FEW) Urine Bacteria (NEGATIVE) Hyaline Casts (0-2/LPF) Urine Mucus (NONE-MOD) Med Orders - Current: Current Medications Hydrocodone Bitart/Acetaminophen ([place] 325-7.5 Mg) 1 tab PO Q4H PRN PRN Reason: Pain Last Admin: 02/01/19 12:19 Dose: 1 tab Clopidogrel Bisulfate (Plavix) 75 mg PO DAILY [facility] Last Admin: 02/01/19 08:02 Dose: 75 mg Docusate Sodium (Colace) 100 mg PO BID [facility] Last Admin: 02/01/19 08:02 Dose: 100 mg Fluticasone Propionate (Flonase) 1 gm NASBOTH DAILY [facility] Last Admin: 02/01/19 12:14 Dose: 1 gm Isosorbide Mononitrate (Imdur) 30 mg PO DAILY [facility] Last Admin: 02/01/19 10:17 Dose: 30 mg Metoprolol Succinate (Toprol Xl) 25 mg PO DAILY [facility] Last Admin: 02/01/19 12:14 Dose: 25 mg Nitroglycerin (Nitrostat) 0.4 mg SL ASDIRECTED PRN PRN Reason: Chest Pain Olmesartan (Benicar) 40 mg PO DAILY [facility] Last Admin: 02/01/19 10:17 Dose: 40 mg Omeprazole (Omeprazole) 20 mg PO ACBREAKFAST [facility] Last Admin: 02/01/19 06:32 Dose: 20 mg Oxybutynin Chloride (Oxybutynin) 5 mg PO BID [facility] Last Admin: 02/01/19 08:02 Dose: 5 mg Potassium Chloride (Klor-Con 10) 10 meq PO DAILY [facility] Last Admin: 02/01/19 08:02 Dose: 10 meq Pramipexole Dihydrochloride (Mirapex) 1.5 mg PO BEDTIME [facility] Last Admin: 01/31/19 21:02 Dose: 1.5 mg Rosuvastatin Calcium (Crestor) 40 mg PO DAILY [facility] Last Admin: 02/01/19 08:03 Dose: 40 mg Sertraline HCl (Zoloft) 100 mg PO DAILY [facility] Last Admin: 02/01/19 08:01 Dose: 100 mg Sucralfate (Carafate) 1 gm PO TIDMEALS [facility] Last Admin: 02/01/19 12:15 Dose: 1 gm Discontinued Medications Acetaminophen (Tylenol) 650 mg PO NOW ONE Stop: 01/31/19 17:54 Last Admin: 01/31/19 18:03 Dose: 650 mg Acetaminophen (Tylenol) 650 mg PO NOW ONE Stop: 02/01/19 09:17 Last Admin: 02/01/19 09:43 Dose: 650 mg Sodium Chloride (Normal Saline) 1,000 mls @ 125 mls/hr IV STAT [facility] Last Admin: 01/31/19 19:46 Dose: 125 mls/hr Morphine Sulfate (Morphine) 2 mg IVPUSH ONETIME ONE Stop: 01/31/19 22:51 Last Admin: 01/31/19 23:15 Dose: 2 mg - Exam General: Alert, Oriented HEENT: EOMI, Mucous Membr. Moist/[place] Neck: Supple, Trachea Midline Lungs: Clear to Auscultation, Normal Respiratory Effort Cardiovascular: Regular Rate, Regular Rhythm GI/Abdominal Exam: Soft, Non-Tender Back Exam: Full Range of Motion Skin: Warm, Dry, Intact Neurological: No New Focal Deficit Psy/Mental Status: Alert, Normal Mood Physical Findings Comments:: obese female Sepsis Event Note - Evaluation Sepsis Screening Result: No Definite Risk - Focused Exam Vital Signs: Vital Signs Temp Pulse Pulse Resp BP BP BP 02/01/19 12:14 82 127/66 02/01/19 12:10 98.4 F 78 18 127/66 02/01/19 10:17 132/61 02/01/19 10:08 98.4 F 67 16 132/61 02/01/19 07:56 97.9 F 67 19 105/48 L 02/01/19 05:13 61 20 02/01/19 04:47 98.2 F 66 23 H 119/58 L 02/01/19 00:55 96.8 F 65 20 119/58 L Pulse Ox 02/01/19 12:14 02/01/19 12:10 97 02/01/19 10:17 02/01/19 10:08 95 02/01/19 07:56 95 02/01/19 05:13 95 02/01/19 04:47 92 L 02/01/19 00:55 90 L Date Exam was Performed: 02/01/19 Time Exam was Performed: 12:28 - Problem List Review Problem List Initiated/Reviewed/Updated: Yes - My Orders Last 24 Hours: My Active Orders 01/31/19 13:12 Code Status [Resuscitation Status] Routine 01/31/19 13:13 Antiembolic Devices [RC] PER UNIT ROUTINE SCD [Sequential Compression Device] [OM.PC] Routine 01/31/19 13:47 Up With Assistance [RC] ASDIRECTED 01/31/19 13:48 Echo Comp wo Cont [US] Urgent 01/31/19 19:00 Nitroglycerin [Nitrostat] 0.4 mg SL ASDIRECTED PRN 01/31/19 21:00 Docusate Sodium [Colace] 100 mg PO BID Oxybutynin 5 mg PO BID Pramipexole [Mirapex] 1.5 mg PO BEDTIME 01/31/19 Dinner Heart Healthy Diet [DIET] 02/01/19 07:30 Omeprazole 20 mg PO ACBREAKFAST 02/01/19 08:00 Sucralfate [Carafate] 1 gm PO TIDMEALS 02/01/19 09:00 Clopidogrel [Plavix] 75 mg PO DAILY Isosorbide Mononitrate [Imdur] 30 mg PO DAILY Olmesartan [Benicar] 40 mg PO DAILY Potassium Chloride [Klor-Con 10] 10 meq PO DAILY Rosuvastatin [Crestor] 40 mg PO DAILY Sertraline [Zoloft] 100 mg PO DAILY - Plan Plan:: Assessment: 1. Witnessed presyncopal episodes 2. Past medical history of hypertension/ coronary artery disease /CKD stage III /obesity. Plan Admit to observation. CPR yes; intubation no. DVT prophylaxis; SCDs. GI prophylaxis: Omeprazole. Activity: Up with assistance. 1. Presyncope: unsure of etiology at this time: Most likely secondary to increased beta-blockade secondary to findings on orthostatic vitals. Will hold beta-samra medication metoprolol at this time; will also hold patient's Lasix as she may be volume down. No reports of echo confirmed: We will order a echocardiogram. Continue to monitor patient on telemetry. Initial EKG was normal sinus rhythm without any arrhythmias. Trend troponin Q 6hrs secondary to exertional dyspnea. TSH ordered. Recent Lipid profile from last month unremarkable. Labs reassuring chemistries within normal limits we will continue to monitor in the a.m. 2. Past medical history: Continue home medications except for metoprolol and Lasix. 3. She understood plan. All questions answered. 02-01-2019 Echo report pending Metoprolol succinate 25 mg initiated (home does of metoprolol discontinued) ; repeat orthostatics WNL. Furosemide restarted. Physical therapy /OT ordered :evaluate for ambulation and desaturations: concern for obesity hypoventilation syndrome vs other etiologies. Flonase started for nasal congestion; also some concern for opioid withdrawal; will restart home opioid therapy for chronic pain. Troponin negative Continue to monitor today <Chris Romero - Last Filed: 02/03/19 11:17> - Patient Data Vitals - Most Recent: Last Vital Signs Temp 36.6 C 02/03/19 08:18 Pulse 63 02/03/19 08:18 Resp 18 02/03/19 08:18 BP 128/62 02/03/19 08:35 Pulse Ox 93 L 02/03/19 08:18 Orthostatic Blood Pressure [ 113/58 Standing] Orthostatic Blood Pressure [ 124/58 Sitting] Orthostatic Blood Pressure [ 132/61 Supine] I&O - Last 24 Hours: Intake & Output 02/02/19 02/03/19 02/03/19 22:59 06:59 14:59 Intake Total 800 700 Output Total 725 650 Balance 75 50 Lab Results Last 24 Hours: Laboratory Results - last 24 hr 02/02/19 02/03/19 02/03/19 Range/Units 11:54 06:10 06:10 WBC 7.33 (4.0-11.0) K/uL RBC 4.48 (4.30-5.90) M/uL Hgb 12.1 (12.0-16.0) g/dL Hct 38.2 (36.0-46.0) % MCV 85.3 (80.0-98.0) fL MCH 27.0 (27.0-32.0) pg MCHC 31.7 (31.0-37.0) g/dL RDW Std Deviation 55.7 (28.0-62.0) fl RDW Coeff of Shu 18 H (11.0-15.0) % Plt Count 161 (150-400) K/uL MPV 11.50 (7.40-12.00) fL Neut % (Auto) 55.5 (48.0-80.0) % Lymph % (Auto) 29.5 (16.0-40.0) % [place] % (Auto) 9.4 (0.0-15.0) % Eos % (Auto) 5.2 (0.0-7.0) % Baso % (Auto) 0.4 (0.0-1.5) % Neut # (Auto) 4.1 (1.4-5.7) K/uL Lymph # (Auto) 2.2 (0.6-2.4) K/uL [place] # (Auto) 0.7 (0.0-0.8) K/uL Eos # (Auto) 0.4 (0.0-0.7) K/uL Baso # (Auto) 0.0 (0.0-0.1) K/uL Nucleated RBC % 0.0 /100WBC Nucleated RBCs # 0 K/uL Sodium 143 (136-145) mmol/L Potassium 4.7 (3.5-5.1) mmol/L Chloride 109 H (98-107) mmol/L Carbon Dioxide 29.8 (21.0-32.0) mmol/L BUN 14 (7.0-18.0) mg/dL Creatinine 1.1 H (0.6-1.0) mg/dL Est Cr Clr Drug Dosing 38.75 mL/min Estimated GFR (MDRD) 48.6 ml/min Glucose 99 (74-106) mg/dL Calcium 9.4 (8.5-10.1) mg/dL Total Bilirubin 0.3 (0.2-1.0) mg/dL AST 11 L (15-37) IU/L ALT 13 L (14-63) IU/L Alkaline Phosphatase 63 (46-116) U/L Troponin I < 0.050 (0.000-0.056) ng/mL Total Protein 6.8 (6.4-8.2) g/dL Albumin 3.2 L (3.4-5.0) g/dL Globulin 3.6 (2.6-4.0) g/dL Albumin/Globulin Ratio 0.9 (0.9-1.6) Chad Results Last 24 Hours: Microbiology 02/02/19 14:40 Influenza Type A Antigen Screen - Final Nasopharyngeal Swab NEGATIVE INFLUENZA A VIRUS AG REFERENCE RANGE: NEGATIVE Influenza Type B Antigen Screen - Final NEGATIVE INFLUENZA B VIRUS AG REFERENCE RANGE: NEGATIVE 01/31/19 14:00 Urine Culture - Final Urine, Clean Catch MIXED JACOBO >100,000 CFU/ML Med Orders - Current: Current Medications Hydrocodone Bitart/Acetaminophen ([place] 325-7.5 Mg) 1 tab PO Q4H PRN PRN Reason: Pain Last Admin: 02/03/19 06:18 Dose: 1 tab Amoxicillin/Clavulanate Potassium (Augmentin 875 Mg/125 Mg) 1 tab PO Q12HR [facility] Clopidogrel Bisulfate (Plavix) 75 mg PO DAILY [facility] Last Admin: 02/03/19 08:35 Dose: 75 mg Docusate Sodium (Colace) 100 mg PO BID [facility] Last Admin: 02/03/19 08:35 Dose: 100 mg Fluticasone Propionate (Flonase) 1 gm NASBOTH DAILY [facility] Last Admin: 02/03/19 08:37 Dose: 1 gm Isosorbide Mononitrate (Imdur) 30 mg PO DAILY [facility] Last Admin: 02/03/19 08:35 Dose: 30 mg Metoprolol Succinate (Toprol Xl) 12.5 mg PO DAILY [facility] Nitroglycerin (Nitrostat) 0.4 mg SL ASDIRECTED PRN PRN Reason: Chest Pain Olmesartan (Benicar) 40 mg PO DAILY [facility] Last Admin: 02/03/19 08:22 Dose: 40 mg Omeprazole (Omeprazole) 20 mg PO ACBREAKFAST [facility] Last Admin: 02/03/19 06:31 Dose: 20 mg Ondansetron HCl (Zofran Odt) 8 mg PO QID [facility] Last Admin: 02/03/19 06:31 Dose: 8 mg Oxybutynin Chloride (Oxybutynin) 5 mg PO BID [facility] Last Admin: 02/03/19 08:34 Dose: 5 mg Potassium Chloride (Klor-Con 10) 10 meq PO DAILY [facility] Last Admin: 02/03/19 08:34 Dose: 10 meq Pramipexole Dihydrochloride (Mirapex) 1.5 mg PO BEDTIME [facility] Last Admin: 02/02/19 20:18 Dose: 1.5 mg Rosuvastatin Calcium (Crestor) 40 mg PO DAILY [facility] Last Admin: 02/03/19 08:35 Dose: 40 mg Sertraline HCl (Zoloft) 100 mg PO DAILY [facility] Last Admin: 02/03/19 08:34 Dose: 100 mg Sodium Chloride ([place] Nasal [place]) 1 ml PAUL BID [facility] Last Admin: 02/03/19 08:36 Dose: 1 spray Sucralfate (Carafate) 1 gm PO TIDMEALS [facility] Last Admin: 02/03/19 08:33 Dose: 1 gm Discontinued Medications Acetaminophen (Tylenol) 650 mg PO NOW ONE Stop: 01/31/19 17:54 Last Admin: 01/31/19 18:03 Dose: 650 mg Acetaminophen (Tylenol) 650 mg PO NOW ONE Stop: 02/01/19 09:17 Last Admin: 02/01/19 09:43 Dose: 650 mg Azithromycin (Zithromax) 500 mg PO ONETIME ONE Stop: 02/03/19 09:31 Last Admin: 02/03/19 09:53 Dose: 500 mg Azithromycin (Zithromax) 250 mg PO DAILY [facility] Stop: 02/07/19 09:01 Famotidine (Pepcid) 20 mg IVPUSH ONETIME ONE Stop: 02/02/19 11:31 Last Admin: 02/02/19 11:42 Dose: 20 mg Sodium Chloride (Normal Saline) 1,000 mls @ 125 mls/hr IV STAT [facility] Last Admin: 01/31/19 19:46 Dose: 125 mls/hr Metoprolol Succinate (Toprol Xl) 25 mg PO DAILY [facility] Last Admin: 02/02/19 08:06 Dose: 25 mg Metoprolol Succinate (Toprol Xl) 12.5 mg PO DAILY [facility] Last Admin: 02/02/19 12:08 Dose: Not Given Morphine Sulfate (Morphine) 2 mg IVPUSH ONETIME ONE Stop: 01/31/19 22:51 Last Admin: 01/31/19 23:15 Dose: 2 mg Sepsis Event Note - Focused Exam Vital Signs: Vital Signs Temp Pulse Resp BP BP Pulse Ox 02/03/19 08:35 128/62 02/03/19 08:22 128/62 02/03/19 08:18 36.6 C 63 18 128/62 93 L 02/03/19 06:47 64 16 124/58 L 92 L 02/02/19 23:35 36.9 C 58 L 18 105/55 L 94 L Date Exam was Performed: 02/03/19 Time Exam was Performed: 11:17 - Problem List & Annotations (1) Syncope SNOMED Code(s): 404052315 Code(s): R55 - SYNCOPE AND COLLAPSE Status: Acute Current Visit: Yes (2) Anxiety SNOMED Code(s): 40110291 Code(s): F41.9 - ANXIETY DISORDER, UNSPECIFIED Status: Acute Priority: Medium Current Visit: No (3) Back pain SNOMED Code(s): 414907254 Code(s): M54.9 - DORSALGIA, UNSPECIFIED Status: Acute Current Visit: No (4) CHF (congestive heart failure) SNOMED Code(s): 42302724 Code(s): I50.9 - HEART FAILURE, UNSPECIFIED Status: Acute Priority: Medium Current Visit: No (5) CKD (chronic kidney disease) stage 3, GFR 30-59 ml/min SNOMED Code(s): 868013243 Code(s): N18.3 - CHRONIC KIDNEY DISEASE, STAGE 3 (MODERATE) Status: Acute Priority: Medium Current Visit: No - Plan Plan:: I have seen and evaluated the patient and agree with the residents note unless specified in my note
[2019-02-01] MEDS: Pramipexole 0.25 MG Tab PO SCH (20:22)
[2019-02-02 06:07] LABS: CARBON DIOXIDE,CO2 28.8 mmol/L (21.0-32.0); POTASSIUM,K 4.2 mmol/L (3.5-5.1)
[2019-02-02] MEDS: Omeprazole 20 MG Cap.CR PO SCH (06:33)
[2019-02-02] MEDS: Potassium Chloride 10 MEQ Tab.ER PO SCH (08:02)
[2019-02-02] MEDS: Rosuvastatin 10 MG Tab PO SCH (08:02)
[2019-02-02] MEDS: Olmesartan 20 MG Tab PO SCH (08:02)
[2019-02-02] MEDS: Clopidogrel 75 MG Tab PO SCH (08:02)
[2019-02-02] MEDS: Sucralfate 1 GM Tab PO SCH ×3 (08:03→17:26)
[2019-02-02] MEDS: Sertraline 100 MG Tab PO SCH (08:03)
[2019-02-02] MEDS: Docusate Sodium 100 MG Cap PO SCH ×2 (08:03→20:17)
[2019-02-02] MEDS: Isosorbide Mononitrate 30 MG Tab.ER PO SCH (08:03)
[2019-02-02] MEDS: Oxybutynin 5 MG Tab PO SCH ×2 (08:03→20:18)
[2019-02-02] MEDS: Acetaminophen/HYDROcodone 325-7.5 MG Tab PO PRN ×3 (08:04→22:58)
[2019-02-02] MEDS: Metoprolol Succinate 25 MG Tab.ER PO SCH (08:06)
[2019-02-02] MEDS: Fluticasone Propionate Nasal Spray 16 GM Bottle NASBOTH SCH (08:07)
--- NOTE | 2019-02-02 09:38 | PCM.PN ---
<Rachel Young - Last Filed: 02/02/19 13:20> - General Info Date of Service: 02/02/19 Subjective Update: Patient seen at bedside: endorsing feeling weak and tired. Denies any acute pain and discomfort. AM update: during rounds patient had a sudden onset of non-bilious emesis; thereafter feeling better (Pepcid and Zofran were added as well) . Was able to ambulate with the help with physical therapy w/o reproduction of pain or severe hypoxia. Repeat Troponin and EKG performed; Troponin negative. CP resolved. Functional Status: Reports: Pain Controlled - Review of Systems General: Denies: Fever, Weakness, Fatigue HEENT: Reports: Headaches, Post Nasal Drip, Sinus Congestion. Denies: Sore Throat Pulmonary: Denies: Shortness of Breath, Cough Cardiovascular: Reports: Dyspnea on Exertion. Denies: Chest Pain, Palpitations Gastrointestinal: Denies: Abdominal Pain, Constipation, Diarrhea Genitourinary: Reports: No Symptoms Musculoskeletal: Reports: Back Pain Neurological: Reports: Headache - Patient Data Vitals - Most Recent: Last Vital Signs Temp 98.2 F 02/02/19 07:59 Pulse 58 L 02/02/19 08:06 Resp 20 02/02/19 07:59 BP 150/70 H 02/02/19 08:06 Pulse Ox 98 02/02/19 07:59 Orthostatic Blood Pressure [ 113/58 Standing] Orthostatic Blood Pressure [ 124/58 Sitting] Orthostatic Blood Pressure [ 132/61 Supine] Weight - Most Recent: 135.034 kg I&O - Last 24 Hours: Intake & Output 02/01/19 02/02/19 02/02/19 22:59 06:59 14:59 Intake Total 1060 650 Output Total 700 800 Balance 360 -150 Lab Results Last 24 Hours: Laboratory Results - last 24 hr 02/02/19 02/02/19 Range/Units 05:37 05:37 WBC 7.33 (4.0-11.0) K/uL RBC 4.35 (4.30-5.90) M/uL Hgb 11.8 L (12.0-16.0) g/dL Hct 36.4 (36.0-46.0) % MCV 83.7 (80.0-98.0) fL MCH 27.1 (27.0-32.0) pg MCHC 32.4 (31.0-37.0) g/dL RDW Std Deviation 53.3 (28.0-62.0) fl RDW Coeff of Shu 17 H (11.0-15.0) % Plt Count 138 L (150-400) K/uL MPV 10.60 (7.40-12.00) fL Neut % (Auto) 55.7 (48.0-80.0) % Lymph % (Auto) 30.0 (16.0-40.0) % [place] % (Auto) 9.8 (0.0-15.0) % Eos % (Auto) 4.1 (0.0-7.0) % Baso % (Auto) 0.4 (0.0-1.5) % Neut # (Auto) 4.1 (1.4-5.7) K/uL Lymph # (Auto) 2.2 (0.6-2.4) K/uL [place] # (Auto) 0.7 (0.0-0.8) K/uL Eos # (Auto) 0.3 (0.0-0.7) K/uL Baso # (Auto) 0.0 (0.0-0.1) K/uL Nucleated RBC % 0.0 /100WBC Nucleated RBCs # 0 K/uL Sodium 144 (136-145) mmol/L Potassium 4.2 (3.5-5.1) mmol/L Chloride 110 H (98-107) mmol/L Carbon Dioxide 28.8 (21.0-32.0) mmol/L BUN 18 (7.0-18.0) mg/dL Creatinine 1.2 H (0.6-1.0) mg/dL Est Cr Clr Drug Dosing 35.52 mL/min Estimated GFR (MDRD) 43.9 ml/min Glucose 102 (74-106) mg/dL Calcium 9.5 (8.5-10.1) mg/dL Total Bilirubin 0.3 (0.2-1.0) mg/dL AST 12 L (15-37) IU/L ALT 15 (14-63) IU/L Alkaline Phosphatase 69 (46-116) U/L Total Protein 6.7 (6.4-8.2) g/dL Albumin 3.0 L (3.4-5.0) g/dL Globulin 3.7 (2.6-4.0) g/dL Albumin/Globulin Ratio 0.8 L (0.9-1.6) Chad Results Last 24 Hours: Microbiology 01/31/19 14:00 Urine Culture - Final Urine, Clean Catch MIXED JACOBO >100,000 CFU/ML Med Orders - Current: Current Medications Hydrocodone Bitart/Acetaminophen ([place] 325-7.5 Mg) 1 tab PO Q4H PRN PRN Reason: Pain Last Admin: 02/02/19 08:04 Dose: 1 tab Clopidogrel Bisulfate (Plavix) 75 mg PO DAILY [facility] Last Admin: 02/02/19 08:02 Dose: 75 mg Docusate Sodium (Colace) 100 mg PO BID [facility] Last Admin: 02/02/19 08:03 Dose: 100 mg Fluticasone Propionate (Flonase) 1 gm NASBOTH DAILY [facility] Last Admin: 02/02/19 08:07 Dose: 1 gm Isosorbide Mononitrate (Imdur) 30 mg PO DAILY [facility] Last Admin: 02/02/19 08:03 Dose: 30 mg Metoprolol Succinate (Toprol Xl) 25 mg PO DAILY [facility] Last Admin: 02/02/19 08:06 Dose: 25 mg Nitroglycerin (Nitrostat) 0.4 mg SL ASDIRECTED PRN PRN Reason: Chest Pain Olmesartan (Benicar) 40 mg PO DAILY [facility] Last Admin: 02/02/19 08:02 Dose: 40 mg Omeprazole (Omeprazole) 20 mg PO ACBREAKFAST [facility] Last Admin: 02/02/19 06:33 Dose: 20 mg Oxybutynin Chloride (Oxybutynin) 5 mg PO BID [facility] Last Admin: 02/02/19 08:03 Dose: 5 mg Potassium Chloride (Klor-Con 10) 10 meq PO DAILY [facility] Last Admin: 02/02/19 08:02 Dose: 10 meq Pramipexole Dihydrochloride (Mirapex) 1.5 mg PO BEDTIME [facility] Last Admin: 02/01/19 20:22 Dose: 1.5 mg Rosuvastatin Calcium (Crestor) 40 mg PO DAILY [facility] Last Admin: 02/02/19 08:02 Dose: 40 mg Sertraline HCl (Zoloft) 100 mg PO DAILY [facility] Last Admin: 02/02/19 08:03 Dose: 100 mg Sucralfate (Carafate) 1 gm PO TIDMEALS [facility] Last Admin: 02/02/19 08:03 Dose: 1 gm Discontinued Medications Acetaminophen (Tylenol) 650 mg PO NOW ONE Stop: 01/31/19 17:54 Last Admin: 01/31/19 18:03 Dose: 650 mg Acetaminophen (Tylenol) 650 mg PO NOW ONE Stop: 02/01/19 09:17 Last Admin: 02/01/19 09:43 Dose: 650 mg Sodium Chloride (Normal Saline) 1,000 mls @ 125 mls/hr IV STAT [facility] Last Admin: 01/31/19 19:46 Dose: 125 mls/hr Morphine Sulfate (Morphine) 2 mg IVPUSH ONETIME ONE Stop: 01/31/19 22:51 Last Admin: 01/31/19 23:15 Dose: 2 mg - Exam General: Alert, Oriented, Cooperative HEENT: Pupils Equal, EOMI Neck: Supple Lungs: Clear to Auscultation, Normal Respiratory Effort Cardiovascular: Regular Rate, Regular Rhythm GI/Abdominal Exam: Soft, Non-Tender Back Exam: Full Range of Motion Skin: Warm, Dry Neurological: No New Focal Deficit Psy/Mental Status: Alert Sepsis Event Note - Evaluation Sepsis Screening Result: No Definite Risk - Focused Exam Vital Signs: Vital Signs Temp Pulse Pulse Resp BP BP Pulse Ox 02/02/19 08:06 58 L 150/70 H 02/02/19 08:03 150/70 H 02/02/19 08:02 150/70 H 02/02/19 07:59 98.2 F 57 L 20 150/70 H 98 02/02/19 04:00 98.4 F 65 19 136/63 93 L 02/02/19 00:00 97.7 F 58 L 18 146/66 H 93 L Date Exam was Performed: 02/02/19 Time Exam was Performed: 13:20 - Problem List Review Problem List Initiated/Reviewed/Updated: Yes - My Orders Last 24 Hours: My Active Orders 02/01/19 09:00 Clopidogrel [Plavix] 75 mg PO DAILY Isosorbide Mononitrate [Imdur] 30 mg PO DAILY Olmesartan [Benicar] 40 mg PO DAILY Potassium Chloride [Klor-Con 10] 10 meq PO DAILY Rosuvastatin [Crestor] 40 mg PO DAILY Sertraline [Zoloft] 100 mg PO DAILY 02/01/19 Dinner Heart Healthy Diet [DIET] - Plan Plan:: Assessment: 1. Witnessed presyncopal episodes 2. Past medical history of hypertension/ coronary artery disease /CKD stage III /obesity. Plan Admit to observation. CPR yes; intubation no. DVT prophylaxis; SCDs. GI prophylaxis: Omeprazole. Activity: Up with assistance. 1. Presyncope: unsure of etiology at this time: Most likely secondary to increased beta-blockade secondary to findings on orthostatic vitals. Will hold beta-samra medication metoprolol at this time; will also hold patient's Lasix as she may be volume down. No reports of echo confirmed: We will order a echocardiogram. Continue to monitor patient on telemetry. Initial EKG was normal sinus rhythm without any arrhythmias. Trend troponin Q 6hrs secondary to exertional dyspnea. TSH ordered. Recent Lipid profile from last month unremarkable. Labs reassuring chemistries within normal limits we will continue to monitor in the a.m. 2. Past medical history: Continue home medications except for metoprolol and Lasix. 3. She understood plan. All questions answered. 02-01-2019 Echo report pending Metoprolol succinate 12.5 mg nightly initiated (home does of metoprolol discontinued) ; repeat orthostatics WNL. Furosemide restarted. Physical therapy /OT ordered :pt. ambulated w. no desaturations:walking well w/ o issues or incidence Flonase started for nasal congestion; also some concern for opioid withdrawal; will restart home opioid therapy for chronic pain. Troponin negative (repeat troponin this AM was also negative after episode of emesis) Continue to monitor today <Chris Romero - Last Filed: 02/03/19 11:18> - Patient Data Vitals - Most Recent: Last Vital Signs Temp 36.6 C 02/03/19 08:18 Pulse 63 02/03/19 08:18 Resp 18 02/03/19 08:18 BP 128/62 02/03/19 08:35 Pulse Ox 93 L 02/03/19 08:18 Orthostatic Blood Pressure [ 113/58 Standing] Orthostatic Blood Pressure [ 124/58 Sitting] Orthostatic Blood Pressure [ 132/61 Supine] I&O - Last 24 Hours: Intake & Output 02/02/19 02/03/19 02/03/19 22:59 06:59 14:59 Intake Total 800 700 Output Total 725 650 Balance 75 50 Lab Results Last 24 Hours: Laboratory Results - last 24 hr 02/02/19 02/03/19 02/03/19 Range/Units 11:54 06:10 06:10 WBC 7.33 (4.0-11.0) K/uL RBC 4.48 (4.30-5.90) M/uL Hgb 12.1 (12.0-16.0) g/dL Hct 38.2 (36.0-46.0) % MCV 85.3 (80.0-98.0) fL MCH 27.0 (27.0-32.0) pg MCHC 31.7 (31.0-37.0) g/dL RDW Std Deviation 55.7 (28.0-62.0) fl RDW Coeff of Shu 18 H (11.0-15.0) % Plt Count 161 (150-400) K/uL MPV 11.50 (7.40-12.00) fL Neut % (Auto) 55.5 (48.0-80.0) % Lymph % (Auto) 29.5 (16.0-40.0) % [place] % (Auto) 9.4 (0.0-15.0) % Eos % (Auto) 5.2 (0.0-7.0) % Baso % (Auto) 0.4 (0.0-1.5) % Neut # (Auto) 4.1 (1.4-5.7) K/uL Lymph # (Auto) 2.2 (0.6-2.4) K/uL [place] # (Auto) 0.7 (0.0-0.8) K/uL Eos # (Auto) 0.4 (0.0-0.7) K/uL Baso # (Auto) 0.0 (0.0-0.1) K/uL Nucleated RBC % 0.0 /100WBC Nucleated RBCs # 0 K/uL Sodium 143 (136-145) mmol/L Potassium 4.7 (3.5-5.1) mmol/L Chloride 109 H (98-107) mmol/L Carbon Dioxide 29.8 (21.0-32.0) mmol/L BUN 14 (7.0-18.0) mg/dL Creatinine 1.1 H (0.6-1.0) mg/dL Est Cr Clr Drug Dosing 38.75 mL/min Estimated GFR (MDRD) 48.6 ml/min Glucose 99 (74-106) mg/dL Calcium 9.4 (8.5-10.1) mg/dL Total Bilirubin 0.3 (0.2-1.0) mg/dL AST 11 L (15-37) IU/L ALT 13 L (14-63) IU/L Alkaline Phosphatase 63 (46-116) U/L Troponin I < 0.050 (0.000-0.056) ng/mL Total Protein 6.8 (6.4-8.2) g/dL Albumin 3.2 L (3.4-5.0) g/dL Globulin 3.6 (2.6-4.0) g/dL Albumin/Globulin Ratio 0.9 (0.9-1.6) Chad Results Last 24 Hours: Microbiology 02/02/19 14:40 Influenza Type A Antigen Screen - Final Nasopharyngeal Swab NEGATIVE INFLUENZA A VIRUS AG REFERENCE RANGE: NEGATIVE Influenza Type B Antigen Screen - Final NEGATIVE INFLUENZA B VIRUS AG REFERENCE RANGE: NEGATIVE 01/31/19 14:00 Urine Culture - Final Urine, Clean Catch MIXED JACOBO >100,000 CFU/ML Med Orders - Current: Current Medications Hydrocodone Bitart/Acetaminophen ([place] 325-7.5 Mg) 1 tab PO Q4H PRN PRN Reason: Pain Last Admin: 02/03/19 06:18 Dose: 1 tab Amoxicillin/Clavulanate Potassium (Augmentin 875 Mg/125 Mg) 1 tab PO Q12HR [facility] Clopidogrel Bisulfate (Plavix) 75 mg PO DAILY [facility] Last Admin: 02/03/19 08:35 Dose: 75 mg Docusate Sodium (Colace) 100 mg PO BID [facility] Last Admin: 02/03/19 08:35 Dose: 100 mg Fluticasone Propionate (Flonase) 1 gm NASBOTH DAILY [facility] Last Admin: 02/03/19 08:37 Dose: 1 gm Isosorbide Mononitrate (Imdur) 30 mg PO DAILY [facility] Last Admin: 02/03/19 08:35 Dose: 30 mg Metoprolol Succinate (Toprol Xl) 12.5 mg PO DAILY [facility] Nitroglycerin (Nitrostat) 0.4 mg SL ASDIRECTED PRN PRN Reason: Chest Pain Olmesartan (Benicar) 40 mg PO DAILY [facility] Last Admin: 02/03/19 08:22 Dose: 40 mg Omeprazole (Omeprazole) 20 mg PO ACBREAKFAST [facility] Last Admin: 02/03/19 06:31 Dose: 20 mg Ondansetron HCl (Zofran Odt) 8 mg PO QID [facility] Last Admin: 02/03/19 06:31 Dose: 8 mg Oxybutynin Chloride (Oxybutynin) 5 mg PO BID [facility] Last Admin: 02/03/19 08:34 Dose: 5 mg Potassium Chloride (Klor-Con 10) 10 meq PO DAILY [facility] Last Admin: 02/03/19 08:34 Dose: 10 meq Pramipexole Dihydrochloride (Mirapex) 1.5 mg PO BEDTIME [facility] Last Admin: 02/02/19 20:18 Dose: 1.5 mg Rosuvastatin Calcium (Crestor) 40 mg PO DAILY [facility] Last Admin: 02/03/19 08:35 Dose: 40 mg Sertraline HCl (Zoloft) 100 mg PO DAILY [facility] Last Admin: 02/03/19 08:34 Dose: 100 mg Sodium Chloride ([place] Nasal [place]) 1 ml PAUL BID [facility] Last Admin: 02/03/19 08:36 Dose: 1 spray Sucralfate (Carafate) 1 gm PO TIDMEALS [facility] Last Admin: 02/03/19 08:33 Dose: 1 gm Discontinued Medications Acetaminophen (Tylenol) 650 mg PO NOW ONE Stop: 01/31/19 17:54 Last Admin: 01/31/19 18:03 Dose: 650 mg Acetaminophen (Tylenol) 650 mg PO NOW ONE Stop: 02/01/19 09:17 Last Admin: 02/01/19 09:43 Dose: 650 mg Azithromycin (Zithromax) 500 mg PO ONETIME ONE Stop: 02/03/19 09:31 Last Admin: 02/03/19 09:53 Dose: 500 mg Azithromycin (Zithromax) 250 mg PO DAILY [facility] Stop: 02/07/19 09:01 Famotidine (Pepcid) 20 mg IVPUSH ONETIME ONE Stop: 02/02/19 11:31 Last Admin: 02/02/19 11:42 Dose: 20 mg Sodium Chloride (Normal Saline) 1,000 mls @ 125 mls/hr IV STAT [facility] Last Admin: 01/31/19 19:46 Dose: 125 mls/hr Metoprolol Succinate (Toprol Xl) 25 mg PO DAILY [facility] Last Admin: 02/02/19 08:06 Dose: 25 mg Metoprolol Succinate (Toprol Xl) 12.5 mg PO DAILY [facility] Last Admin: 02/02/19 12:08 Dose: Not Given Morphine Sulfate (Morphine) 2 mg IVPUSH ONETIME ONE Stop: 01/31/19 22:51 Last Admin: 01/31/19 23:15 Dose: 2 mg Sepsis Event Note - Focused Exam Vital Signs: Vital Signs Temp Pulse Resp BP BP Pulse Ox 02/03/19 08:35 128/62 02/03/19 08:22 128/62 02/03/19 08:18 36.6 C 63 18 128/62 93 L 02/03/19 06:47 64 16 124/58 L 92 L 02/02/19 23:35 36.9 C 58 L 18 105/55 L 94 L Date Exam was Performed: 02/03/19 Time Exam was Performed: 11:18 - Problem List & Annotations (1) Syncope SNOMED Code(s): 265170030 Code(s): R55 - SYNCOPE AND COLLAPSE Status: Acute Current Visit: Yes (2) Anxiety SNOMED Code(s): 77356478 Code(s): F41.9 - ANXIETY DISORDER, UNSPECIFIED Status: Acute Priority: Medium Current Visit: No (3) Back pain SNOMED Code(s): 104531847 Code(s): M54.9 - DORSALGIA, UNSPECIFIED Status: Acute Current Visit: No (4) CHF (congestive heart failure) SNOMED Code(s): 63864919 Code(s): I50.9 - HEART FAILURE, UNSPECIFIED Status: Acute Priority: Medium Current Visit: No (5) CKD (chronic kidney disease) stage 3, GFR 30-59 ml/min SNOMED Code(s): 052391677 Code(s): N18.3 - CHRONIC KIDNEY DISEASE, STAGE 3 (MODERATE) Status: Acute Priority: Medium Current Visit: No - Plan Plan:: I have seen and evaluated the patient and agree with the residents note unless specified in my note
[2019-02-02] MEDS ORDERED: Metoprolol Succinate 25 MG Tab.ER PO SCH (11:05)
[2019-02-02] MEDS ORDERED: Famotidine 20 MG/2 ML SDV IVPUSH ONE (11:30)
[2019-02-02] MEDS: Ondansetron 8 MG Tab.DIS PO SCH ×3 (11:44→23:04)
--- NOTE | 2019-02-02 16:20 | ECHO ---
The echocardiogram report can be seen in this patient's EMR (Electronic Medical Record) in the REPORTS section. The echocardiogram report has also been scanned into PACS and can be seen there as well. KATELYNN
[2019-02-02] MEDS: Pramipexole 0.25 MG Tab PO SCH (20:18)
[2019-02-02] MEDS: Sodium Chloride 0.65% Nasal Spray 45 ML Bottle NAS SCH (20:18)
[2019-02-03] MEDS: Acetaminophen/HYDROcodone 325-7.5 MG Tab PO PRN (06:18)
[2019-02-03] MEDS: Ondansetron 8 MG Tab.DIS PO SCH ×2 (06:31→11:48)
[2019-02-03] MEDS: Omeprazole 20 MG Cap.CR PO SCH (06:31)
[2019-02-03 06:42] LABS: CARBON DIOXIDE,CO2 29.8 mmol/L (21.0-32.0); POTASSIUM,K 4.7 mmol/L (3.5-5.1)
[2019-02-03] MEDS: Olmesartan 20 MG Tab PO SCH (08:22)
[2019-02-03] MEDS: Sucralfate 1 GM Tab PO SCH ×2 (08:33→11:48)
[2019-02-03] MEDS: Oxybutynin 5 MG Tab PO SCH (08:34)
[2019-02-03] MEDS: Sertraline 100 MG Tab PO SCH (08:34)
[2019-02-03] MEDS: Potassium Chloride 10 MEQ Tab.ER PO SCH (08:34)
[2019-02-03] MEDS: Clopidogrel 75 MG Tab PO SCH (08:35)
[2019-02-03] MEDS: Rosuvastatin 10 MG Tab PO SCH (08:35)
[2019-02-03] MEDS: Isosorbide Mononitrate 30 MG Tab.ER PO SCH (08:35)
[2019-02-03] MEDS: Docusate Sodium 100 MG Cap PO SCH (08:35)
[2019-02-03] MEDS: Sodium Chloride 0.65% Nasal Spray 45 ML Bottle NAS SCH (08:36)
[2019-02-03] MEDS: Fluticasone Propionate Nasal Spray 16 GM Bottle NASBOTH SCH (08:37)
[2019-02-03] MEDS ORDERED: Azithromycin 250 MG Tab PO ONE (09:30)
--- NOTE | 2019-02-03 09:33 | PCM.PN ---
- General Info Date of Service: 02/03/19 Subjective Update: Patient is a 73-year-old female currently on day 3 of admission for presyncopal episodes: At bedside patient is still complaining of bilateral ear pressure and headache; mention she feels stronger and does not feel as dizzy as she did before. Denies any other complaints at this time. - Review of Systems General: Denies: Weakness, Fatigue HEENT: Reports: Headaches, Post Nasal Drip, Sinus Congestion. Denies: Sore Throat Pulmonary: Reports: Cough. Denies: Shortness of Breath, Sputum Cardiovascular: Denies: Chest Pain, Palpitations, Dyspnea on Exertion Gastrointestinal: Denies: Abdominal Pain, Constipation, Decreased Appetite, Diarrhea, Nausea, Vomiting Genitourinary: Reports: No Symptoms Musculoskeletal: Reports: Back Pain Neurological: Denies: Headache - Patient Data Vitals - Most Recent: Last Vital Signs Temp 97.8 F 02/03/19 08:18 Pulse 63 02/03/19 08:18 Resp 18 02/03/19 08:18 BP 128/62 02/03/19 08:35 Pulse Ox 93 L 02/03/19 08:18 Orthostatic Blood Pressure [ 113/58 Standing] Orthostatic Blood Pressure [ 124/58 Sitting] Orthostatic Blood Pressure [ 132/61 Supine] Weight - Most Recent: 296 lb 4.82 oz I&O - Last 24 Hours: Intake & Output 02/02/19 02/03/19 02/03/19 22:59 06:59 14:59 Intake Total 800 700 Output Total 725 650 Balance 75 50 Lab Results Last 24 Hours: Laboratory Results - last 24 hr 02/02/19 02/03/19 02/03/19 Range/Units 11:54 06:10 06:10 WBC 7.33 (4.0-11.0) K/uL RBC 4.48 (4.30-5.90) M/uL Hgb 12.1 (12.0-16.0) g/dL Hct 38.2 (36.0-46.0) % MCV 85.3 (80.0-98.0) fL MCH 27.0 (27.0-32.0) pg MCHC 31.7 (31.0-37.0) g/dL RDW Std Deviation 55.7 (28.0-62.0) fl RDW Coeff of Shu 18 H (11.0-15.0) % Plt Count 161 (150-400) K/uL MPV 11.50 (7.40-12.00) fL Neut % (Auto) 55.5 (48.0-80.0) % Lymph % (Auto) 29.5 (16.0-40.0) % [place] % (Auto) 9.4 (0.0-15.0) % Eos % (Auto) 5.2 (0.0-7.0) % Baso % (Auto) 0.4 (0.0-1.5) % Neut # (Auto) 4.1 (1.4-5.7) K/uL Lymph # (Auto) 2.2 (0.6-2.4) K/uL [place] # (Auto) 0.7 (0.0-0.8) K/uL Eos # (Auto) 0.4 (0.0-0.7) K/uL Baso # (Auto) 0.0 (0.0-0.1) K/uL Nucleated RBC % 0.0 /100WBC Nucleated RBCs # 0 K/uL Sodium 143 (136-145) mmol/L Potassium 4.7 (3.5-5.1) mmol/L Chloride 109 H (98-107) mmol/L Carbon Dioxide 29.8 (21.0-32.0) mmol/L BUN 14 (7.0-18.0) mg/dL Creatinine 1.1 H (0.6-1.0) mg/dL Est Cr Clr Drug Dosing 38.75 mL/min Estimated GFR (MDRD) 48.6 ml/min Glucose 99 (74-106) mg/dL Calcium 9.4 (8.5-10.1) mg/dL Total Bilirubin 0.3 (0.2-1.0) mg/dL AST 11 L (15-37) IU/L ALT 13 L (14-63) IU/L Alkaline Phosphatase 63 (46-116) U/L Troponin I < 0.050 (0.000-0.056) ng/mL Total Protein 6.8 (6.4-8.2) g/dL Albumin 3.2 L (3.4-5.0) g/dL Globulin 3.6 (2.6-4.0) g/dL Albumin/Globulin Ratio 0.9 (0.9-1.6) Chad Results Last 24 Hours: Microbiology 02/02/19 14:40 Influenza Type A Antigen Screen - Final Nasopharyngeal Swab NEGATIVE INFLUENZA A VIRUS AG REFERENCE RANGE: NEGATIVE Influenza Type B Antigen Screen - Final NEGATIVE INFLUENZA B VIRUS AG REFERENCE RANGE: NEGATIVE 01/31/19 14:00 Urine Culture - Final Urine, Clean Catch MIXED JACOBO >100,000 CFU/ML Med Orders - Current: Current Medications Hydrocodone Bitart/Acetaminophen ([place] 325-7.5 Mg) 1 tab PO Q4H PRN PRN Reason: Pain Last Admin: 02/03/19 06:18 Dose: 1 tab Azithromycin (Zithromax) 250 mg PO Q24H ONE Stop: 02/03/19 09:19 Clopidogrel Bisulfate (Plavix) 75 mg PO DAILY [facility] Last Admin: 02/03/19 08:35 Dose: 75 mg Docusate Sodium (Colace) 100 mg PO BID [facility] Last Admin: 02/03/19 08:35 Dose: 100 mg Fluticasone Propionate (Flonase) 1 gm NASBOTH DAILY [facility] Last Admin: 02/03/19 08:37 Dose: 1 gm Isosorbide Mononitrate (Imdur) 30 mg PO DAILY [facility] Last Admin: 02/03/19 08:35 Dose: 30 mg Metoprolol Succinate (Toprol Xl) 12.5 mg PO DAILY [facility] Nitroglycerin (Nitrostat) 0.4 mg SL ASDIRECTED PRN PRN Reason: Chest Pain Olmesartan (Benicar) 40 mg PO DAILY [facility] Last Admin: 02/03/19 08:22 Dose: 40 mg Omeprazole (Omeprazole) 20 mg PO ACBREAKFAST [facility] Last Admin: 02/03/19 06:31 Dose: 20 mg Ondansetron HCl (Zofran Odt) 8 mg PO QID [facility] Last Admin: 02/03/19 06:31 Dose: 8 mg Oxybutynin Chloride (Oxybutynin) 5 mg PO BID [facility] Last Admin: 02/03/19 08:34 Dose: 5 mg Potassium Chloride (Klor-Con 10) 10 meq PO DAILY [facility] Last Admin: 02/03/19 08:34 Dose: 10 meq Pramipexole Dihydrochloride (Mirapex) 1.5 mg PO BEDTIME [facility] Last Admin: 02/02/19 20:18 Dose: 1.5 mg Rosuvastatin Calcium (Crestor) 40 mg PO DAILY [facility] Last Admin: 02/03/19 08:35 Dose: 40 mg Sertraline HCl (Zoloft) 100 mg PO DAILY [facility] Last Admin: 02/03/19 08:34 Dose: 100 mg Sodium Chloride ([place] Nasal [place]) 1 ml PAUL BID [facility] Last Admin: 02/03/19 08:36 Dose: 1 spray Sucralfate (Carafate) 1 gm PO TIDMEALS [facility] Last Admin: 02/03/19 08:33 Dose: 1 gm Discontinued Medications Acetaminophen (Tylenol) 650 mg PO NOW ONE Stop: 01/31/19 17:54 Last Admin: 01/31/19 18:03 Dose: 650 mg Acetaminophen (Tylenol) 650 mg PO NOW ONE Stop: 02/01/19 09:17 Last Admin: 02/01/19 09:43 Dose: 650 mg Famotidine (Pepcid) 20 mg IVPUSH ONETIME ONE Stop: 02/02/19 11:31 Last Admin: 02/02/19 11:42 Dose: 20 mg Sodium Chloride (Normal Saline) 1,000 mls @ 125 mls/hr IV STAT [facility] Last Admin: 01/31/19 19:46 Dose: 125 mls/hr Metoprolol Succinate (Toprol Xl) 25 mg PO DAILY [facility] Last Admin: 02/02/19 08:06 Dose: 25 mg Metoprolol Succinate (Toprol Xl) 12.5 mg PO DAILY [facility] Last Admin: 02/02/19 12:08 Dose: Not Given Morphine Sulfate (Morphine) 2 mg IVPUSH ONETIME ONE Stop: 01/31/19 22:51 Last Admin: 01/31/19 23:15 Dose: 2 mg - Exam General: Alert, Oriented, Cooperative HEENT: Pupils Equal, EOMI, Other (b/l TM effusion/Dull ) Neck: Supple Lungs: Clear to Auscultation, Normal Respiratory Effort Cardiovascular: Regular Rate, Regular Rhythm GI/Abdominal Exam: Soft, Non-Tender Back Exam: Full Range of Motion Neurological: No New Focal Deficit, Normal Speech Psy/Mental Status: Alert, Normal Affect, Normal Mood Sepsis Event Note - Evaluation Sepsis Screening Result: No Definite Risk - Focused Exam Vital Signs: Vital Signs Temp Pulse Resp BP BP Pulse Ox 02/03/19 08:35 128/62 02/03/19 08:22 128/62 02/03/19 08:18 97.8 F 63 18 128/62 93 L 02/03/19 06:47 64 16 124/58 L 92 L 02/02/19 23:35 98.5 F 58 L 18 105/55 L 94 L Date Exam was Performed: 02/03/19 Time Exam was Performed: 09:27 - Problem List Review Problem List Initiated/Reviewed/Updated: Yes - My Orders Last 24 Hours: My Active Orders 02/02/19 11:03 Consult to Physical Therapy [PT Evaluation and Treatment] [CONS] Routine 02/02/19 12:00 Ondansetron [Zofran ODT] 8 mg PO QID 02/02/19 21:00 Sodium Chloride 0.65% [[place] Nasal [place]] 1 ml PAUL BID 02/03/19 09:18 Azithromycin [Zithromax] 250 mg PO Q24H ONE 02/03/19 21:05 Metoprolol Succinate [Toprol XL] 12.5 mg PO DAILY 02/03/19 Lunch Soft Diet [DIET] - Plan Plan:: Assessment: 1. Witnessed presyncopal episodes 2. Past medical history of hypertension/ coronary artery disease /CKD stage III /obesity. Plan Admit to observation. CPR yes; intubation no. DVT prophylaxis; SCDs. GI prophylaxis: Omeprazole. Activity: Up with assistance. 1. Presyncope: unsure of etiology at this time: Most likely secondary to increased beta-blockade secondary to findings on orthostatic vitals. Will hold beta-samra medication metoprolol at this time; will also hold patient's Lasix as she may be volume down. No reports of echo confirmed: We will order a echocardiogram. Continue to monitor patient on telemetry. Initial EKG was normal sinus rhythm without any arrhythmias. Trend troponin Q 6hrs secondary to exertional dyspnea. TSH ordered. Recent Lipid profile from last month unremarkable. Labs reassuring chemistries within normal limits we will continue to monitor in the a.m. 2. Past medical history: Continue home medications except for metoprolol and Lasix. 3. She understood plan. All questions answered. 02-01-2019 Echo report : no acute heart failure. EF of 60-65 % Metoprolol succinate 12.5 mg nightly initiated (home does of metoprolol discontinued) ; repeat orthostatics WNL. Furosemide restarted. Physical therapy /OT ordered :pt. ambulated w. no desaturations:walking well w/ o issues or incidence Flonase started for nasal congestion; also some concern for opioid withdrawal; will restart home opioid therapy for chronic pain. Since sinus infection / eustachian tube dysfunction is appreciated; will start Azithromycin; Troponin negative (repeat troponin this AM was also negative after episode of emesis) Continue to monitor today
[2019-02-03 12:17] VITALS: BP 100/53; PULSE 64
--- NOTE | 2019-02-03 14:26 | PCM.DCSUM1 ---
Discharge Summary - Hospital Course Free Text/Narrative:: Discharge summary Admission date January 31, 2019 Discharge date February 03, 2019 Admission diagnoses: Witnessed presyncopal episodes Past medical history of coronary artery disease, hypertension, hyperlipidemia, morbid obesity Discharge diagnoses: Witnessed presyncopal episodes B/l OM w. effusion Past medical history of coronary artery disease, hypertension, hyperlipidemia, morbid obesity Consultations: None Procedures: None Hospital course: Patient is a 73-year-old female with past medical history of coronary artery disease, hypertension, CKD stage III presenting to [facility] ED after having 2 syncopal episodes at an outpatient clinic. Patient has also been having similar symptoms at home where she would feel flushed and hot accompanied with dizziness thereafter x 1-week. Patient cannot think of any preceding symptoms or other acute signs. Patient denied any chest pain and shortness of breath; denied any vertigo. ED: Orthostatic vitals: Minimal increase in pulse rate. CT head negative. Chest x-ray negative. Urinalysis negative. Patient was given 1 L of fluids and endorsed feeling better. Admission: Metoprolol changed to succinate 12.5 mg nightly. Patient worked with PT and is able to ambulate well. On day 2 of admission however patient did develop acute onset vomiting. Which resolved with Zofran. Patient endorsed feeling much better better. Repeat troponin and EKG was within normal limits. ECHO: unremarkable for age. On day of discharge patient had a new complaint of bilateral ear pain; ear showed TM effusion/OM b/l. Patient was started on Flonase and sent home on Augmentin. Patient was stable and endorsed wanting to go home and feeling strong. Script for b/l carotid doppler written and given to patient. Discharge condition: Stable Disposition: Home - Discharge Data Discharge Date: 02/03/19 Discharge Disposition: Home, Self-Care 01 Condition: Stable - Referral to Home Health Primary Care Physician: PCP Unobtainable - Patient Summary/Data Consults: Consultations 02/02/19 11:03 Consult to Physical Therapy [PT Evaluation and Treatment] [CONS] Routine - Patient Instructions Diet: Heart Healthy Diet Driving: Do Not Drive Showering/Bathing: May Shower Notify Provider of: Fever, Increased Pain, Nausea and/or Vomiting - Discharge Plan *PRESCRIPTION DRUG MONITORING PROGRAM REVIEWED*: No *COPY OF PRESCRIPTION DRUG MONITORING REPORT IN PATIENT DIXON: No Prescriptions/Med Rec: Amoxicillin/Clavulanate K [Augmentin 875-125 MG] 1 tab PO Q12HR 14 Days #7 tablet Fluticasone Propionate [Flonase] 1 gm NASBOTH DAILY #1 bottle Metoprolol Succinate [Toprol XL] 12.5 mg PO BEDTIME 14 Days #14 tab.er Home Medications: Home Meds Furosemide 40 mg PO BID 11/08/14 [History] Nitroglycerin [Nitrostat] 0.4 mg SL ASDIRECTED PRN 11/08/14 [History] Oxybutynin Chloride 5 mg PO BID 11/08/14 [History] Rosuvastatin [Crestor] 40 mg PO DAILY 11/08/14 [History] Potassium Chloride 10 meq PO DAILY 05/22/15 [History] Docusate Sodium [Colace] 100 mg PO BID 05/12/18 [History] Olmesartan Medoxomil 40 mg PO DAILY 05/12/18 [History] Clopidogrel [Plavix] 75 mg PO DAILY 01/31/19 [History] Hydrocodone/Acetaminophen [Hydrocodon-Acetaminoph 7.5-325] 7.5 - 325 tab PO Q4H PRN 01/31/19 [History] Isosorbide Mononitrate [Isosorbide Mononitrate ER] 30 mg PO DAILY 01/31/19 [ History] Omeprazole 20 mg PO ACBREAKFAST 01/31/19 [History] Pramipexole Di-HCl [Pramipexole Dihydrochloride] 1.5 mg PO BEDTIME 01/31/19 [ History] Sertraline HCl [Zoloft] 100 mg PO DAILY 01/31/19 [History] Sucralfate [Carafate] 1 gm PO TIDMEALS 01/31/19 [History] Amoxicillin/Clavulanate K [Augmentin 875-125 MG] 1 tab PO Q12HR 14 Days #7 tablet 02/03/19 [Rx] Fluticasone Propionate [Flonase] 1 gm NASBOTH DAILY #1 bottle 02/03/19 [Rx] Metoprolol Succinate [Toprol XL] 12.5 mg PO BEDTIME 14 Days #14 tab.er 02/03/19 [Rx] Patient Handouts: Amoxicillin; Clavulanic Acid tablets, Metoprolol tablets, Fluticasone nasal spray, Near-Syncope, [id number] Referrals: Deeprasertkul,[place], MD [Physician] - 03/19/19 11:00 am Tavon Fregoso MD [Physician] - 02/15/19 10:00 am - Discharge Summary/Plan Comment DC Time >30 min.: No - Patient Data Vitals - Most Recent: Last Vital Signs Temp 98.1 F 02/03/19 12:16 Pulse 64 02/03/19 12:16 Resp 18 02/03/19 12:16 BP 100/53 L 02/03/19 12:16 Pulse Ox 94 L 02/03/19 12:16 Orthostatic Blood Pressure [ 113/58 Standing] Orthostatic Blood Pressure [ 124/58 Sitting] Orthostatic Blood Pressure [ 132/61 Supine] Weight - Most Recent: 296 lb 4.82 oz I&O - Last 24 hours: Intake & Output 02/02/19 02/03/19 02/03/19 22:59 06:59 14:59 Intake Total 800 700 Output Total 725 650 Balance 75 50 Lab Results - Last 24 hrs: Laboratory Results - last 24 hr 02/03/19 02/03/19 Range/Units 06:10 06:10 WBC 7.33 (4.0-11.0) K/uL RBC 4.48 (4.30-5.90) M/uL Hgb 12.1 (12.0-16.0) g/dL Hct 38.2 (36.0-46.0) % MCV 85.3 (80.0-98.0) fL MCH 27.0 (27.0-32.0) pg MCHC 31.7 (31.0-37.0) g/dL RDW Std Deviation 55.7 (28.0-62.0) fl RDW Coeff of Shu 18 H (11.0-15.0) % Plt Count 161 (150-400) K/uL MPV 11.50 (7.40-12.00) fL Neut % (Auto) 55.5 (48.0-80.0) % Lymph % (Auto) 29.5 (16.0-40.0) % [place] % (Auto) 9.4 (0.0-15.0) % Eos % (Auto) 5.2 (0.0-7.0) % Baso % (Auto) 0.4 (0.0-1.5) % Neut # (Auto) 4.1 (1.4-5.7) K/uL Lymph # (Auto) 2.2 (0.6-2.4) K/uL [place] # (Auto) 0.7 (0.0-0.8) K/uL Eos # (Auto) 0.4 (0.0-0.7) K/uL Baso # (Auto) 0.0 (0.0-0.1) K/uL Nucleated RBC % 0.0 /100WBC Nucleated RBCs # 0 K/uL Sodium 143 (136-145) mmol/L Potassium 4.7 (3.5-5.1) mmol/L Chloride 109 H (98-107) mmol/L Carbon Dioxide 29.8 (21.0-32.0) mmol/L BUN 14 (7.0-18.0) mg/dL Creatinine 1.1 H (0.6-1.0) mg/dL Est Cr Clr Drug Dosing 38.75 mL/min Estimated GFR (MDRD) 48.6 ml/min Glucose 99 (74-106) mg/dL Calcium 9.4 (8.5-10.1) mg/dL Total Bilirubin 0.3 (0.2-1.0) mg/dL AST 11 L (15-37) IU/L ALT 13 L (14-63) IU/L Alkaline Phosphatase 63 (46-116) U/L Total Protein 6.8 (6.4-8.2) g/dL Albumin 3.2 L (3.4-5.0) g/dL Globulin 3.6 (2.6-4.0) g/dL Albumin/Globulin Ratio 0.9 (0.9-1.6) FELA Results - Last 24 hrs: Microbiology 02/02/19 14:40 Influenza Type A Antigen Screen - Final Nasopharyngeal Swab NEGATIVE INFLUENZA A VIRUS AG REFERENCE RANGE: NEGATIVE Influenza Type B Antigen Screen - Final NEGATIVE INFLUENZA B VIRUS AG REFERENCE RANGE: NEGATIVE Med Orders - Current: Current Medications Hydrocodone Bitart/Acetaminophen ([place] 325-7.5 Mg) 1 tab PO Q4H PRN PRN Reason: Pain Last Admin: 02/03/19 06:18 Dose: 1 tab Amoxicillin/Clavulanate Potassium (Augmentin 875 Mg/125 Mg) 1 tab PO Q12HR [facility] Clopidogrel Bisulfate (Plavix) 75 mg PO DAILY [facility] Last Admin: 02/03/19 08:35 Dose: 75 mg Docusate Sodium (Colace) 100 mg PO BID [facility] Last Admin: 02/03/19 08:35 Dose: 100 mg Fluticasone Propionate (Flonase) 1 gm NASBOTH DAILY [facility] Last Admin: 02/03/19 08:37 Dose: 1 gm Isosorbide Mononitrate (Imdur) 30 mg PO DAILY [facility] Last Admin: 02/03/19 08:35 Dose: 30 mg Metoprolol Succinate (Toprol Xl) 12.5 mg PO DAILY [facility] Nitroglycerin (Nitrostat) 0.4 mg SL ASDIRECTED PRN PRN Reason: Chest Pain Olmesartan (Benicar) 40 mg PO DAILY [facility] Last Admin: 02/03/19 08:22 Dose: 40 mg Omeprazole (Omeprazole) 20 mg PO ACBREAKFAST [facility] Last Admin: 02/03/19 06:31 Dose: 20 mg Ondansetron HCl (Zofran Odt) 8 mg PO QID [facility] Last Admin: 02/03/19 11:48 Dose: 8 mg Oxybutynin Chloride (Oxybutynin) 5 mg PO BID [facility] Last Admin: 02/03/19 08:34 Dose: 5 mg Potassium Chloride (Klor-Con 10) 10 meq PO DAILY [facility] Last Admin: 02/03/19 08:34 Dose: 10 meq Pramipexole Dihydrochloride (Mirapex) 1.5 mg PO BEDTIME [facility] Last Admin: 02/02/19 20:18 Dose: 1.5 mg Rosuvastatin Calcium (Crestor) 40 mg PO DAILY [facility] Last Admin: 02/03/19 08:35 Dose: 40 mg Sertraline HCl (Zoloft) 100 mg PO DAILY [facility] Last Admin: 02/03/19 08:34 Dose: 100 mg Sodium Chloride ([place] Nasal [employer]) 1 ml PAUL BID [facility] Last Admin: 02/03/19 08:36 Dose: 1 spray Sucralfate (Carafate) 1 gm PO TIDMEALS [facility] Last Admin: 02/03/19 11:48 Dose: 1 gm Discontinued Medications Acetaminophen (Tylenol) 650 mg PO NOW ONE Stop: 01/31/19 17:54 Last Admin: 01/31/19 18:03 Dose: 650 mg Acetaminophen (Tylenol) 650 mg PO NOW ONE Stop: 02/01/19 09:17 Last Admin: 02/01/19 09:43 Dose: 650 mg Azithromycin (Zithromax) 500 mg PO ONETIME ONE Stop: 02/03/19 09:31 Last Admin: 02/03/19 09:53 Dose: 500 mg Azithromycin (Zithromax) 250 mg PO DAILY [facility] Stop: 02/07/19 09:01 Famotidine (Pepcid) 20 mg IVPUSH ONETIME ONE Stop: 02/02/19 11:31 Last Admin: 02/02/19 11:42 Dose: 20 mg Sodium Chloride (Normal Saline) 1,000 mls @ 125 mls/hr IV STAT [facility] Last Admin: 01/31/19 19:46 Dose: 125 mls/hr Metoprolol Succinate (Toprol Xl) 25 mg PO DAILY [facility] Last Admin: 02/02/19 08:06 Dose: 25 mg Metoprolol Succinate (Toprol Xl) 12.5 mg PO DAILY [facility] Last Admin: 02/02/19 12:08 Dose: Not Given Morphine Sulfate (Morphine) 2 mg IVPUSH ONETIME ONE Stop: 01/31/19 22:51 Last Admin: 01/31/19 23:15 Dose: 2 mg
[2019-02-03] MEDS ORDERED: Amoxicillin/Clavulanate K 875-125 MG Tab PO SCH (21:00)
[2019-02-03] MEDS ORDERED: Metoprolol Succinate 25 MG Tab.ER PO SCH (21:05)
[2019-02-04] MEDS ORDERED: Azithromycin 250 MG Tab PO SCH (09:00)
== END 2019-02-03 15:00 | disposition home or self-care (01) ==
LOC: MW.ED 10:24 → MW.MS 11:44
PROVIDERS: ADMIT Student in an Organized Health Care Education/Training Program; ATTEND Student in an Organized Health Care Education/Training Program
DX: R55 Syncope and collapse (principal); I25.10 Atherosclerotic heart disease of native coronary artery without angina pectoris; E78.5 Hyperlipidemia, unspecified; I13.0 Hypertensive heart and chronic kidney disease with heart failure and stage 1 through stage 4 chronic kidney disease, or unspecified chronic kidney disease; I50.9 Heart failure, unspecified; N18.3 Chronic kidney disease, stage 3 (moderate); E11.22 Type 2 diabetes mellitus with diabetic chronic kidney disease; F41.9 Anxiety disorder, unspecified; F32.9 Major depressive disorder, single episode, unspecified; E66.01 Morbid (severe) obesity due to excess calories; Z91.048 Other nonmedicinal substance allergy status; Z79.899 Other long term (current) drug therapy
CPT/HCPCS: 36415; 70450; 71045; 80053; 81001; 84443; 84484; 85025; 85610; 87086; 87804; 93005; 93306; 96361; 96374; 96375; 97161; 99285; A9270; G0378; J2270; J3490; J7030; 99284

== ENCOUNTER 2019-03-15 19:10 | Emergency (ER) | payer MEDICARE, MEDICAID ==
[2019-03-15] MEDS ORDERED: Sodium Chloride 0.9% 10 ML Syringe FLUSH PRN (19:21)
[2019-03-15] MEDS ORDERED: Ondansetron 4 MG/2 ML SDV IVPUSH ONE (19:21)
[2019-03-15] MEDS ORDERED: Ketorolac 30 MG/ML SDV IVPUSH ONE (19:21)
[2019-03-15] MEDS ORDERED: Sodium Chloride 0.9% 2.5 ML Syringe FLUSH PRN (19:21)
[2019-03-15] MEDS ORDERED: Hyoscyamine 0.125 MG Tab.SL SL ONE (19:22)
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
[2019-03-15] MEDS ORDERED: Sodium Chloride 0.9% 1,000 ML IV SCH (19:30)
[2019-03-15 20:23] LABS: POTASSIUM,K 3.5 mmol/L (3.5-5.1)
--- NOTE | 2019-03-15 21:14 | CT ---
Indication: Abdominal pain Technique: Nonenhanced axial CT imaging through the abdomen and pelvis. Sagittal and coronal reconstructions are provided. Comparison: None Findings: There is unremarkable noncontrast appearance of the liver, spleen, pancreas, and adrenal glands. Cholecystectomy clips are noted. There is normal renal parenchymal attenuation without hydronephrosis. There are no renal or ureteral stones. Multiple calcific densities in the pelvis are compatible with phleboliths. The stomach and duodenum are unremarkable. There are no abnormally dilated small bowel loops. The appendix is not visualized, presumably surgically absent. There is no colonic wall thickening. No inflammatory changes are demonstrated in the mesentery. There is no abdominal lymphadenopathy. There is normal caliber of the abdominal aorta. Mild degenerative changes are noted in the lumbar spine. The included lung bases are clear. Impression: No acute process demonstrated in the abdomen and pelvis. Please note that all CT scans at this facility use dose modulation, iterative reconstruction, and/or weight-based dosing when appropriate to reduce radiation dose to as low as reasonably achievable. Dictated by Juve Obrien MD @ Mar 15 2019 9:12PM Signed by Dr. Juve Obrien @ Mar 15 2019 9:12PM
[2019-03-15 22:00] VITALS: BP 120/73; PULSE 79
== END 2019-03-15 21:50 | disposition home or self-care (01) ==
LOC: MW.ED 19:10
DX: N39.0 Urinary tract infection, site not specified (principal); E11.22 Type 2 diabetes mellitus with diabetic chronic kidney disease; I13.0 Hypertensive heart and chronic kidney disease with heart failure and stage 1 through stage 4 chronic kidney disease, or unspecified chronic kidney disease; N18.3 Chronic kidney disease, stage 3 (moderate); I50.9 Heart failure, unspecified; E11.36 Type 2 diabetes mellitus with diabetic cataract; H26.9 Unspecified cataract; F32.9 Major depressive disorder, single episode, unspecified; F41.9 Anxiety disorder, unspecified; G25.81 Restless legs syndrome; E78.5 Hyperlipidemia, unspecified; E66.9 Obesity, unspecified; Z68.42 Body mass index [BMI] 45.0-49.9, adult; Z90.89 Acquired absence of other organs; Z90.49 Acquired absence of other specified parts of digestive tract; Z90.710 Acquired absence of both cervix and uterus; Z91.048 Other nonmedicinal substance allergy status; Z79.899 Other long term (current) drug therapy; Z79.02 Long term (current) use of antithrombotics/antiplatelets; Z86.73 Personal history of transient ischemic attack (TIA), and cerebral infarction without residual deficits
CPT/HCPCS: 36415; 74176; 80053; 81001; 82150; 83605; 83690; 85025; 87086; 93005; 96361; 96374; 96375; 99285; A9270; J1885; J2405; J7030; 99284

== ENCOUNTER 2019-05-29 07:46 | Emergency (ER) | payer MEDICARE, MEDICAID ==
[2019-05-29] MEDS ORDERED: Acetaminophen 325 MG Tab PO ONE (08:11)
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
--- NOTE | 2019-05-29 08:49 | CR ---
Right foot: 3 views of the right foot were obtained. Comparison: Prior right foot exam of 06/19/18. Mild deformity is seen within the shaft of the 4th metatarsal. This is most likely due to old healed fracture. Osteopenia is present. Bunion deformity is seen. Calcaneal spurs are again noted. No definite acute abnormality is appreciated. Impression: 1. Deformity involving the shaft of the 4th metatarsal. This is most likely due to old healed fracture. Please correlate that patient has no acute symptoms to this digit. 2. Osteopenia and bunion deformity as well as plantar spurs. 3. Nothing acute is definitely appreciated. Diagnostic code #3 This report was dictated in MDT
--- NOTE | 2019-05-29 08:49 | CR ---
Right ankle: 3 views of the right ankle were obtained. Comparison: No prior right ankle exam. Plantar spur is noted. Spur and calcification is noted at the attachment of the Achilles tendon to the calcaneus. Ankle mortise is symmetric. Minimal cortical avulsion fracture is noted off the distal tip of the medial malleolus. No additional bony abnormality is appreciated. Impression: 1. Small cortical avulsion fracture is felt to be present off the distal tip of the medial malleolus. 2. Calcaneal spurs. 3. No additional abnormality is seen. Diagnostic code #3 This report was dictated in MDT
[2019-05-29 09:46] VITALS: BP 137/59; PULSE 63
== END 2019-05-29 10:00 | disposition home or self-care (01) ==
LOC: MW.ED 07:46
DX: S82.51XA Displaced fracture of medial malleolus of right tibia, initial encounter for closed fracture (principal); S92.901A Unspecified fracture of right foot, initial encounter for closed fracture; I13.0 Hypertensive heart and chronic kidney disease with heart failure and stage 1 through stage 4 chronic kidney disease, or unspecified chronic kidney disease; E11.22 Type 2 diabetes mellitus with diabetic chronic kidney disease; N18.3 Chronic kidney disease, stage 3 (moderate); I50.9 Heart failure, unspecified; Z86.718 Personal history of other venous thrombosis and embolism; Z86.711 Personal history of pulmonary embolism; F32.9 Major depressive disorder, single episode, unspecified; F41.9 Anxiety disorder, unspecified; E66.9 Obesity, unspecified; Z68.42 Body mass index [BMI] 45.0-49.9, adult; Z86.73 Personal history of transient ischemic attack (TIA), and cerebral infarction without residual deficits; M19.90 Unspecified osteoarthritis, unspecified site; Z91.048 Other nonmedicinal substance allergy status; Z79.899 Other long term (current) drug therapy; Z79.02 Long term (current) use of antithrombotics/antiplatelets
CPT/HCPCS: 29505; 73610; 73630; 99284; A9270; 29515

== ENCOUNTER 2019-06-18 13:34 | Emergency (ER) | payer MEDICARE, MEDICAID ==
[2019-06-18] MEDS ORDERED: Sodium Chloride 0.9% 10 ML Syringe FLUSH PRN ×2 (13:35)
[2019-06-18] MEDS ORDERED: Sodium Chloride 0.9% 2.5 ML Syringe FLUSH PRN (13:35)
[2019-06-18] MEDS ORDERED: Ondansetron 4 MG/2 ML SDV IVPUSH ONE (13:36)
[2019-06-18] MEDS ORDERED: Morphine 4 MG/ML Syringe IVPUSH ONE ×2 (13:36→14:39)
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
[2019-06-18 14:10] LABS: BLOOD UREA NITROGEN,BUN 20 mg/dL (7.0-18.0); CARBON DIOXIDE,CO2 25.1 mmol/L (21.0-32.0); CHLORIDE,CL 107 mmol/L (98-107); GLUCOSE RANDOM 110 mg/dL (74-106); LIPASE 87 U/L (73-393); SODIUM,NA 142 mmol/L (136-145)
[2019-06-18] MEDS ORDERED: Nitroglycerin 0.4 MG Tab.SL SL ONE (14:40)
--- NOTE | 2019-06-18 14:41 | CR ---
Chest: AP view of the chest was obtained. Comparison: Prior chest x-ray of 01/31/19. Heart is slightly enlarged. Tortuous thoracic aorta is seen. Slight atelectasis is noted above the left hemidiaphragm. Lungs otherwise are clear. Scoliosis is noted within the spine. Degenerative change noted within the right shoulder. Impression: 1. Heart is slightly enlarged. 2. Other findings as noted above believed to be nonacute. Diagnostic code #2 This report was dictated in MDT
[2019-06-18] MEDS ORDERED: Iopamidol 755 MG/ML 200 ML Multipack Bottle IVPUSH STA (15:51)
--- NOTE | 2019-06-18 16:14 | CT ---
CT chest Technique: Multiple axial sections through the chest were obtained. Intravenous contrast was not utilized. Comparison: No prior chest CT is available, chest x-ray performed earlier on the same day is available. Findings: Pulmonary arteries are well opacified. No filling defects are seen to indicate pulmonary embolism. Aorta shows atherosclerotic calcification without aneurysm. Coronary artery calcification is seen. No pericardial thickening is seen. Lung window settings were reviewed. No acute parenchymal change is appreciated. No pleural effusions are seen. No pneumothorax is appreciated. Bone window settings were reviewed. No acute osseous finding is appreciated. Impression: 1. No findings of pulmonary embolism. 2. Nothing acute is appreciated on CT study of the chest. Diagnostic code #2 This report was dictated in MDT
[2019-06-18] MEDS ORDERED: Nitroglycerin 0.4 MG Tab.SL SL PRN (16:35)
[2019-06-18] MEDS ORDERED: Nitroglycerin 2% Oint 1 GM UD Packet TOP ONE (16:37)
[2019-06-18] MEDS ORDERED: Heparin Sod,Pork In 0.45% Nacl 25,000 UNIT/500 ML IV.SOLN IV SCH (17:00)
[2019-06-18 17:01] VITALS: BP 135/82; PULSE 45
== END 2019-06-18 18:22 ==
LOC: MW.ED 13:34
DX: I20.0 Unstable angina (principal); I13.0 Hypertensive heart and chronic kidney disease with heart failure and stage 1 through stage 4 chronic kidney disease, or unspecified chronic kidney disease; I50.9 Heart failure, unspecified; N18.3 Chronic kidney disease, stage 3 (moderate); E11.22 Type 2 diabetes mellitus with diabetic chronic kidney disease; E66.9 Obesity, unspecified; Z68.41 Body mass index [BMI] 40.0-44.9, adult; Z79.899 Other long term (current) drug therapy; Z91.048 Other nonmedicinal substance allergy status; Z79.02 Long term (current) use of antithrombotics/antiplatelets; Z86.73 Personal history of transient ischemic attack (TIA), and cerebral infarction without residual deficits
CPT/HCPCS: 36415; 71045; 71275; 80053; 82962; 83690; 84484; 85025; 85379; 85610; 85730; 93005; 96365; 96375; 96376; 99285; A9270; J1644; J2270; J2405; Q9967; 99284

== ENCOUNTER 2020-05-15 21:38 | Observation (INO) | payer MEDICARE, MEDICAID ==
[2020-05-15] MEDS ORDERED: Sodium Chloride 0.9% 250 ML IV SCH (22:00)
[2020-05-15] MEDS ORDERED: Alum Hydrox/Mag Hydrox/Simeth 15 ML, Lidocaine 2% 5 ML PO ONE ×2 (22:09)
[2020-05-15 22:20] LABS: BLOOD UREA NITROGEN,BUN 115 mg/dL (7.0-18.0); CARBON DIOXIDE,CO2 24.9 mmol/L (21.0-32.0); CHLORIDE,CL 102 mmol/L (98-107); GLUCOSE RANDOM 108 mg/dL (74-106); POTASSIUM,K 3.4 mmol/L (3.5-5.1); SODIUM,NA 139 mmol/L (136-145)
--- NOTE | 2020-05-15 22:35 | CR ---
Indication: Chest pain Technique: Chest 1 view Comparison: Chest x-ray 06/18/2019 Findings/Impression: Cardiovascular and mediastinum: Mild cardiomegaly with aortic tortuosity. Lungs and pleural space: No pleural effusion or pneumothorax. No focal consolidation. Bones and soft tissues: No acute findings. Dictated by Cuong Hurt MD @ May 15 2020 10:34PM Signed by Dr. Cuong Hurt @ May 15 2020 10:35PM
[2020-05-15] MEDS ORDERED: Sodium Chloride 0.9% 250 ML IV STA (23:50)
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
[2020-05-16] MEDS ORDERED: Potassium Chloride 20 MEQ Tab.ER PO ONE (07:40)
[2020-05-16 08:40] VITALS: BP 108/59; PULSE 60
[2020-05-16] MEDS ORDERED: Clopidogrel 75 MG Tab PO SCH (09:00)
== END 2020-05-16 13:00 | disposition home or self-care (01) ==
LOC: MW.ED 21:38 → MW.MS 05-16 01:49
PROVIDERS: ADMIT Internal Medicine; ATTEND Internal Medicine
DX: R07.9 Chest pain, unspecified (principal); I12.9 Hypertensive chronic kidney disease with stage 1 through stage 4 chronic kidney disease, or unspecified chronic kidney disease; I50.9 Heart failure, unspecified; N18.30 Chronic kidney disease, stage 3 unspecified; G47.33 Obstructive sleep apnea (adult) (pediatric); K21.9 Gastro-esophageal reflux disease without esophagitis; E78.5 Hyperlipidemia, unspecified; D64.9 Anemia, unspecified; E87.6 Hypokalemia; E83.41 Hypermagnesemia; R73.9 Hyperglycemia, unspecified; E66.9 Obesity, unspecified; Z68.45 Body mass index [BMI] 70 or greater, adult; Z20.822 Contact with and (suspected) exposure to COVID-19; Z91.09 Other allergy status, other than to drugs and biological substances; Z98.890 Other specified postprocedural states
CPT/HCPCS: 36415; 71045; 80048; 81001; 82962; 83735; 83880; 84439; 84443; 84484; 85025; 87086; 93005; 99285; A9270; J7050; U0002; 93010; 99283; G0378

== ENCOUNTER 2020-10-19 23:13 | Emergency (ER) | payer MEDICARE, MEDICAID ==
[2020-10-19] MEDS ORDERED: Sodium Chloride 0.9% 2.5 ML Syringe FLUSH PRN (23:38)
[2020-10-19] MEDS ORDERED: Sodium Chloride 0.9% 10 ML Syringe FLUSH PRN (23:38)
--- NOTE | 2020-10-20 00:14 | CR ---
HISTORY: Chest pain. COMPARISON: 05/15/2020. TECHNIQUE: Chest one-view portable. FINDINGS: Heart size and pulmonary vasculature are within normal limits. There is no acute airspace disease. There is no pneumothorax. The central airway is normal. The osseous structures are intact. IMPRESSION: No acute airspace disease. Dictated by Connor Rosen MD @ 10/20/2020 12:13:46 AM (Electronically Signed)
[2020-10-20 00:23] LABS: BLOOD UREA NITROGEN,BUN 59 mg/dL (7.0-18.0); CHLORIDE,CL 106 mmol/L (98-107); GLUCOSE RANDOM 109 mg/dL (74-106); POTASSIUM,K 3.8 mmol/L (3.5-5.1); SODIUM,NA 143 mmol/L (136-145)
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
[2020-10-20 03:36] VITALS: BP 101/62; PULSE 76
== END 2020-10-20 03:45 | disposition home or self-care (01) ==
LOC: MW.ED 23:13
DX: F41.9 Anxiety disorder, unspecified (principal); I11.0 Hypertensive heart disease with heart failure; I50.9 Heart failure, unspecified; E10.9 Type 1 diabetes mellitus without complications; E66.9 Obesity, unspecified; Z68.42 Body mass index [BMI] 45.0-49.9, adult; Z91.048 Other nonmedicinal substance allergy status; Z79.02 Long term (current) use of antithrombotics/antiplatelets; Z79.899 Other long term (current) drug therapy
CPT/HCPCS: 36415; 71045; 71045-26; 80053; 84484; 85025; 85379; 93005; 99285-25

== ENCOUNTER 2022-12-27 15:29 | Observation (INO) | payer MEDICARE, MEDICAID ==
[2022-12-27] MEDS ORDERED: Nystatin Topical Powder 15 GM Bottle TOP STA (15:51)
[2022-12-27 16:13] LABS: BASOPHILS ABSOLUTE AUTO 0.04 K/uL (0.00-0.20); BASOPHILS PERCENT AUTO 0.5 % (0.0-1.0); EOSINOPHILS ABSOLUTE AUTO 0.22 K/uL (0.00-0.45); EOSINOPHILS PERCENT AUTO 2.8 % (0.0-6.0); HEMATOCRIT 36.4 % (37.0-47.0); HEMOGLOBIN 12.5 g/dL (12.0-16.0); IMMATURE GRAN ABSOLUTE AUTO 0.02 K/uL (0.00-0.05); IMMATURE GRAN PERCENT AUTO 0.3 % (0.0-0.4); LYMPHOCYTES ABSOLUTE AUTO 2.27 K/uL (1.00-4.80); MEAN CORPUSCULAR HEMOGLOBIN 30.1 pg (28.0-32.0); MEAN CORPUSCULAR HGB CONC 34.3 g/dL (32.0-36.0); MEAN CORPUSCULAR VOLUME 87.7 fL (83.0-99.0); MONOCYTES ABSOLUTE AUTO 0.58 K/uL (0.00-0.80); MONOCYTES PERCENT AUTO 7.4 % (0.0-8.0); NEUTROPHILS ABSOLUTE AUTO 4.71 K/uL (1.80-7.70); PLATELET COUNT,PLT 162 K/uL (150-400); RED BLOOD CELL COUNT 4.15 M/uL (4.10-5.30); WHITE BLOOD CELL COUNT,WBC 7.84 K/uL (3.9-11.3)
[2022-12-27 16:42] LABS: CARBON DIOXIDE,CO2 28.7 mmol/L (21.0-32.0); CREATININE 0.9 mg/dL (0.6-1.0); POTASSIUM,K 4.1 mmol/L (3.5-5.1)
[2022-12-27 16:43] LABS: A/G RATIO 0.8 (0.9-1.6); ALBUMIN 2.9 g/dL (3.4-5.0); BILIRUBIN TOTAL 0.6 mg/dL (0.2-1.0); CALCIUM 9.6 mg/dL (8.5-10.1); EST CRCL DRUG DOSING (CG) 38.87 mL/min; PROTEIN TOTAL,TP 6.7 g/dL (6.4-8.2)
[2022-12-27 18:06] LABS: BILIRUBIN,URINE NEGATIVE (NEGATIVE); COLOR,URINE YELLOW; GLUCOSE,URINE NEGATIVE (NEGATIVE); KETONES,URINE NEGATIVE (NEGATIVE); LEUKOCYTE ESTERASE,URINE TRACE (NEGATIVE); NITRITE,URINE POSITIVE (NEGATIVE); OCCULT BLOOD,URINE NEGATIVE (NEGATIVE); PH,URINE 6.5 (5.0-8.0); PROTEIN,URINE NEGATIVE (NEGATIVE); UROBILINOGEN,URINE 0.2 EU/dL (<2.0)
[2022-12-27 18:12] LABS: APPEARANCE,URINE SLT CLOUDY
[2022-12-27 18:13] LABS: BACTERIA,URINE FEW (NEGATIVE); EPITHELIAL CELLS,URINE FEW (NONE-FEW); RBC,URINE 0-1 (0-2/HPF)
[2022-12-27] MEDS ORDERED: Ciprofloxacin in D5W 400 MG in Premix Bag 1 BAG IV STA ×2 (18:55)
[2022-12-27] MEDS ORDERED: metroNIDAZOLE/Normal Saline 500 MG in Premix Bag 1 BAG IV ONE (18:55)
[2022-12-27] MEDS ORDERED: Iopamidol 755 MG/ML 500 ML Multipack Bottle IVPUSH STA (19:04)
[2022-12-28] MEDS: Acetaminophen 325 MG Tab PO PRN ×3 (00:50→21:24)
[2022-12-28] MEDS: metroNIDAZOLE/Normal Saline 500 MG in Premix Bag 1 BAG IV SCH ×3 (02:00→19:00)
[2022-12-28] MEDS: Ciprofloxacin in D5W 400 MG in Premix Bag 1 BAG IV SCH ×4 (05:57→17:31)
[2022-12-28] MEDS: Nystatin Topical Powder 15 GM Bottle TOP SCH ×3 (05:58→21:27)
[2022-12-28 06:09] LABS: BASOPHILS ABSOLUTE AUTO 0.04 K/uL (0.00-0.20); BASOPHILS PERCENT AUTO 0.5 % (0.0-1.0); EOSINOPHILS ABSOLUTE AUTO 0.16 K/uL (0.00-0.45); EOSINOPHILS PERCENT AUTO 2.2 % (0.0-6.0); HEMOGLOBIN 12.7 g/dL (12.0-16.0); IMMATURE GRAN ABSOLUTE AUTO 0.03 K/uL (0.00-0.05); IMMATURE GRAN PERCENT AUTO 0.4 % (0.0-0.4); LYMPHOCYTES ABSOLUTE AUTO 2.22 K/uL (1.00-4.80); LYMPHOCYTES PERCENT AUTO 30.3 % (24.0-44.0); MEAN CORPUSCULAR HEMOGLOBIN 30.6 pg (28.0-32.0); MEAN CORPUSCULAR HGB CONC 35.3 g/dL (32.0-36.0); MEAN CORPUSCULAR VOLUME 86.7 fL (83.0-99.0); MEAN PLATELET VOLUME 11.5 fL (9.4-12.3); MONOCYTES ABSOLUTE AUTO 0.63 K/uL (0.00-0.80); MONOCYTES PERCENT AUTO 8.6 % (0.0-8.0); NEUTROPHILS ABSOLUTE AUTO 4.25 K/uL (1.80-7.70); PLATELET COUNT,PLT 154 K/uL (150-400); RED BLOOD CELL COUNT 4.15 M/uL (4.10-5.30); WHITE BLOOD CELL COUNT,WBC 7.33 K/uL (3.9-11.3)
[2022-12-28 06:34] LABS: CALCIUM 9.6 mg/dL (8.5-10.1); CARBON DIOXIDE,CO2 25.1 mmol/L (21.0-32.0); CREATININE 0.9 mg/dL (0.6-1.0); EST CRCL DRUG DOSING (CG) 38.87 mL/min; POTASSIUM,K 3.8 mmol/L (3.5-5.1)
[2022-12-28] MEDS ORDERED: OLMESARTAN MEDOXOMIL 40 MG PO SCH (09:00)
[2022-12-28] MEDS ORDERED: Clopidogrel 75 MG Tab PO SCH (09:00)
[2022-12-28] MEDS ORDERED: traMADol 50 MG Tab PO PRN (09:03)
[2022-12-28] MEDS ORDERED: Baclofen 10 MG Tab PO PRN (09:03)
[2022-12-28] MEDS: Metoprolol Tartrate 25 MG Tab PO SCH ×2 (09:54→20:45)
[2022-12-28] MEDS: Isosorbide Mononitrate 30 MG Tab.ER PO SCH (09:55)
[2022-12-28] MEDS ORDERED: Fluconazole 100 MG Tab PO ONE (10:00)
[2022-12-28] MEDS ORDERED: Magnesium Sulfate/Water 2 GM in Premix Bag 1 BAG IV ONE (11:04)
[2022-12-28] MEDS ORDERED: Potassium Chloride 20 MEQ Tab.ER PO ONE (11:04)
[2022-12-28] MEDS: PALIPERIDONE 6 MG PO SCH (11:28)
[2022-12-28] MEDS ORDERED: Pramipexole 0.25 MG Tab PO SCH (21:00)
[2022-12-28] MEDS ORDERED: Melatonin 3 MG Tab PO SCH (21:00)
[2022-12-28] MEDS ORDERED: Rosuvastatin 10 MG Tab PO SCH (21:00)
[2022-12-28] MEDS ORDERED: Metoprolol Tartrate 25 MG Tab PO SCH (21:00)
[2022-12-29] MEDS: metroNIDAZOLE/Normal Saline 500 MG in Premix Bag 1 BAG IV SCH ×2 (01:30→10:21)
[2022-12-29] MEDS: Ciprofloxacin in D5W 400 MG in Premix Bag 1 BAG IV SCH ×2 (06:26)
[2022-12-29 06:28] LABS: BASOPHILS ABSOLUTE AUTO 0.04 K/uL (0.00-0.20); BASOPHILS PERCENT AUTO 0.6 % (0.0-1.0); EOSINOPHILS ABSOLUTE AUTO 0.19 K/uL (0.00-0.45); EOSINOPHILS PERCENT AUTO 2.9 % (0.0-6.0); HEMATOCRIT 33.9 % (37.0-47.0); HEMOGLOBIN 11.7 g/dL (12.0-16.0); IMMATURE GRAN ABSOLUTE AUTO 0.04 K/uL (0.00-0.05); IMMATURE GRAN PERCENT AUTO 0.6 % (0.0-0.4); LYMPHOCYTES ABSOLUTE AUTO 2.05 K/uL (1.00-4.80); LYMPHOCYTES PERCENT AUTO 31.3 % (24.0-44.0); MEAN CORPUSCULAR HEMOGLOBIN 30.1 pg (28.0-32.0); MEAN CORPUSCULAR HGB CONC 34.5 g/dL (32.0-36.0); MEAN CORPUSCULAR VOLUME 87.1 fL (83.0-99.0); MEAN PLATELET VOLUME 11.6 fL (9.4-12.3); MONOCYTES ABSOLUTE AUTO 0.58 K/uL (0.00-0.80); MONOCYTES PERCENT AUTO 8.9 % (0.0-8.0); NEUTROPHILS ABSOLUTE AUTO 3.65 K/uL (1.80-7.70); NEUTROPHILS PERCENT AUTO 55.7 % (41.0-71.0); PLATELET COUNT,PLT 164 K/uL (150-400); RED BLOOD CELL COUNT 3.89 M/uL (4.10-5.30); WHITE BLOOD CELL COUNT,WBC 6.55 K/uL (3.9-11.3)
[2022-12-29 06:54] LABS: CALCIUM 9.6 mg/dL (8.5-10.1); CREATININE 1.1 mg/dL (0.6-1.0); EST CRCL DRUG DOSING (CG) 31.81 mL/min
[2022-12-29] MEDS ORDERED: Pantoprazole 40 MG Tab.CR PO SCH (07:30)
[2022-12-29] MEDS ORDERED: Aspirin 81 MG Tab.EC PO SCH (09:00)
[2022-12-29] MEDS: Isosorbide Mononitrate 30 MG Tab.ER PO SCH (09:03)
[2022-12-29] MEDS: Metoprolol Tartrate 25 MG Tab PO SCH (09:04)
[2022-12-29] MEDS: PALIPERIDONE 6 MG PO SCH (10:38)
[2022-12-29] MEDS: Nystatin Topical Powder 15 GM Bottle TOP SCH (14:12)
[2022-12-29 15:52] VITALS: BP 123/61; PULSE 82
== END 2022-12-29 17:30 | disposition home health service (06) ==
LOC: MW.ED 15:29 → MW.MS 19:22
PROVIDERS: ADMIT Internal Medicine; ATTEND Internal Medicine
DX: K57.92 Diverticulitis of intestine, part unspecified, without perforation or abscess without bleeding (principal); B37.9 Candidiasis, unspecified; N39.0 Urinary tract infection, site not specified; I13.0 Hypertensive heart and chronic kidney disease with heart failure and stage 1 through stage 4 chronic kidney disease, or unspecified chronic kidney disease; I50.32 Chronic diastolic (congestive) heart failure; E11.22 Type 2 diabetes mellitus with diabetic chronic kidney disease; N18.30 Chronic kidney disease, stage 3 unspecified; R07.9 Chest pain, unspecified; I25.10 Atherosclerotic heart disease of native coronary artery without angina pectoris; I63.9 Cerebral infarction, unspecified; K21.9 Gastro-esophageal reflux disease without esophagitis; E78.5 Hyperlipidemia, unspecified; F20.9 Schizophrenia, unspecified; I25.2 Old myocardial infarction; R53.1 Weakness; F32.A Depression, unspecified; E66.9 Obesity, unspecified; Z68.38 Body mass index [BMI] 38.0-38.9, adult; G47.33 Obstructive sleep apnea (adult) (pediatric); Z79.82 Long term (current) use of aspirin; Z79.02 Long term (current) use of antithrombotics/antiplatelets; Z79.899 Other long term (current) drug therapy; Z91.048 Other nonmedicinal substance allergy status
CPT/HCPCS: 36415; 71045; 74177; 80048; 80053; 81001; 83690; 83735; 84484; 85025; 87086; 93005; 97162; 97530; A9270; J0744; J3475; J3490; Q9967; 93010; 96365; 96368; 99284; 99285-25